=== PATIENT | male | born 1940 | race Caucasian/White ===

== ENCOUNTER 2017-09-04 17:38 | Inpatient (IN) ==
[2017-09-04] MEDS ORDERED: 0.9 % Sodium Chloride 1,000 ML IVC ONE (20:30)
--- NOTE | 2017-09-04 20:48 | Emergency Department Note ---
Disposition Clinical Impression: SIRS (systemic inflammatory response syndrome), Hyperglycemia, Acute cholecystitis, Generalized weakness Disposition: Admitted As Inpatient Condition: Good General Adult HPI - General Chief complaint: ED General Medical Stated complaint: Hyperglycemia Time Seen by Provider: 09/04/17 20:23 Source: patient, family Mode of arrival: private vehicle Limitations: no limitations Nursing Notes Reviewed: Yes Vital Signs Reviewed: Yes - History of Present Illness HPI Narrative: 76-year-old male history of type 2 diabetes treated with oral medications who presents to the ER due to hyperglycemia and weakness. Reports elevated sugars for the last 2-3 days. He is also felt weak during that time. No focal weakness just general. He called his primary care provider today who told him to come here since his glucose was high. He denies any recent illnesses. No chest pain or shortness of breath. No abdominal pain. He did have one episode of vomiting yesterday. No dysuria or hematuria. No recent changes in his medications. No other complaints. Pt Subjective Complaint: Weakness, hyperglycemia Onset (ago): day(s) Pain Scale: 0 Improves with: nothing Worsens with: nothing Associated symptoms: Reports: cough. Denies: chest pain, fever/chills, shortness of breath Treatments Prior to Arrival: none - Related Data Home Medications Medication Instructions Recorded Confirmed GlipiZIDE 10 mg PO DAILY 11/13/15 03/08/16 Lisinopril-HCTZ 10-12.5 [Prinzide 1 each PO DAILY 11/13/15 03/08/16 10-12.5] Metformin HCl [Glucophage] 1,000 mg PO BID 11/13/15 03/08/16 Pioglitazone [Actos] 45 mg PO DAILY 11/13/15 03/08/16 Pravastatin Sodium 10 mg PO DAILY 11/13/15 03/08/16 Aspirin EC 325 mg PO BID 03/08/16 03/08/16 Ferrous Sulfate [Iron] 325 mg PO DAILY 03/08/16 03/08/16 HYDROcodone/Acet 5/325 mg [Benld 1 tab PO Q4HR PRN 03/08/16 03/08/16 5-325 mg] Previous Rx's Medication Instructions Recorded HYDROcodone/Acet 5/325 mg [Benld 1 tab PO Q6HR PRN #20 tablet 11/16/15 5-325 mg] Allergies Allergy/AdvReac Type Severity Reaction Status Date / Time No Known Allergies Allergy Verified 11/12/15 21:17 All systems ED: reviewed and negative except as stated. Constitutional: Denies: fever Cardiovascular: Denies: chest pain Respiratory: Reports: cough. Denies: dyspnea Gastrointestinal: Denies: abdominal pain, nausea, vomiting, diarrhea Neurological: Reports: weakness Past Medical History - Past Medical History Attestation: Yes The following information was validated with the patient. Source: patient Medical history: Reports: arthritis, diabetes, hyperlipidemia, hypertension, other Surgical history: Reports: cataract Psychiatric history: Reports: no psych history - Social History Smoking Status: Former smoker Smokeless Tobacco Status: No Alcohol use: Reports: none Drug use: Reports: none Physical Exam - General Limitations: no limitations General appearance: alert, in no apparent distress - Head Head exam: atraumatic, normocephalic - Eye Eye exam: Present: normal appearance - ENT ENT exam: normal exam - Neck Neck exam: Present: normal inspection, full ROM - Chest Chest inspection: Present: normal inspection, symmetric chest wall rise - Respiratory Respiratory exam: Present: normal lung sounds bilaterally - Cardiovascular Cardiovascular exam: Present: regular rate, normal rhythm, normal heart sounds - Abdominal Exam Abdominal exam: Present: soft, Non-Tender. Absent: tenderness, distention, rigidity - Extremities Exam Extremities exam: Present: normal inspection, full ROM - Expanded Upper Extremity Exam Shoulder exam: Present: normal inspection, full ROM Arm exam: Present: normal inspection, full ROM Elbow exam: Present: normal inspection, full ROM Forearm/Wrist exam: Present: normal inspection, full ROM Hand exam: Present: normal inspection, full ROM - Expanded Lower Extremity Exam Hip/Pelvis exam: Present: normal inspection, full ROM Upper leg exam: Present: normal inspection, full ROM Knee exam: Present: normal inspection, full ROM Lower leg exam: Present: normal inspection, full ROM Ankle exam: Present: normal inspection, full ROM Foot/toe exam: Present: normal inspection, full ROM - Psychiatric Psychiatric exam: Present: normal affect - Skin Skin exam: Present: warm, dry Course Course Narrative: Patient seen and examined. Vital signs reviewed. We will check labs for evaluation of DKA as well as urinalysis and chest x-ray given his cough. - Reevaluation(s) Reevaluation #1: Discussed results of labs and imaging with the patient. He does meet SIRS criteria. No obvious source. CT scan of the abdomen and pelvis and admission as well as broad-spectrum antibiotics. Reevaluation #2: CT with evidence of acute cholecystitis. LFTs ordered. Patient has no Abdominal pain. - Consultations Consultation #1: I spoke with the on-call surgeon Dr. Harden. Discussed the patient's history exam imaging and labs. They will see the patient consultation in the morning. Requests to have the patient on antibiotics. Vital Signs Temperature 99.6 F 09/04/17 18:50 Pulse Rate 112 09/04/17 18:50 Respiratory Rate 18 09/04/17 18:50 Blood Pressure 146/70 09/04/17 18:50 O2 Sat by Pulse Oximetry 96 09/04/17 18:50 Temperature 98.6 F 09/05/17 02:36 Pulse Rate 116 09/05/17 02:36 Respiratory Rate 14 09/05/17 02:36 Blood Pressure 169/79 09/05/17 02:36 O2 Sat by Pulse Oximetry 96 09/05/17 03:15 Oxygen Delivery Oxygen Delivery Room Air Medical Decision Making - [facility] Narrative Medical decision making narrative: 76-year-old male presents to the ER due to hyperglycemia and weakness for 2 days. He is afebrile here. Slightly tachycardic noted to have a leukocytosis of 22 without a source. Patient also hyperglycemic. Patient given broad- spectrum antibiotics. CT scan of the abdomen and pelvis well. Report of acute cholecystitis. LFTs, lipase and alkaline phosphatase are normal. Case discussed with general surgery who will see in consultation. Admitted to the hospitalist service. - Lab Data Lab results reviewed: Yes I reviewed the patient's lab results. Result diagrams: 09/04/17 20:40 09/04/17 20:40 Lab Results 09/04/17 09/04/17 09/04/17 Range/Units 18:52 20:40 20:40 WBC 22.0 H (4.3-11.1) K/mcL RBC 3.59 L (4.19-5.50) M/mcL Hgb 11.3 L (12.9-16.9) g/dL Hct 34.0 L (37.5-50.1) % MCV 94.7 (83.0-100.0) fL MCH 31.5 (28.0-33.3) pg MCHC 33.2 (31.6-35.5) g/dL RDW 11.9 (11.5-14.5) % Plt Count 304 (140-400) K/mcL MPV 11.0 (9.4-12.4) fL Immature Gran % 0.7 (0-4) % Seg Neutrophils % 81.7 % Lymphocytes % 6.6 % Monocytes % 8.7 % Eosinophils % 2.0 % Basophils % 0.3 % Neutrophils # 18.0 H (1.6-8.9) K/mcL Lymphocytes # 1.5 (0.6-4.6) K/mcL Monocytes # 1.9 H (0.0-1.3) K/mcL Eosinophils # 0.4 (0.0-0.6) K/mcL Basophils # 0.1 (0.0-0.2) K/mcL PT (9.4-12.1) Seconds INR VBG pH (7.32-7.42) pH Units VBG pCO2 (41-51) mmHg VBG pO2 (25-50) mmHg VBG HCO3 (21-27) mEq/L Sodium 129 L (136-145) mEq/L Potassium 4.2 (3.5-5.1) mEq/L Chloride 93 L (98-107) mEq/L Carbon Dioxide 27 (23-29) mEq/L BUN 47 H (8-23) mg/dL Creatinine 1.40 H (0.70-1.30) mg/dL Est GFR ( Amer) 60 (> 60) Est GFR (Non-Af Amer) 49 L (> 60) BUN/Creatinine Ratio 34 H (6-26) Glucose 379 H (70-105) mg/dL POC Glucose 387 H (58-89) Calculated Osmolality 296 (280-300) Lactic Acid (0.5-2.2) mmol/L Calcium 9.6 (8.6-10.3) mg/dL Total Bilirubin (0.3-1.0) mg/dL Direct Bilirubin (0.0-0.2) mg/dL Indirect Bilirubin (0.0-1.2) mg/dL AST (13-39) Units/L ALT (7-52) Units/L Alkaline Phosphatase (34-104) Units/L Serum Total Protein (6.4-8.9) g/dL Albumin (3.5-5.7) g/dL Globulin (2.4-3.5) g/dL Albumin/Globulin Ratio (1.1-2.2) Lipase (11-82) Units/L Beta-Hydroxybutyric Acd (0.02-0.27) mmol/L Urine Color (Yellow) Urine Clarity (Clear) Urine pH (5.0-8.0) pH Units Ur Specific [place] (1.010-1.025) Urine Protein (Neg-Trace) mg/dL Urine Glucose (UA) (Normal) mg/dL Urine Ketones (Negative) mg/dL Urine Blood (Negative) Urine Nitrite (Negative) Urine Bilirubin (Negative) Urine Urobilinogen (Normal) mg/dL Ur Leukocyte Esterase (Negative) Urine Microscopic RBC (0-3) per hpf Urine Microscopic WBC (0-3) per hpf Ur Squamous Epith Cells (None-Few) per lpf Urine Bacteria (None-Few) per hpf Hyaline Casts (None-Few) per lpf Ur Culture Indicated? (NO) 09/04/17 09/04/17 09/04/17 Range/Units 20:40 20:59 21:33 WBC (4.3-11.1) K/mcL RBC (4.19-5.50) M/mcL Hgb (12.9-16.9) g/dL Hct (37.5-50.1) % MCV (83.0-100.0) fL MCH (28.0-33.3) pg MCHC (31.6-35.5) g/dL RDW (11.5-14.5) % Plt Count (140-400) K/mcL MPV (9.4-12.4) fL Immature Gran % (0-4) % Seg Neutrophils % % Lymphocytes % % Monocytes % % Eosinophils % % Basophils % % Neutrophils # (1.6-8.9) K/mcL Lymphocytes # (0.6-4.6) K/mcL Monocytes # (0.0-1.3) K/mcL Eosinophils # (0.0-0.6) K/mcL Basophils # (0.0-0.2) K/mcL PT (9.4-12.1) Seconds INR VBG pH 7.34 (7.32-7.42) pH Units VBG pCO2 54 H (41-51) mmHg VBG pO2 36 (25-50) mmHg VBG HCO3 29 H (21-27) mEq/L Sodium (136-145) mEq/L Potassium (3.5-5.1) mEq/L Chloride (98-107) mEq/L Carbon Dioxide (23-29) mEq/L BUN (8-23) mg/dL Creatinine (0.70-1.30) mg/dL Est GFR ( Amer) (> 60) Est GFR (Non-Af Amer) (> 60) BUN/Creatinine Ratio (6-26) Glucose (70-105) mg/dL POC Glucose (58-89) Calculated Osmolality (280-300) Lactic Acid (0.5-2.2) mmol/L Calcium (8.6-10.3) mg/dL Total Bilirubin (0.3-1.0) mg/dL Direct Bilirubin (0.0-0.2) mg/dL Indirect Bilirubin (0.0-1.2) mg/dL AST (13-39) Units/L ALT (7-52) Units/L Alkaline Phosphatase (34-104) Units/L Serum Total Protein (6.4-8.9) g/dL Albumin (3.5-5.7) g/dL Globulin (2.4-3.5) g/dL Albumin/Globulin Ratio (1.1-2.2) Lipase (11-82) Units/L Beta-Hydroxybutyric Acd 0.91 H (0.02-0.27) mmol/L Urine Color Yellow (Yellow) Urine Clarity Clear (Clear) Urine pH 5.5 (5.0-8.0) pH Units Ur Specific Al[place] 1.021 (1.010-1.025) Urine Protein 30 H (Neg-Trace) mg/dL Urine Glucose (UA) 500 H (Normal) mg/dL Urine Ketones Trace H (Negative) mg/dL Urine Blood Negative (Negative) Urine Nitrite Negative (Negative) Urine Bilirubin Small H (Negative) Urine Urobilinogen Normal (Normal) mg/dL Ur Leukocyte Esterase Negative (Negative) Urine Microscopic RBC 0-3 (0-3) per hpf Urine Microscopic WBC 0-3 (0-3) per hpf Ur Squamous Epith Cells Few (None-Few) per lpf Urine Bacteria None Seen (None-Few) per hpf Hyaline Casts None Seen (None-Few) per lpf Ur Culture Indicated? NO (NO) 09/04/17 09/05/17 09/05/17 Range/Units 23:17 00:43 00:43 WBC (4.3-11.1) K/mcL RBC (4.19-5.50) M/mcL Hgb (12.9-16.9) g/dL Hct (37.5-50.1) % MCV (83.0-100.0) fL MCH (28.0-33.3) pg MCHC (31.6-35.5) g/dL RDW (11.5-14.5) % Plt Count (140-400) K/mcL MPV (9.4-12.4) fL Immature Gran % (0-4) % Seg Neutrophils % % Lymphocytes % % Monocytes % % Eosinophils % % Basophils % % Neutrophils # (1.6-8.9) K/mcL Lymphocytes # (0.6-4.6) K/mcL Monocytes # (0.0-1.3) K/mcL Eosinophils # (0.0-0.6) K/mcL Basophils # (0.0-0.2) K/mcL PT 12.8 H (9.4-12.1) Seconds INR 1.2 VBG pH (7.32-7.42) pH Units VBG pCO2 (41-51) mmHg VBG pO2 (25-50) mmHg VBG HCO3 (21-27) mEq/L Sodium (136-145) mEq/L Potassium (3.5-5.1) mEq/L Chloride (98-107) mEq/L Carbon Dioxide (23-29) mEq/L BUN (8-23) mg/dL Creatinine (0.70-1.30) mg/dL Est GFR ( Amer) (> 60) Est GFR (Non-Af Amer) (> 60) BUN/Creatinine Ratio (6-26) Glucose (70-105) mg/dL POC Glucose (58-89) Calculated Osmolality (280-300) Lactic Acid 0.9 (0.5-2.2) mmol/L Calcium (8.6-10.3) mg/dL Total Bilirubin 0.5 (0.3-1.0) mg/dL Direct Bilirubin 0.2 (0.0-0.2) mg/dL Indirect Bilirubin 0.3 (0.0-1.2) mg/dL AST 16 (13-39) Units/L ALT 14 (7-52) Units/L Alkaline Phosphatase 72 (34-104) Units/L Serum Total Protein 7.3 (6.4-8.9) g/dL Albumin 3.4 L (3.5-5.7) g/dL Globulin 3.9 H (2.4-3.5) g/dL Albumin/Globulin Ratio 0.9 L (1.1-2.2) Lipase (11-82) Units/L Beta-Hydroxybutyric Acd (0.02-0.27) mmol/L Urine Color (Yellow) Urine Clarity (Clear) Urine pH (5.0-8.0) pH Units Ur Specific [place] (1.010-1.025) Urine Protein (Neg-Trace) mg/dL Urine Glucose (UA) (Normal) mg/dL Urine Ketones (Negative) mg/dL Urine Blood (Negative) Urine Nitrite (Negative) Urine Bilirubin (Negative) Urine Urobilinogen (Normal) mg/dL Ur Leukocyte Esterase (Negative) Urine Microscopic RBC (0-3) per hpf Urine Microscopic WBC (0-3) per hpf Ur Squamous Epith Cells (None-Few) per lpf Urine Bacteria (None-Few) per hpf Hyaline Casts (None-Few) per lpf Ur Culture Indicated? (NO) 09/05/17 Range/Units 00:43 WBC (4.3-11.1) K/mcL RBC (4.19-5.50) M/mcL Hgb (12.9-16.9) g/dL Hct (37.5-50.1) % MCV (83.0-100.0) fL MCH (28.0-33.3) pg MCHC (31.6-35.5) g/dL RDW (11.5-14.5) % Plt Count (140-400) K/mcL MPV (9.4-12.4) fL Immature Gran % (0-4) % Seg Neutrophils % % Lymphocytes % % Monocytes % % Eosinophils % % Basophils % % Neutrophils # (1.6-8.9) K/mcL Lymphocytes # (0.6-4.6) K/mcL Monocytes # (0.0-1.3) K/mcL Eosinophils # (0.0-0.6) K/mcL Basophils # (0.0-0.2) K/mcL PT (9.4-12.1) Seconds INR VBG pH (7.32-7.42) pH Units VBG pCO2 (41-51) mmHg VBG pO2 (25-50) mmHg VBG HCO3 (21-27) mEq/L Sodium (136-145) mEq/L Potassium (3.5-5.1) mEq/L Chloride (98-107) mEq/L Carbon Dioxide (23-29) mEq/L BUN (8-23) mg/dL Creatinine (0.70-1.30) mg/dL Est GFR ( Amer) (> 60) Est GFR (Non-Af Amer) (> 60) BUN/Creatinine Ratio (6-26) Glucose (70-105) mg/dL POC Glucose (58-89) Calculated Osmolality (280-300) Lactic Acid (0.5-2.2) mmol/L Calcium (8.6-10.3) mg/dL Total Bilirubin (0.3-1.0) mg/dL Direct Bilirubin (0.0-0.2) mg/dL Indirect Bilirubin (0.0-1.2) mg/dL AST (13-39) Units/L ALT (7-52) Units/L Alkaline Phosphatase (34-104) Units/L Serum Total Protein (6.4-8.9) g/dL Albumin (3.5-5.7) g/dL Globulin (2.4-3.5) g/dL Albumin/Globulin Ratio (1.1-2.2) Lipase 21 (11-82) Units/L Beta-Hydroxybutyric Acd (0.02-0.27) mmol/L Urine Color (Yellow) Urine Clarity (Clear) Urine pH (5.0-8.0) pH Units Ur Specific [place] (1.010-1.025) Urine Protein (Neg-Trace) mg/dL Urine Glucose (UA) (Normal) mg/dL Urine Ketones (Negative) mg/dL Urine Blood (Negative) Urine Nitrite (Negative) Urine Bilirubin (Negative) Urine Urobilinogen (Normal) mg/dL Ur Leukocyte Esterase (Negative) Urine Microscopic RBC (0-3) per hpf Urine Microscopic WBC (0-3) per hpf Ur Squamous Epith Cells (None-Few) per lpf Urine Bacteria (None-Few) per hpf Hyaline Casts (None-Few) per lpf Ur Culture Indicated? (NO) - Radiology Data Radiology results reviewed: Yes I reviewed the patient's radiology results. Chest X-Ray 09/04/17 20:29 IMPRESSION: No acute process. D/ / Michael Cabrales MD / Michael Cabrales MD Interpreting Provider: Michael Cabrales MD Chest X-Ray 09/04/17 20:29 IMPRESSION: No acute process. D/ / Michael Cabrales MD / Michael Cabrales MD Interpreting Provider: Michael Cabrales MD Abdomen/Pelvis CT 09/04/17 22:45 IMPRESSION: 1. There is extensive fat stranding within the right upper quadrant centered at the gallbladder. This is most compatible with acute calculus cholecystitis. 2. There is also evidence of mural thickening involving the 2nd and 3rd portions of duodenum, but that is probably reactive. D/ / Mike Al MD / Mike Al MD Interpreting Provider: Mike Al MD - EKG Data EKG #1 EKG attestation: Yes I reviewed and interpreted this EKG. EKG results narrative: EKG demonstrates sinus tachycardia with a rate of 106. Left axis deviation. Normal intervals. Normal R-wave progression. No gross ST elevations or depressions. No acute ischemic findings. No significant changes from previous EKG dated 04/17/17. Critical Care Time Critical Care Time: Yes Total Critical Care Time: 35 Attestation: Critical care performed: Time is exclusive of separately billable procedures. Time includes: direct patient care, patient reassessment, coordination of patient care, interpretation of data (laboratory data, radiology data, and respiratory data), review of patient's medical records, medical consultation and documentation of patient care. Procedures included in critical care time: Procedures excluded from critical care time: S.Oscar. - [place] Situation: Demographics, MOA Background: Presenting Complaint, Relevant PMH, Meds, & Allergies Assessment: Vital Signs, Course and respsone to treatment, Exam Concerns, Patient/Family Expectation, Pertinant Lab Results Recommendation: Barrier(s) to disposition, Recommendation based on pending studies, treatments, or consults SBrendon Report Given to: Dr. Keller Attestation Statement - Attestation Attestation: I, Shelton Peñaloza MD, personally evaluated this patient and discussed their management with the resident physician. I reviewed the resident's note and agree with the documented findings, medical decision making, and plan of care. 76-year-old male presents to the emergency department with a complaint of generalized weakness and high blood sugar for the past few days. She denies any cough or chest pain or shortness of breath. No fever. No nausea or vomiting. He states that he just does not feel well and feels weak. No GI bleed symptoms. No UTI symptoms. On examination patient is a well-developed well-nourished well-appearing elderly male in no acute distress. He is alert and oriented 3. There is no cyanosis or diaphoresis. Breath sounds are clear and equal bilaterally. Heart regular rate and rhythm. Abdomen is soft and nontender with normal bowel sounds. No gross focal neurological deficits. Labs reviewed. WBC 22. Chest x-ray negative. UA negative. CT of the abdomen and pelvis is pending. Patient meets surge criteria. The hospitalist, Dr. Keller, was consulted and accepted admission of the patient.
[2017-09-04 20:49] LABS: Basophils # 0.1 K/mcL (0.0-0.2); Basophils % 0.3 %; Eosinophils # 0.4 K/mcL (0.0-0.6); Hemoglobin 11.3 g/dL (12.9-16.9); Immature Granulocytes % 0.7 % (0-4); Lymphocytes # 1.5 K/mcL (0.6-4.6); Lymphocytes % 6.6 %; Mean Corpuscular HGB Conc 33.2 g/dL (31.6-35.5); Mean Corpuscular Hemoglobin 31.5 pg (28.0-33.3); Mean Corpuscular Volume 94.7 fL (83.0-100.0); Monocytes # 1.9 K/mcL (0.0-1.3); Monocytes % 8.7 %; Platelet Count 304 K/mcL (140-400); Red Blood Count 3.59 M/mcL (4.19-5.50); Red Cell Distribution Width 11.9 % (11.5-14.5); Segmented Neutrophils % 81.7 %
[2017-09-04 21:02] LABS: VBG HCO3 29 mEq/L (21-27); VBG PCO2 54 mmHg (41-51); VBG PH 7.34 pH Units (7.32-7.42); VBG PO2 36 mmHg (25-50)
[2017-09-04 21:34] LABS: Calcium 9.6 mg/dL (8.6-10.3); Potassium 4.2 mEq/L (3.5-5.1)
[2017-09-04 21:43] LABS: Bilirubin,Urine Small (Negative); Blood,Urine Negative (Negative); Clarity,Urine Clear (Clear); Color,Urine Yellow (Yellow); Glucose,Urine (UA) 500 mg/dL (Normal); Ketones,Urine Trace mg/dL (Negative); Leukocyte Esterase,Urine Negative (Negative); Nitrite,Urine Negative (Negative); PH,Urine 5.5 pH Units (5.0-8.0); Protein,Urine 30 mg/dL (Neg-Trace); Specific Gravity,Urine 1.021 (1.010-1.025); Urobilinogen,Urine Normal (Normal)
[2017-09-04 21:46] LABS: Bacteria,Urine None Seen per hpf (None-Few); Hyaline Casts,Urine None Seen per lpf (None-Few); RBC,Urine 0-3 per hpf (0-3); Squamous Epithelial Cell,Urine Few per lpf (None-Few); WBC,Urine 0-3 per hpf (0-3)
[2017-09-04] MEDS ORDERED: Piperacillin/Tazobactam 3.375 GM in 0.9 % Sodium Chloride Mini Bag 100 ML IVPB ONE (22:46)
[2017-09-05 01:04] LABS: INR 1.2; Prothrombin Time 12.8 Seconds (9.4-12.1)
[2017-09-05 01:24] LABS: Albumin 3.4 g/dL (3.5-5.7); Albumin/Globulin Ratio 0.9 (1.1-2.2); Bilirubin,Direct 0.2 mg/dL (0.0-0.2); Bilirubin,Indirect 0.3 mg/dL (0.0-1.2); Bilirubin,Total 0.5 mg/dL (0.3-1.0); Globulin 3.9 g/dL (2.4-3.5); Total Protein 7.3 g/dL (6.4-8.9)
[2017-09-05] MEDS ORDERED: Acetaminophen 325 MG TABLET PO PRN (01:42)
[2017-09-05] MEDS ORDERED: Naloxone 0.4 MG/ML INJ IVP PRN (01:42)
[2017-09-05] MEDS ORDERED: *HR* Dextrose 50 % in Water (Syg) 50 ML SYRINGE IVP PRN (01:51)
[2017-09-05] MEDS ORDERED: Dextrose Gel 15 GM/37.5 ML TUBE PO PRN ×2 (01:51)
[2017-09-05] MEDS ORDERED: D5% in Water 1,000 ML IVC PRN (01:51)
[2017-09-05] MEDS: 0.9 % Sodium Chloride 1,000 ML IVC SCH ×2 (03:15→13:04)
--- NOTE | 2017-09-05 04:49 | Internal Med History&Physical ---
Date of Encounter: 09/05/17 Time of Encounter: 01:00 Assessment and Plan (1) Sepsis Current visit: Yes Status: Acute Pt meets sepsis criteria with leukocytosis and tachycardia. Source of infection was considered cholecystitis. - Early goal directed IVF resuscitation started. - Initial lactate 0.9 - Will cont zosyn, f/u blood culture Qualifiers: Sepsis type: Escherichia coli Qualified Code(s): A41.51 - Sepsis due to Escherichia coli [E. coli] (2) Acute cholecystitis Current visit: Yes Status: Acute Pt denies abd pain but has signs of sepsis. Cont abx. - NPO, IVF. - Surgery consult - US gall bladder in AM - Pt has wnl liver enzyme, bilirubin and lipase (3) Generalized weakness Current visit: Yes Status: Acute Possibly due to sepsis. Flu test negative. (4) DVT prophylaxis Current visit: No Status: Acute EPCD for now, in case of surgery. May start AC after surgery. (5) Diabetes Current visit: No Status: Chronic Poorly controlled probably due to sepsis. Place pt on SSI. Qualifiers: Diabetes mellitus type: type 2 Diabetes mellitus complication status: without complication Diabetes mellitus manager terminal insulin use: without jail use Qualified Code(s): E11.9 - Type 2 diabetes mellitus without complications (6) HTN (hypertension) Current visit: No Status: Chronic Cont home meds. Qualifiers: Hypertension type: essential hypertension Qualified Code(s): I10 - Essential (primary) hypertension Internal Medicine - H&P: HPI Chief complaint: Weakness Admitted From: Home Plans for Post Hospital Care: Home History of present illness: Mr. Chavarria is a 76 year old male with Hx of HTN, DM, polio with both leg weakness present to ER for weakness and high blood sugar. Pt said weakness is generallized. Pt has one mechanical fall yesterday as well, denies head injury. Pt c/o runny nose for 3-4 days and nonproductive cough for weeks. Pt denies abd pain or nausea, but has poor appetite and has vomitted once on Friday, vomiting was liquid, no blood in it. Pt denies fever. In ER, he was found leukocytosis to 22K, neutrophil dominated. Further test shows CXR negative, UA unremarkable, but CT abd shows gall stone with cholecystitis. Pt was started zosyn in ER and surgical consult was called. Pt was admitted for further management. Past Med Surg Social Fam HX - Past Medical History Medical history: arthritis, diabetes, hyperlipidemia, hypertension, other Psychiatric history: no psych history - Past Surgical History Surgical History: cataract - Social History Smoking Status: Former smoker Smokeless Tobacco Status: No Alcohol use: none Drug use: none - Family History Mother History Unknown: Yes Internal Medicine - H&P: Meds GlipiZIDE 10 mg PO DAILY 11/13/15 [History] Lisinopril-HCTZ 10-12.5 [Prinzide 10-12.5] 1 each PO DAILY 11/13/15 [History] Metformin HCl [Glucophage] 1,000 mg PO BID 11/13/15 [History] Pioglitazone [Actos] 45 mg PO DAILY 11/13/15 [History] Pravastatin Sodium 10 mg PO DAILY 11/13/15 [History] HYDROcodone/Acet 5/325 mg [[place] 5-325 mg] 1 tab PO Q6HR PRN #20 tablet [Rx] Aspirin EC 325 mg PO BID 03/08/16 [History] Ferrous Sulfate [Iron] 325 mg PO DAILY 03/08/16 [History] HYDROcodone/Acet 5/325 mg [[place] 5-325 mg] 1 tab PO Q4HR PRN 03/08/16 [History] 3 Allergy/AdvReac Type Severity Reaction Status Date / Time No Known Allergies Allergy Verified 11/12/15 21:17 All Systems PM: A 10-system review of systems was performed and is negative for pertinent findings except as documented above in the HPI. - Constitutional Vitals: Temp Pulse Resp BP Pulse Ox 98.6 F 116 14 169/79 96 09/05/17 02:36 09/05/17 02:36 09/05/17 02:36 09/05/17 02:36 09/05/17 03:15 General appearance: Present: A&O X 3, no acute distress, answers questions appropriately - Head Head exam: Present: atraumatic, normocephalic - Eye Eye exam: Present: PERRL, conjuntiva pink, sclera anicteric Pupils: Present: PERRL - Neck Neck exam general surgery: Present: supple, trachea midline. Absent: lymphadenopathy - Respiratory Respiratory exam: Present: CTAB. Absent: accessory muscle use, rales, rhonchi, wheezes - Cardiovascular Cardiovascular exam: Present: RRR, +S1, +S2. Absent: diastolic murmur, gallop, rubs, systolic murmur - GI/Abdominal GI/Abdominal exam: Present: normal bowel sounds, soft, no peritoneal signs. Absent: distended, tenderness Additional comments: Morphy's sign negative - Extremities Exam Extremities exam: Present: warm, radial pulses palpable and symmetrical. Absent : calf tenderness, cyanotic, pedal edema - Neurological Exam Neurological exam: Present: CN II-XII intact, oriented X3, no focal deficits. Absent: pronater drift, facial droop, speech deficit - Skin Skin exam: Present: dry, intact Internal Med - H&P Results - Labs CBC & Chem 7: 09/04/17 20:40 09/04/17 20:40 - EKG Data -: EKG Interpreted by Myself EKG shows normal: sinus rhythm Rate: tachycardia
[2017-09-05] MEDS: Insulin LISPRO 300 UNITS/3 ML VIAL SQ SCH ×4 (05:18→17:29)
[2017-09-05] MEDS ORDERED: Insulin LISPRO 300 UNITS/3 ML VIAL SQ SCH (06:00)
[2017-09-05 06:05] LABS: Basophils % 0.2 %; Eosinophils # 0.5 K/mcL (0.0-0.6); Eosinophils % 2.8 %; Hematocrit 29.3 % (37.5-50.1); Immature Granulocytes % 1.1 % (0-4); Lymphocytes # 1.5 K/mcL (0.6-4.6); Lymphocytes % 8.6 %; Mean Corpuscular HGB Conc 33.1 g/dL (31.6-35.5); Mean Corpuscular Hemoglobin 31.1 pg (28.0-33.3); Mean Corpuscular Volume 93.9 fL (83.0-100.0); Mean Platelet Volume 11.1 fL (9.4-12.4); Monocytes # 1.6 K/mcL (0.0-1.3); Monocytes % 8.8 %; Platelet Count 259 K/mcL (140-400); Red Blood Count 3.12 M/mcL (4.19-5.50); Red Cell Distribution Width 11.9 % (11.5-14.5); Segmented Neutrophils % 78.5 %
[2017-09-05 06:07] LABS: Hemoglobin 9.7 g/dL (12.9-16.9)
[2017-09-05 06:19] LABS: BUN/Creatinine Ratio 32 (6-26); Blood Urea Nitrogen 39 mg/dL (8-23); Calcium 8.6 mg/dL (8.6-10.3); Carbon Dioxide 24 mEq/L (23-29); Chloride 99 mEq/L (98-107); Glucose 313 mg/dL (70-105); Magnesium 1.6 mg/dL (1.6-2.6); Osmolality,Calculated 295 (280-300); Sodium 132 mEq/L (136-145); eGFR For African Americans > 60 (> 60); eGFR For Non-African Americans 58 (> 60)
--- NOTE | 2017-09-05 11:09 | General Surgery Consult Note ---
Date of Encounter: 09/05/17 Time of Encounter: 10:45 Assessment and Plan (1) Cholelithiasis Current Visit: Yes Status: Acute Patient is asymptomatic- denies any abdominal pain, nausea/vomiting, diarrhea/ constipation No urgent surgical intervention indicated at this time. Gallbladder is an unlikely source of the patient's sepsis Qualifiers: Cholelithiasis location: gallbladder Cholecystitis presence: without cholecystitis Biliary obstruction: without biliary obstruction Qualified Code(s): K80.20 - Calculus of gallbladder without cholecystitis without obstruction History of Present Illness Consult date: 09/05/17 Reason for consult: other (Abnormal CT) Requesting physician: Alex Holman History of present illness: Mr. Chavarria is a very pleasant 76 year old male who states he reported to the ED with complaints of elevated blood sugars and generalized weakness. He has a past medical history for Type 2 DM, HTN, HLD, post polio syndrome. His work-up in the ED included a CT scan of the abdomen/pelvis. The imaging shows concerns for cholecystitis. We have been asked to see and evaluate the patient for further evaluation. He denies any abdominal pain. He denies any nausea or vomiting. He denies any diarrhea or constipation. He denies any decrease in appetite or unexplained weight loss. He denies any significant reflux. Past Med Surg Social Fam HX - Past Medical History Source: patient, old records reviewed Medical history: arthritis, diabetes, hyperlipidemia, hypertension, other (post polio syndrome) Psychiatric history: no psych history - Past Surgical History Surgical History: cataract, orthopedic, other (Right hip surgery) - Social History Smoking Status: Former smoker Smokeless Tobacco Status: No Alcohol use: none (Quit 20 years ago) Drug use: none Current living situation: Home - Independent, Home Activity Level: Wheelchair bound - Family History Mother History Unknown: Yes Medications and Allergies Metformin HCl [Glucophage] 1,000 mg PO BID 11/13/15 [History] Pioglitazone [Actos] 45 mg PO DAILY 11/13/15 [History] Ferrous Sulfate [Iron] 325 mg PO DAILY 03/08/16 [History] GlipiZIDE XL (24 HR) [Glucotrol XL] 10 mg PO BID 09/05/17 [History] Lisinopril [Zestril] 10 mg PO DAILY 09/05/17 [History] Multivit-Min/FA/Lycopen/Lutein [A Thru Z Select Multivit Tab] 1 tab PO DAILY [History] Pravastatin Sodium [Pravachol] 80 mg PO DAILY 09/05/17 [History] hydroCHLOROthiazide [Hydrochlorothiazide] 25 mg PO DAILY 09/05/17 [History] 3 Allergy/AdvReac Type Severity Reaction Status Date / Time No Known Allergies Allergy Verified 11/12/15 21:17 Review of Systems All systems PM: reviewed and no additional remarkable complaints except as stated (in the HPI) All systems PM: A 10-system review of systems was performed and is negative for pertinent findings except as documented above in the HPI. General Surgery Exam Initial Vital Signs Temp Pulse Resp BP Pulse Ox 99.6 F 112 18 146/70 96 09/04/17 18:50 09/04/17 18:50 09/04/17 18:50 09/04/17 18:50 09/04/17 18:50 - General physical appearance well developed, well nourished, no distress, no pain, chronically ill - Eyes PERRL, normal ocular movement - ENT normal mucosa, atraumatic, normocephalic - Neck trachea midline - Respiratory normal respiratory effort, clear to auscultation - Cardiovascular Cardiovascular exam: Present: RRR - Abdomen Abdomen general surgery: Present: bowel sounds present, soft, non tender - Integumentary Integumentary general surgery: Present: warm and dry - Neurologic Present: CN 2-12 grossly intact - Psychiatric Psychiatric general surgery: Present: appropriate, oriented to person, oriented to place, oriented to time, speech is normal, memory intact Exam Initial Vital Signs Temp Pulse Resp BP Pulse Ox 99.6 F 112 18 146/70 96 09/04/17 18:50 09/04/17 18:50 09/04/17 18:50 09/04/17 18:50 09/04/17 18:50 Results - Labs 09/05/17 05:39 09/05/17 05:39 Abnormal lab results WBC 17.8 K/mcL (4.3-11.1) H 09/05/17 05:39 RBC 3.12 M/mcL (4.19-5.50) L 09/05/17 05:39 Hgb 9.7 g/dL (12.9-16.9) L D 09/05/17 05:39 Hct 29.3 % (37.5-50.1) L 09/05/17 05:39 Neutrophils # 14.0 K/mcL (1.6-8.9) H 09/05/17 05:39 Monocytes # 1.6 K/mcL (0.0-1.3) H 09/05/17 05:39 PT 12.8 Seconds (9.4-12.1) H 09/05/17 00:43 VBG pCO2 54 mmHg (41-51) H 09/04/17 20:59 VBG HCO3 29 mEq/L (21-27) H 09/04/17 20:59 Sodium 132 mEq/L (136-145) L 09/05/17 05:39 BUN 39 mg/dL (8-23) H 09/05/17 05:39 Est GFR (Non-Af Amer) 58 (> 60) L 09/05/17 05:39 BUN/Creatinine Ratio 32 (6-26) H 09/05/17 05:39 Glucose 313 mg/dL (70-105) H 09/05/17 05:39 POC Glucose 387 (58-89) H 09/04/17 18:52 Albumin 3.4 g/dL (3.5-5.7) L 09/05/17 00:43 Globulin 3.9 g/dL (2.4-3.5) H 09/05/17 00:43 Albumin/Globulin Ratio 0.9 (1.1-2.2) L 09/05/17 00:43 Beta-Hydroxybutyric Acd 0.91 mmol/L (0.02-0.27) H 09/04/17 20:40 Urine Protein 30 mg/dL (Neg-Trace) H 09/04/17 21:33 Urine Glucose (UA) 500 mg/dL (Normal) H 09/04/17 21:33 Urine Ketones Trace mg/dL (Negative) H 09/04/17 21:33 Urine Bilirubin Small (Negative) H 09/04/17 21:33 Diabetes panel 09/05/17 Range/Units 05:39 Sodium 132 L (136-145) mEq/L Potassium 4.0 (3.5-5.1) mEq/L Chloride 99 (98-107) mEq/L Carbon Dioxide 24 (23-29) mEq/L BUN 39 H (8-23) mg/dL Creatinine 1.21 (0.70-1.30) mg/dL Glucose 313 H (70-105) mg/dL Calcium 8.6 (8.6-10.3) mg/dL Calcium panel 09/05/17 Range/Units 05:39 Calcium 8.6 (8.6-10.3) mg/dL Pituitary panel 09/05/17 Range/Units 05:39 Sodium 132 L (136-145) mEq/L Potassium 4.0 (3.5-5.1) mEq/L Chloride 99 (98-107) mEq/L Carbon Dioxide 24 (23-29) mEq/L BUN 39 H (8-23) mg/dL Creatinine 1.21 (0.70-1.30) mg/dL Glucose 313 H (70-105) mg/dL Calcium 8.6 (8.6-10.3) mg/dL Adrenal panel 09/05/17 Range/Units 05:39 Sodium 132 L (136-145) mEq/L Potassium 4.0 (3.5-5.1) mEq/L Chloride 99 (98-107) mEq/L Carbon Dioxide 24 (23-29) mEq/L BUN 39 H (8-23) mg/dL Creatinine 1.21 (0.70-1.30) mg/dL Glucose 313 H (70-105) mg/dL Calcium 8.6 (8.6-10.3) mg/dL All other labs normal. - Imaging CT scan - abdomen: report reviewed CT scan - pelvis: report reviewed Additional studies: Chest X-Ray 09/04/17 20:29 IMPRESSION: No acute process. D/ / Michael Cabrales MD / Michael Cabrales MD Interpreting Provider: Michael Cabrales MD Abdomen/Pelvis CT 09/04/17 22:45 IMPRESSION: 1. There is extensive fat stranding within the right upper quadrant centered at the gallbladder. This is most compatible with acute calculus cholecystitis. 2. There is also evidence of mural thickening involving the 2nd and 3rd portions of duodenum, but that is probably reactive. D/ / Mike Al MD / Mike Al MD Interpreting Provider: Mike Al MD Gallbladder Ultrasound 09/05/17 07:30 IMPRESSION: 1. Cholelithiasis, equivocal for acute cholecystitis. Gallbladder wall thickness at the upper limits of normal; however, sonographic Garcia's sign was absent during the examination. Correlation with recent CT shows inflammation of the pericholecystic fat on CT suggestive of cholecystitis. 2. Mild nodularity of the liver contour. Please correlate with clinical history of cirrhosis. 3. No evidence of intra or extrahepatic duct dilation. D/ / 09/05/2017 08:42:55 Mario Ryan MD / sherice Interpreting Provider: Mario Ryan MD Consult Discharge Plan - Plan Referrals: Sobeida Dasilva CNP [Primary Care Provider] - 09/16/17 3:00 pm - Attending Attestation For this encounter, I have reviewed the [employer] or PA documentation, treatment plan, and medical decision making; and I have had face to face time with this patient.
--- NOTE | 2017-09-05 16:06 | Event Note ---
Date of Encounter: 09/05/17 Time of Encounter: 11:00 Patient did receive IV fluids overnight as well as antibiotics, and afebrile tachycardia has improved a.m. labs did reveal a drop in white count from 22-17. He does not have any abdominal complaints no pain on palpation and examination no nausea vomiting requesting to eat. CT scan does show some fat stranding around the gallbladder concerning for cholecystitis, gallbladder ultrasound also consistent with acute cholecystitis. Surgery did see the patient-does not feel that gallbladder is the source of the patient's leukocytosis and does not feel that a cholecystectomy or drainage tube is necessary at this time. Patient is able to eat. We will continue with IV fluids as well as antibiotics. Urinalysis does not reveal UTI at this time chest x-rays clear We will obtain stool samples, as well as respiratory panel.
[2017-09-06 00:19] LABS: Adenovirus Not Detected (Not Detect); Bordetella Pertussis Not Detected (Not Detect); Chlamydophila pneumoniae Not Detected (Not Detect); Coronavirus 229E Not Detected (Not Detect); Coronavirus HKU1 Not Detected (Not Detect); Coronavirus NL63 Not Detected (Not Detect); Coronavirus OC43 Not Detected (Not Detect); Human Metapneumovirus Not Detected (Not Detect); Human Rhinovirus/Enterovirus ***DETECTED*** (Not Detect); Influenza A Subtype 2009 H1 Not Detected (Not Detect); Influenza A Untypeable Not Detected (Not Detect); Influenza B Not Detected (Not Detect); Mycoplasma pneumoniae Not Detected (Not Detect); Parainfluenza Virus 1 Not Detected (Not Detect); Parainfluenza Virus 2 Not Detected (Not Detect); Parainfluenza Virus 3 Not Detected (Not Detect); Parainfluenza Virus 4 Not Detected (Not Detect); Respiratory Syncytial Virus Not Detected (Not Detect)
[2017-09-06] MEDS: Insulin LISPRO 300 UNITS/3 ML VIAL SQ SCH ×4 (00:46→17:38)
[2017-09-06 09:23] LABS: Basophils # 0.1 K/mcL (0.0-0.2); Basophils % 0.4 %; Eosinophils # 0.6 K/mcL (0.0-0.6); Eosinophils % 4.3 %; Hematocrit 31.3 % (37.5-50.1); Hemoglobin 10.1 g/dL (12.9-16.9); Immature Granulocytes % 1.4 % (0-4); Lymphocytes # 1.4 K/mcL (0.6-4.6); Lymphocytes % 10.4 %; Mean Corpuscular HGB Conc 32.3 g/dL (31.6-35.5); Mean Corpuscular Hemoglobin 30.9 pg (28.0-33.3); Mean Corpuscular Volume 95.7 fL (83.0-100.0); Mean Platelet Volume 11.2 fL (9.4-12.4); Monocytes # 1.1 K/mcL (0.0-1.3); Neutrophils # 9.9 K/mcL (1.6-8.9); Platelet Count 291 K/mcL (140-400); Red Blood Count 3.27 M/mcL (4.19-5.50); Red Cell Distribution Width 11.9 % (11.5-14.5); Segmented Neutrophils % 75.5 %
[2017-09-06 09:43] LABS: BUN/Creatinine Ratio 22 (6-26); Blood Urea Nitrogen 27 mg/dL (8-23); Calcium 8.5 mg/dL (8.6-10.3); Carbon Dioxide 24 mEq/L (23-29); Chloride 103 mEq/L (98-107); Glucose 205 mg/dL (70-105); Osmolality,Calculated 295 (280-300); Potassium 3.5 mEq/L (3.5-5.1); Sodium 137 mEq/L (136-145); eGFR For African Americans > 60 (> 60); eGFR For Non-African Americans 57 (> 60)
--- NOTE | 2017-09-06 12:53 | General Surgery Progress Note ---
Date of Encounter: 09/06/17 Time of Encounter: 12:51 - Assessment and Plan (1) Cholelithiasis Current Visit: Yes Status: Acute patient tolerating diet; no abdominal pain on exam; no surgical intervention needed cont to monitor; okay to d/c per primary from surgical standpoint; Qualifiers: Cholelithiasis location: gallbladder Cholecystitis presence: without cholecystitis Biliary obstruction: without biliary obstruction Qualified Code(s): K80.20 - Calculus of gallbladder without cholecystitis without obstruction Subjective Patient reports: no new complaints, feels better, tolerating liquids well, tolerating a regular diet, afebrile Objective Vital Signs - Last 8 Hours Temp Pulse Resp BP Pulse Ox 09/06/17 12:10 98.2 F 96 18 130/73 95 09/06/17 07:50 98.4 F 71 18 113/63 98 Intake and Output 09/05/17 09/06/17 09/06/17 23:59 07:59 15:59 Intake Total 200 / 200 100 / 100 Output Total 350 / 350 200 / 200 Balance -150 / -150 -200 / -200 100 / 100 Intake: IV Fluids 200 / 200 100 / 100 Zosyn 3.375 GM In 0.9 % Sodium 200 / 200 100 / 100 Chloride 100 ML @ 25 mls/hr IVPB Q8H [facility] Rx#:[id number] Output: Urine 350 / 350 200 / 200 Other: Weight 88.496 kg Blood Glucose* 296 156 345 Patient Weight 09/06/17 23:59 Weight 88.496 kg - General physical appearance no distress - ENT normocephalic - Respiratory normal expansion, normal respiratory effort - Cardiovascular Cardiovascular exam: Present: RRR - Abdomen Abdomen: Present: soft, non tender - Neurologic CN 2-12 grossly intact - Psychiatric oriented to time, oriented to person, oriented to place - Labs 09/06/17 08:57 09/06/17 08:57 Diabetes panel 09/06/17 Range/Units 08:57 Sodium 137 (136-145) mEq/L Potassium 3.5 (3.5-5.1) mEq/L Chloride 103 (98-107) mEq/L Carbon Dioxide 24 (23-29) mEq/L BUN 27 H (8-23) mg/dL Creatinine 1.23 (0.70-1.30) mg/dL Glucose 205 H (70-105) mg/dL Calcium 8.5 L (8.6-10.3) mg/dL Calcium panel 09/06/17 Range/Units 08:57 Calcium 8.5 L (8.6-10.3) mg/dL Pituitary panel 09/06/17 Range/Units 08:57 Sodium 137 (136-145) mEq/L Potassium 3.5 (3.5-5.1) mEq/L Chloride 103 (98-107) mEq/L Carbon Dioxide 24 (23-29) mEq/L BUN 27 H (8-23) mg/dL Creatinine 1.23 (0.70-1.30) mg/dL Glucose 205 H (70-105) mg/dL Calcium 8.5 L (8.6-10.3) mg/dL Adrenal panel 09/06/17 Range/Units 08:57 Sodium 137 (136-145) mEq/L Potassium 3.5 (3.5-5.1) mEq/L Chloride 103 (98-107) mEq/L Carbon Dioxide 24 (23-29) mEq/L BUN 27 H (8-23) mg/dL Creatinine 1.23 (0.70-1.30) mg/dL Glucose 205 H (70-105) mg/dL Calcium 8.5 L (8.6-10.3) mg/dL - VTE Documentation of Mechanical Device: Intermittent pneumatic compression device Consult Discharge Plan - Plan Referrals: Sobeida Dasilva CNP [Primary Care Provider] - 09/16/17 3:00 pm
[2017-09-06 16:13] VITALS: BP 116/62
--- NOTE | 2017-09-06 17:58 | Discharge Summary ---
Date of Encounter: 09/06/17 Time of Encounter: 17:54 - Discharge Diagnosis (1) Cholelithiasis Priority: Primary Status: Acute Comments: 1 patient denies any abdominal pain or nausea vomiting no pain on palpation of abdomen. CT scan did show some fat stranding around the gallbladder concerning for cholecystitis. He was seen by surgery who felt that her bladder was not the source of patient's-sepsis did not require any surgical intervention for drainage to. Patient was initiated on regular diet and has been tolerating well -new fevers and white count trending down.-Surgery okay to discharge Qualifiers: Cholelithiasis location: gallbladder Cholecystitis presence: without cholecystitis Biliary obstruction: without biliary obstruction Qualified Code(s): K80.20 - Calculus of gallbladder without cholecystitis without obstruction (2) Generalized weakness Priority: Primary Status: Acute Comments: 1 H and presented with weakness and elevated blood sugar he did have a mechanical fall home. He also had been experiencing 3-4 days of nonproductive cough nose. He denied any abdominal pain nausea did have some vomiting no diarrhea. Respiratory panel was completed was negative for influenza positive for entero/Rhino virus. Neck this has been contributing to patient's weakness- he was given IV fluids as well as Zosyn and has improved. He states he has been ambulating without difficulty tolerating oral intake.-We will discharged on Augmentin-since he has been experiencing some nonproductive cough for possible bronchitis will have him follow-up with primary care physician (3) Sepsis Priority: Primary Status: Acute Comments: 1 patient presented with tachycardia and elevated white count was given IV fluids and Zosyn -he has returned back to baseline. IT WAS RELATED TO CHOLECYSTITIS WAS SEEN BY SURGERY DID NOT FEEL THAT WAS A SOURCE OF INFECTION. SUSPECT THIS MAY BE RELATED TO Entero/ RHINOVIRUS. Qualifiers: Sepsis type: Escherichia coli Qualified Code(s): A41.51 - Sepsis due to Escherichia coli [E. coli] (4) Diabetes Priority: Secondary Status: Chronic Comments: Elevated blood sugar 379-trending down. This likely related to infectious process We will resume his home medication Qualifiers: Diabetes mellitus type: type 2 Diabetes mellitus complication status: without complication Diabetes mellitus snf insulin use: without extermination inspector use Qualified Code(s): E11.9 - Type 2 diabetes mellitus without complications (5) HTN (hypertension) Priority: Secondary Status: Chronic Comments: We will continue home medications Qualifiers: Hypertension type: essential hypertension Qualified Code(s): I10 - Essential (primary) hypertension - Discharge Medications Prescriptions: Amoxicillin/Clavulanate [Augmentin] 500 mg PO BIDWM #6 tablet Home Medications: Metformin HCl [Glucophage] 1,000 mg PO BID 11/13/15 [History] Pioglitazone [Actos] 45 mg PO DAILY 11/13/15 [History] Ferrous Sulfate [Iron] 325 mg PO DAILY 03/08/16 [History] GlipiZIDE XL (24 HR) [Glucotrol XL] 10 mg PO BID 09/05/17 [History] Lisinopril [Zestril] 10 mg PO DAILY 09/05/17 [History] Multivit-Min/FA/Lycopen/Lutein [A Thru Z Select Multivit Tab] 1 tab PO DAILY [History] Pravastatin Sodium [Pravachol] 80 mg PO DAILY 09/05/17 [History] hydroCHLOROthiazide [Hydrochlorothiazide] 25 mg PO DAILY 09/05/17 [History] Amoxicillin/Clavulanate [Augmentin] 500 mg PO BIDWM #6 tablet 09/06/17 [Rx] Allergies/Adverse Reactions: 3 Allergy/AdvReac Type Severity Reaction Status Date / Time No Known Allergies Allergy Verified 11/12/15 21:17 Date of admission: 09/05/17 02:01 Primary care physician: Sobeida Dasilva CNP Consults: 09/05/17 02:09 Consult to Surgery [CONS] Routine Consulting Provider: Surgery [facility] Reason for Consult: acute cholecystitis Time Notified: 02:09 Call Completed: Yes Discharging clinician: Celestina Goncalves Anticipated date of discharge: 09/06/17 - Patient Status Disposition: Home, Self-Care Condition: Good Functional capacity at discharge: independent ambulation Overall status at discharge: patient is progressing back to baseline - Discharge Instructions Instructions: Diabetes Mellitus Type 2 in Adults (DC), Acute Cough (GEN) Follow Up With: Sobeida Dasilva CNP [Primary Care Provider] - 09/16/17 3:00 pm - Diet and Activity Activity: increase activity as tolerated Diet: diabetic diet Interval History: Patient presented to the ER with weakness and high blood sugars. He been experiencing runny nose and nonproductive cough over the previous week. He denies any abdominal pain nausea he has poor appetite-with vomiting, he T was concerning for cholecystitis he was seen by surgery did not feel this was the source of his infectionor surgical intervention at this time. Urinalysis was clean chest x-ray was clear breast reveals showed rhinovirus. He is significantly improved after receiving IV fluids and antibiotics. States he feels much better has been ambulating tolerating his meals. He has he was in a stable Hospital course: Mr. Chavarria is a 76 year old male past medical history hypertension diabetes polio at both leg weakness. He presented to the ER with weakness and hypotension he been experiencing runny nose and nonproductive cough over the past weeks. CT abdomen did not show cholecystitis he was seen by surgery who did not feel this was discussed with his infection and did not require any surgical intervention. Urinalysis was negative for UTI chest x-ray no acute process Respiratory panel did show entero/rhinovirus. He received IV fluids as well as Zosyn. His symptoms have improved white count returned to normal hemodynamically stable. He is eating and drinking no nausea vomiting in the waiting room without difficulty. He will be discharged home on Augmentin for any underlying bronchitis. I did review medications and follow-up appointments patient to verbalize understanding. - Time Spent with Patient Total time spent providing and/or coordinating discharge services: - Constitutional Vitals: Temp Pulse Resp BP Pulse Ox 98.2 F 76 18 116/62 98 09/06/17 16:10 09/06/17 16:10 09/06/17 16:10 09/06/17 16:10 09/06/17 16:10 General appearance: Present: A&O X 3, no acute distress, answers questions appropriately - Head Head exam: Present: atraumatic, normocephalic - Eye Eye exam: Present: PERRL, conjuntiva pink, sclera anicteric Pupils: Present: PERRL - Neck Neck exam general surgery: Present: supple, trachea midline. Absent: lymphadenopathy - Respiratory Respiratory exam: Present: CTAB. Absent: accessory muscle use, rales, rhonchi, wheezes - Cardiovascular Cardiovascular exam: Present: RRR, +S1, +S2. Absent: diastolic murmur, gallop, rubs, systolic murmur - GI/Abdominal GI/Abdominal exam: Present: normal bowel sounds, soft, no peritoneal signs. Absent: distended, tenderness - Extremities Exam Extremities exam: Present: warm, radial pulses palpable and symmetrical. Absent : calf tenderness, cyanotic, pedal edema - Neurological Exam Neurological exam: Present: CN II-XII intact, oriented X3, no focal deficits. Absent: pronater drift, facial droop, speech deficit - Skin Skin exam: Present: dry, intact - VTE Documentation of Mechanical Device: Intermittent pneumatic compression device
--- NOTE | 2017-09-07 17:35 | Electrocardiograph Report ---
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
== END 2017-09-06 21:46 | disposition home or self-care (01) | DRG 872 ==
LOC: EMEROO 17:38 → 3BNU 17:38
PROVIDERS: ADMIT Internal Medicine; ATTEND Registered Nurse

== ENCOUNTER 2018-05-11 19:35 | Inpatient (IN) ==
--- NOTE | 2018-05-11 19:54 | Emergency Department Note ---
Disposition Clinical Impression: Hyperkalemia [id number]-[id number] kidney injury Qualifiers: Acute renal failure type: unspecified Chronic kidney disease stage: unspecified stage Qualified Code(s): N17.9 - Acute kidney failure, unspecified Leukocytosis Qualifiers: Leukocytosis type: unspecified Qualified Code(s): D72.829 - Elevated white blood cell count, unspecified Disposition: Admitted As Inpatient Condition: Fair Referrals: Sobeida Dasilva CNP [Primary Care Provider] - Forms: ED Satisfaction Letter Time of Disposition: 21:38 General Adult HPI - General Chief complaint: ED Weakness Stated complaint: weakness Time Seen by Provider: 05/11/18 19:41 Source: patient, EMS Mode of arrival: EMS Limitations: no limitations Nursing Notes Reviewed: Yes Vital Signs Reviewed: Yes - History of Present Illness HPI Narrative: 77-year-old male with a history of hypertension, diabetes, chronic kidney disease presents for evaluation of generalized weakness. Patient states he has not felt well over the past couple days. Patient reports nausea and vomiting t hat started today as well as diarrhea. Patient denies any abdominal pain. Patient denies any fevers. No cough chest pain or shortness of breath. Patient states that he has had decreased by mouth intake earlier today. Patient states that they recently changed his diabetic medications 2 weeks ago. Denies any other changes in medications. Denies any trauma or falls. Pain Scale: 0 - Related Data Home Medications Medication Instructions Recorded Confirmed Metformin HCl [Glucophage] 1,000 mg PO BID 11/13/15 05/11/18 Pioglitazone [Actos] 45 mg PO DAILY 11/13/15 05/11/18 Ferrous Sulfate [Iron] 325 mg PO DAILY 03/08/16 05/11/18 GlipiZIDE XL (24 HR) [Glucotrol XL] 10 mg PO BID 09/05/17 05/11/18 Lisinopril [Zestril] 10 mg PO DAILY 09/05/17 05/11/18 Multivit-Min/FA/Lycopen/Lutein [A 1 tab PO DAILY 09/05/17 05/11/18 Thru Z Select Multivit Tab] Pravastatin Sodium [Pravachol] 80 mg PO DAILY 09/05/17 05/11/18 hydroCHLOROthiazide 12.5 mg PO DAILY 09/05/17 05/11/18 [Hydrochlorothiazide] Allergies Allergy/AdvReac Type Severity Reaction Status Date / Time No Known Allergies Allergy Verified 05/11/18 19:41 All systems ED: reviewed and negative except as stated. Constitutional: Denies: fever Cardiovascular: Denies: chest pain Respiratory: Denies: cough, dyspnea Gastrointestinal: Reports: nausea, vomiting, diarrhea. Denies: abdominal pain Past Medical History - Past Medical History Source: patient Medical history: Reports: arthritis, diabetes, hyperlipidemia, hypertension, renal disease, other Surgical history: Reports: cataract, orthopedic, other (Right hip surgery) Psychiatric history: Reports: no psych history - Social History Smoking Status: Former smoker Smokeless Tobacco Status: No Alcohol use: Reports: none Drug use: Reports: none Physical Exam - General Limitations: no limitations General appearance: alert, in no apparent distress - Head Head exam: atraumatic, normocephalic, normal inspection - Eye Eye exam: Present: normal appearance, PERRL, EOMI, miosis - ENT ENT exam: normal exam, normal oropharynx, mucous membranes moist - Neck Neck exam: Present: normal inspection - Chest Chest inspection: Present: normal inspection - Respiratory Respiratory exam: Present: normal lung sounds bilaterally. Absent: respiratory distress - Cardiovascular Cardiovascular exam: Present: regular rate, normal rhythm. Absent: systolic murmur - Abdominal Exam Abdominal exam: Present: soft, Non-Tender. Absent: guarding, rebound - Extremities Exam Extremities exam: Present: normal inspection. Absent: pedal edema - Back Exam Back exam: Present: normal inspection - Neurological Exam Neurological exam: Present: alert, oriented X3 - Expanded Neurological Exam Patient oriented to: Present: person, place, time Speech: Present: fluid speech Cranial nerves: EOM function (II, III, IV, ): Normal, facial sensation (V): Normal, facial palsy (VII): Normal, spinal accessory function (XI): Normal, tongue deviation (XII): Normal Motor strength - LUE: 5/5 Motor strength - RUE: 5/5 Motor strength - LLE: 5/5 Motor strength - RLE: 5/5 Coma Scale Eye Opening: Spontaneous Coma Scale Motor Response: Obeys Commands Coma Scale Verbal Response: Oriented Coma Scale Total: 15 - Skin Skin exam: Present: warm, dry, intact, normal color Course Course Narrative: Patient seen and examined. Patient's complaining of generalized weakness as well as GI symptoms with nausea and vomiting and diarrhea. Patient does have history of chronic kidney disease diabetes as well as hypertension. Patient with basic cardiopulmonary screening evaluation with EKG, chest x-ray troponin. Patient also get electrolyte evaluation and urinalysis. Disposition pending. - Reevaluation(s) Reevaluation #1: Patient seen and examined. Patient's updated on plan of care. Patient will be admitted for acute on chronic kidney disease. Time: 21:29 - Consultations Consultation #1: Discussed the case with Dr. Calderon who will evaluate the patient tomorrow. Time: 21:21 Vital Signs Temperature 97.7 F 05/11/18 19:37 Pulse Rate 90 05/11/18 19:37 Respiratory Rate 16 05/11/18 19:37 Blood Pressure 153/65 05/11/18 19:37 O2 Sat by Pulse Oximetry 99 05/11/18 19:37 Temperature 97.7 F 05/11/18 19:37 Pulse Rate 90 05/11/18 19:37 Respiratory Rate 16 05/11/18 19:37 Blood Pressure 153/65 05/11/18 19:37 O2 Sat by Pulse Oximetry 99 05/11/18 19:37 Medical Decision Making - [facility] Narrative Medical decision making narrative: Patient presents for concerns of generalized weakness and nausea vomiting and some diarrhea. Patient's abdominal exam is unremarkable. Based on the patient's physical exam the patient does not warrant any CT imaging of his abdomen. Patient's ED course is consistent with acute on chronic kidney disease . Discussed the case with Dr. Maloney get her will evaluate the patient tomorrow. Patient will have a full catheter placed her on any postobstructive uropathy. Patient is also given gradual fluid bolus with 500 mL of 0.9. Patient also be placed on maintenance. Patient's symptoms were controlled with nausea medications. Patient does not warrant immediate for emergent dialysis. Etiology of acute kidney injury is unknown the patient is describing GI losses notes likely prerenal. UA and urine electrodes are pending at this time. Patient does have a leukocytosis which is nonspecific. Patient's chest x-ray was obtained. Patient will get a urine culture. This point patient was not started on antibiotics as there is no clear source. Possibly volume contraction as well as the demargination with vomiting. - Lab Data Lab results reviewed: Yes I reviewed the patient's lab results. Result diagrams: 05/11/18 20:20 05/11/18 20:20 Lab Results 05/11/18 05/11/18 05/11/18 Range/Units 20:20 20:20 20:20 WBC 18.8 H (4.3-11.1) K/mcL RBC 3.63 L (4.19-5.50) M/mcL Hgb 11.7 L (12.9-16.9) g/dL Hct 33.6 L (37.5-50.1) % MCV 92.6 (83.0-100.0) fL MCH 32.2 (28.0-33.3) pg MCHC 34.8 (31.6-35.5) g/dL RDW 11.8 (11.5-14.5) % Plt Count 370 (140-400) K/mcL MPV 11.3 (9.4-12.4) fL Immature Gran % 0.5 (0-4) % Seg Neutrophils % 87.3 % Lymphocytes % 4.0 % Monocytes % 8.0 % Eosinophils % 0.0 % Basophils % 0.2 % Neutrophils # 16.4 H (1.6-8.9) K/mcL Lymphocytes # 0.8 (0.6-4.6) K/mcL Monocytes # 1.5 H (0.0-1.3) K/mcL Eosinophils # 0.0 (0.0-0.6) K/mcL Basophils # 0.0 (0.0-0.2) K/mcL Sodium 131 L (136-145) mEq/L Potassium 5.4 H (3.5-5.1) mEq/L Chloride 87 L (98-107) mEq/L Carbon Dioxide 24 (23-29) mEq/L BUN 98 H (8-23) mg/dL Creatinine 8.13 H (0.70-1.30) mg/dL Est GFR ( Amer) 8 L (> 60) Est GFR (Non-Af Amer) 6 L (> 60) BUN/Creatinine Ratio 12 (6-26) Glucose 251 H (70-105) mg/dL Calculated Osmolality 311 H (280-300) Lactic Acid 2.0 (0.5-2.2) mmol/L Calcium 10.7 H (8.6-10.3) mg/dL Total Bilirubin 0.3 (0.3-1.0) mg/dL AST 18 (13-39) Units/L ALT 14 (7-52) Units/L Alkaline Phosphatase 62 (34-104) Units/L Troponin I 0.03 (< 0.04) ng/mL Serum Total Protein 7.1 (6.4-8.9) g/dL Albumin 3.9 (3.5-5.7) g/dL Globulin 3.2 (2.4-3.5) g/dL Albumin/Globulin Ratio 1.2 (1.1-2.2) - Radiology Data Radiology results reviewed: Yes I reviewed the patient's radiology results. - EKG Data EKG #1 EKG attestation: Yes I reviewed and interpreted this EKG. EKG shows normal: sinus rhythm Rate: normal Rhythm: NSR [place]/QRS: left axis deviation Q waves: aVR Interpretation: no acute changes, nonspecific ST-T wave changes S.B.A.R. - S.B.A.RMateo Situation: Demographics Background: Presenting Complaint Assessment: Vital Signs, Course and respsone to treatment, Patient/Family Expectation Recommendation: Barrier(s) to disposition, Recommendation based on pending studies, treatments, or consults S.B.A.RMateo Report Given to: Dr. Oreilly SMateoBMateoAPaul Repor Time: 21:37 Attestation Statement - Attestation Attestation: I examined this patient and my medical decision-making was reviewed with the Resident Physician. I agree with the documented findings, disposition and treatment plan as described except to the extent set forth below. Findings consistent with acute renal failure. Will need admission for nephrology consultation and further management.
[2018-05-11] MEDS ORDERED: 0.9 % Sodium Chloride 500 ML IVC ONE (20:08)
[2018-05-11] MEDS ORDERED: Ondansetron 4 MG/2 ML VIAL IVP ONE (20:08)
[2018-05-11 20:34] LABS: Basophils % 0.2 %; Hematocrit 33.6 % (37.5-50.1); Hemoglobin 11.7 g/dL (12.9-16.9); Immature Granulocytes % 0.5 % (0-4); Lymphocytes # 0.8 K/mcL (0.6-4.6); Mean Corpuscular HGB Conc 34.8 g/dL (31.6-35.5); Mean Corpuscular Hemoglobin 32.2 pg (28.0-33.3); Mean Corpuscular Volume 92.6 fL (83.0-100.0); Mean Platelet Volume 11.3 fL (9.4-12.4); Monocytes # 1.5 K/mcL (0.0-1.3); Neutrophils # 16.4 K/mcL (1.6-8.9); Platelet Count 370 K/mcL (140-400); Red Blood Count 3.63 M/mcL (4.19-5.50); Red Cell Distribution Width 11.8 % (11.5-14.5); Segmented Neutrophils % 87.3 %
[2018-05-11 20:55] LABS: Albumin 3.9 g/dL (3.5-5.7); Albumin/Globulin Ratio 1.2 (1.1-2.2); Bilirubin,Total 0.3 mg/dL (0.3-1.0); Calcium 10.7 mg/dL (8.6-10.3); Globulin 3.2 g/dL (2.4-3.5); Potassium 5.4 mEq/L (3.5-5.1); Total Protein 7.1 g/dL (6.4-8.9)
[2018-05-11 20:56] LABS: Troponin I 0.03 ng/mL (< 0.04)
[2018-05-11] MEDS ORDERED: 0.9 % Sodium Chloride 1,000 ML IVC SCH (21:30)
[2018-05-11 21:53] LABS: Sodium, Urine 24.2 mEq/L
[2018-05-11 21:54] LABS: Bilirubin,Urine Negative (Negative); Blood,Urine Moderate (Negative); Clarity,Urine Turbid (Clear); Color,Urine Yellow (Yellow); Glucose,Urine (UA) 100 mg/dL (Normal); Ketones,Urine 15 mg/dL (Negative); Leukocyte Esterase,Urine Moderate (Negative); Nitrite,Urine Negative (Negative); Protein,Urine 100 mg/dL (Neg-Trace); Specific Gravity,Urine 1.026 (1.010-1.025); Urobilinogen,Urine Normal (Normal)
[2018-05-11 22:10] LABS: Granular Casts,Urine Few per lpf (None Seen)
[2018-05-11 22:12] LABS: Amorphous Sediment,Urine Moderate (Few); RBC,Urine 0-3 per hpf (0-3)
[2018-05-11] MEDS ORDERED: Naloxone 0.4 MG/ML INJ IVP PRN (23:37)
[2018-05-11] MEDS ORDERED: Ondansetron 4 MG/2 ML VIAL IVP PRN (23:37)
[2018-05-11] MEDS ORDERED: D5% in Water 1,000 ML IVC PRN (23:42)
[2018-05-11] MEDS ORDERED: *HR* Dextrose 50 % in Water (Syg) 50 ML SYRINGE IVP PRN (23:42)
[2018-05-11] MEDS ORDERED: Dextrose Gel 15 GM/37.5 ML TUBE PO PRN ×2 (23:42)
--- NOTE | 2018-05-11 23:47 | Internal Med History&Physical ---
Date of Encounter: 05/11/18 Time of Encounter: 23:00 Internal Medicine - H&P: HPI Chief complaint: Acute on chronic kidney disease Admitted From: Emergency Dept Plans for Post Hospital Care: Home History of present illness: Mr. Chavarria is a 77 year old male Patient presented to the ER with complaints of feeling tired. He states that ever since his PCP placed him on a new diabetic medication (Trullicity) he has felt weak. Initially this was changed as his PCP was concerned about possible harm to his kidneys. He states that he has also had diarrhea with vomiting today, as well as a loss of appetite. He denies chest and abdominal pain, dysuria, but has had decreased urine output. He has a history of chronic kidney disease stage III. In the ER patient's CBC was within normal limits. His potassium was 5.4, BUN was 98 and creatinine was 8.13. Patient's blood sugar was 251. Urinalysis was negative for infection, chest x-ray was stable. Nephrology was called and recommended IV fluid bolus, with a maintenance rate there after. A coleman catheter was placed in case of post obstructive uropathy. Emergent dialysis was not required, and nephrology agreed to consult on the patient in the morning. Upon my assessment patient states that he feels much better, denies nausea. He was resting comfortably in the hospital bed upon my arrival. He has a history of polio, and has weakness in his lower legs, left worse than right. He requires a wheelchair to get around, but is able to use a walker when he uses the restroom. Past Med Surg Social Fam HX - Past Medical History Medical history: arthritis, diabetes, hyperlipidemia, hypertension, renal diseas e, other Additional medical history: polio, hyperlipidemia, cataract Psychiatric history: no psych history - Past Surgical History Surgical History: cataract, orthopedic, other Additional surgical history: repair of right femur status post fall - Social History Smoking Status: Former smoker Smokeless Tobacco Status: No Alcohol use: none Drug use: none Internal Medicine - H&P: Meds Metformin HCl [Glucophage] 1,000 mg PO DAILY 11/13/15 [History] Pioglitazone [Actos] 45 mg PO DAILY 11/13/15 [History] Ferrous Sulfate [Iron] 325 mg PO DAILY 03/08/16 [History] GlipiZIDE XL (24 HR) [Glucotrol XL] 10 mg PO BID 09/05/17 [History] Lisinopril [Zestril] 10 mg PO DAILY 09/05/17 [History] Multivit-Min/FA/Lycopen/Lutein [A Thru Z Select Multivit Tab] 1 tab PO DAILY 09/05/17 [History] Pravastatin Sodium [Pravachol] 80 mg PO DAILY 09/05/17 [History] hydroCHLOROthiazide [Hydrochlorothiazide] 12.5 mg PO DAILY 09/05/17 [History] Dulaglutide [Trulicity] 0.75 mg SQ QWEEK 05/11/18 [History] Linagliptin [Tradjenta] 5 mg PO DAILY 05/11/18 [History] amLODIPine [Norvasc] 5 mg PO DAILY 05/11/18 [History] Allergy/AdvReac Type Severity Reaction Status Date / Time No Known Allergies Allergy Verified 05/11/18 19:41 All Systems PM: A 10-system review of systems was performed and is negative for pertinent findings except as documented above in the HPI. - Constitutional Vitals: Temp Pulse Resp BP Pulse Ox 97.7 F 92 14 150/49 93 05/11/18 19:37 05/11/18 22:15 05/11/18 22:15 05/11/18 22:15 05/11/18 22:15 General appearance: Present: cooperative, A&O X 3, pleasant, no acute distress, answers questions appropriately Exam: As above - Head Head exam: Present: normal inspection - Eye Eye exam: Present: EOMI, normal appearance - Respiratory Respiratory exam: Present: CTAB. Absent: chest wall tenderness, rales, wheezes - Cardiovascular Cardiovascular exam: Present: RRR, systolic murmur. Absent: diastolic murmur Additional comments: Grade 2 systolic murmur - GI/Abdominal GI/Abdominal exam: Present: normal bowel sounds, soft. Absent: tenderness - Extremities Exam Extremities exam: Present: warm, radial pulses palpable and symmetrical. Absent: calf tenderness, pedal edema, tenderness - Back Exam Back exam: Absent: CVA tenderness (L), CVA tenderness (R), tenderness - Neurological Exam Neurological exam: Absent: facial droop, speech deficit Additional comments: Decreased strength in the lower extremities secondary to history of polio. Right leg weakness worse than left - Skin Skin exam: Present: dry, normal color, warm Internal Med - H&P Results - Labs CBC & Chem 7: 05/12/18 00:25 05/12/18 05:24 Labs: Short CBC 05/11/18 Range/Units 20:20 WBC 18.8 H (4.3-11.1) K/mcL Hgb 11.7 L (12.9-16.9) g/dL Hct 33.6 L (37.5-50.1) % Plt Count 370 (140-400) K/mcL Neutrophils # 16.4 H (1.6-8.9) K/mcL BMP 05/11/18 20:20 Sodium 131 L Potassium 5.4 H Chloride 87 L Carbon Dioxide 24 BUN 98 H Creatinine 8.13 H Glucose 251 H Calcium 10.7 H Cardiac Enzymes 05/11/18 Range/Units 20:20 Troponin I 0.03 (< 0.04) ng/mL Liver Function 05/11/18 Range/Units 20:20 Total Bilirubin 0.3 (0.3-1.0) mg/dL AST 18 (13-39) Units/L ALT 14 (7-52) Units/L Alkaline Phosphatase 62 (34-104) Units/L Albumin 3.9 (3.5-5.7) g/dL Urine 05/11/18 Range/Units 21:35 Urine Color Yellow (Yellow) Urine Clarity Turbid A (Clear) Urine pH 5.0 (5.0-8.0) pH Units Ur Specific [place] 1.026 H (1.010-1.025) Urine Protein 100 H (Neg-Trace) mg/dL Urine Glucose (UA) 100 H (Normal) mg/dL - Impressions ITS Impressions Chest X-Ray 05/11/18 20:07 IMPRESSION: Stable portable study. D/ / Lynne Urban Cha, MD / Lynne Urban Cha, MD Interpreting Provider: Lynne Urban Cha, MD - Assessment and plan (1) Beomf-zq-hiybzvs kidney injury Current Visit: Yes Status: Acute Assessment and plan: Nephrology consulted in the ER. Recommended gradual fluid bolus, and maintenance normal saline, initiated in the ER. Coleman catheter placed. Patient has low urine output, likely due to his apparent kidney disease. Will avoid large fluid boluses at this time until nephrology can see him. Monitor strict I&Os Follow up recommendations from nephrology Retroperitoneal ultrasound in AM Continue IV fluids Qualifiers: Acute renal failure type: unspecified Chronic kidney disease stage: unspecified stage Qualified Code(s): N17.9 - Acute kidney failure, unspecified; N18.9 - Chronic kidney disease, unspecified (2) Hyperkalemia Current Visit: Yes Status: Acute Assessment and plan: Slightly elevated at 5.4, likely secondary to kidney disease. Ordered BMP 4 hours after initial lab, there was some confusion with the orders, but repeat potassium improved to 4.9. Patient will be started on low dose insulin for glucose control Repeat labs in the morning. Nephrology consult (3) Leukocytosis Current Visit: Yes Status: Acute Assessment and plan: Could be secondary to viral gastritis, chest x-ray stable likely not pneumonia. Patient also has acute kidney injury, UA was negative for nitrites but had positive leukocytic esterase. No other obvious source Continue to monitor Vital signs are stable. Qualifiers: Leukocytosis type: unspecified Qualified Code(s): D72.829 - Elevated white blood cell count, unspecified (4) Diabetes Current Visit: No Status: Chronic Assessment and plan: Patient not insulin dependent. Elevated blood sugars in the ER at 251. Diabetes could contribute to renal disease. Hold home meds Low dose sliding scale insulin as needed Diabetic diet Monitor sugars with meals and at night. Qualifiers: Diabetes mellitus type: type 2 Diabetes mellitus veneer [place] insulin use: without jail use Diabetes mellitus complication status: without complication Qualified Code(s): E11.9 - Type 2 diabetes mellitus without complications (5) HTN (hypertension) Current Visit: No Status: Chronic Assessment and plan: Current blood pressures controlled. 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 Continue to monitor Nursing assistance with moving from bed. (8) DVT prophylaxis Current Visit: No Status: Acute Assessment and plan: Subcutaneous heparin - Time Spent With Patient Total time spent is greater than 50% in coordination of care (as documented) at patient's floor/unit and/or counseling patient: Greater than 35 minutes
[2018-05-12 00:36] LABS: Hematocrit 34.3 % (37.5-50.1); Hemoglobin 11.6 g/dL (12.9-16.9); Mean Corpuscular HGB Conc 33.8 g/dL (31.6-35.5); Mean Corpuscular Hemoglobin 31.8 pg (28.0-33.3); Mean Platelet Volume 11.4 fL (9.4-12.4); Platelet Count 328 K/mcL (140-400); Red Blood Count 3.65 M/mcL (4.19-5.50); Red Cell Distribution Width 11.7 % (11.5-14.5)
[2018-05-12 00:55] LABS: Calcium 10.6 mg/dL (8.6-10.3); Phosphorous 5.6 mg/dL (2.7-4.5); Potassium 4.9 mEq/L (3.5-5.1)
[2018-05-12] MEDS: *HR* Heparin 5,000 UNIT/ML VIAL SQ SCH ×2 (05:55→20:39)
[2018-05-12] MEDS ORDERED: 0.9 % Sodium Chloride 250 ML IVC PRN (06:47)
[2018-05-12 06:53] LABS: Calcium 10.8 mg/dL (8.6-10.3); Potassium 5.2 mEq/L (3.5-5.1)
[2018-05-12] MEDS ORDERED: 0.9 % Sodium Chloride 1,000 ML PRIME SCH (07:00)
[2018-05-12] MEDS: Insulin LISPRO 300 UNITS/3 ML VIAL SQ SCH ×4 (08:13→20:39)
[2018-05-12 08:16] LABS: Hepatitis B Surface Antigen Nonreactive (Nonreactive)
[2018-05-12] MEDS ORDERED: *HR* Heparin 5,000 UNIT/ML VIAL ONE (08:36)
--- NOTE | 2018-05-12 08:37 | IR Procedure Note ---
Date of procedure: 05/12/18 Consent Obtained: Written consent Timeout: Correct patient and procedure verified, Correct site verified, Time out performed, Skin prep completed Local anesthetic: Lidocaine 1% Indications: renal failure Procedure Performed: temp HDC Was there an dietetic assistant present: No Site/Technique: rt IJ to RA Results/Findings: adequate placement Estimated blood loss (cc): 0 Complications: None; Tolerated procedure well Post Procedure Treatment Plan: ok to dialyze Specimen: none
[2018-05-12] MEDS ORDERED: *HR* Heparin 10,000 UNIT/10 ML VIAL IV PRN (11:01)
--- NOTE | 2018-05-12 11:23 | Nephrology Consult Note ---
Date of Encounter: 05/12/18 Time of Encounter: 10:11 Assessment and Plan (1) Diihk-rx-gdbjqob kidney injury Current Visit: Yes Status: Acute Acute on chronic kidney injury with elevated creatinine and poor urine output, and may also have acute tubular necrosis as there is granular casts in the urinalysis. This is likely multifactorial; prerenal having decreased oral intake of fluids, vomiting, diarrhea for 2 days. He has post-renal obstruction symptoms such as nocturia, increased urinary frequency for many years. He takes nephrotoxic medications such as hydrochlorothiazide, lisinopril, metformin. He denied recent imaging with contrast. -creatinine 8.92, at admission 8.13 (baseline 1.1-1.4) -GFR 6 (baseline 50-57) -I/O:1000/250 (not documented but I personally examined the patient's Owusu catheter bag) -elevated calcium and phosphorus levels -urinalysis significant for granular casts, leukocyte esterase, WBC, protein -currently has a Owusu catheter in place Plan: -will take patient for hemodialysis today after hemodialysis catheter placed by interventional radiology -retroperitoneal ultrasound pending -continue Owusu catheter in place as he likely has a post renal obstruction -recommended to avoid nephrotoxic agents, renal dose medications -strict I&O -continue to monitor serum creatinine and GFR Qualifiers: Acute renal failure type: unspecified Chronic kidney disease stage: unspecified stage Qualified Code(s): N17.9 - Acute kidney failure, un specified; N18.9 - Chronic kidney disease, unspecified (2) Hyperkalemia Current Visit: Yes Status: Acute (3) Hypercalcemia Current Visit: Yes Status: Acute Hypercalcemia likely secondary to acute kidney injury calcium 10.8 -management as above (4) Serum phosphate elevated Current Visit: Yes Status: Acute Elevated serum phosphate level likely secondary to acute kidney injury phosphorus 5.6 -management as above History of Present Illness - Reason for Consult Consult date: 05/11/18 Acute Kidney Injury, Chronic Kidney Disease Requesting physician: Kiko Gentile - Chief Complaint Weakness - History of Present Illness 77-year-old male with past medical history of hypertension, diabetes, CKD, polio presented to [facility] complaining of generalized weakness and was found to have an acute on chronic kidney injury with creatinine of 8.13. Nephrology was consulted for management. Upon examination of the patient he reported that the past 2 days he has had progressive weakness and fatigue that was not getting better so he decided he needed to go to the hospital for evaluation. He reported decreased oral intake of fluids, nausea, vomiting, diarrhea. He noted decrease in urination for 2 days but no change in color. He admits that for many years he has had urinary frequency, nocturia every hour to every 3 hours-he goes to the bathroom. He has even fluid restricted himself for quite some time so that he does not have to go to the bathroom quite as often at night. He has been compliant with all of his home medications including nephrotoxic agents such as lisinopril, hydrochlorthiazide, and metformin. He has never required dialysis before. He said he was told by his PCP he had CKD. Denies having recent imaging with contrast. He denies fever, chills, dysuria, hematuria, chest pain, shortness of breath, abdominal pain, melena, hematochezia. He denies cigarette smoking, alcohol use, drug use. No family history of cancer. Past Med Surg Social Fam HX - Past Medical History Attestation: Yes The following information was validated with the patient. Source: patient Medical history: arthritis, diabetes, hyperlipidemia, hypertension, renal disease, other Additional medical history: polio, hyperlipidemia, cataract Psychiatric history: no psych history - Past Surgical History Surgical History: cataract, orthopedic, other Additional surgical history: repair of right femur status post fall - Social History Smoking Status: Former smoker Smokeless Tobacco Status: No Alcohol use: none Drug use: none Medications and Allergies Metformin HCl [Glucophage] 1,000 mg PO DAILY 11/13/15 [History] Pioglitazone [Actos] 45 mg PO DAILY 11/13/15 [History] Ferrous Sulfate [Iron] 325 mg PO DAILY 03/08/16 [History] GlipiZIDE XL (24 HR) [Glucotrol XL] 10 mg PO BID 09/05/17 [History] Lisinopril [Zestril] 10 mg PO DAILY 09/05/17 [History] Multivit-Min/FA/Lycopen/Lutein [A Thru Z Select Multivit Tab] 1 tab PO DAILY 09/05/17 [History] Pravastatin Sodium [Pravachol] 80 mg PO DAILY 09/05/17 [History] hydroCHLOROthiazide [Hydrochlorothiazide] 12.5 mg PO DAILY 09/05/17 [History] Dulaglutide [Trulicity] 0.75 mg SQ QWEEK 05/11/18 [History] Linagliptin [Tradjenta] 5 mg PO DAILY 05/11/18 [History] amLODIPine [Norvasc] 5 mg PO DAILY 05/11/18 [History] Allergy/AdvReac Type Severity Reaction Status Date / Time No Known Allergies Allergy Verified 05/11/18 19:41 Review of Systems Constitutional: anorexia, fatigue, weakness, no chills, no fever(s), no he adache(s) Nose, mouth and throat: no dysphagia, no odynophagia Cardiovascular: no chest pain, no edema, no lightheadedness, no palpitations Respiratory: no cough, no dyspnea, no wheezing Gastrointestinal: diarrhea, nausea, vomiting, no abdominal pain, no constipation, no hematochezia, no melena Genitourinary Male: nocturia, urinary frequency, no difficulty urinating, no dy suria, no hematuria, no urinary hesitancy Musculoskeletal: no muscle cramps Integumentary: no changing lesions, no lesions, no rash Neurological: no abnormal speech, no dizziness, no headache(s) Exam - Vital Signs Vital signs: Initial Vital Signs Temp Pulse Resp BP Pulse Ox 97.7 F 90 16 153/65 99 05/11/18 19:37 05/11/18 19:37 05/11/18 19:37 05/11/18 19:37 05/11/18 19:37 Vital Signs - Last 8 Hours Temp Pulse Resp BP Pulse Ox 05/12/18 07:16 99.1 F 107 16 127/61 91 05/12/18 03:45 98.2 F 102 17 135/63 95 Intake and Output 05/11/18 05/12/18 05/12/18 23:59 07:59 15:59 Intake Total 1000 / 1000 Balance 1000 / 1000 Intake: IV Fluids 1000 / 1000 0.9 % Sodium Chloride 1,000 ML 1000 / 1000 @ 100 mls/hr IVC .Q10H [facility] Rx#: [id number] Other: Weight 85.4 kg Blood Glucose* 169 218 - General Appearance General appearance: well-developed, well-nourished, appears started age EENT: mucous membranes dry Neck: no JVD, supple Cardiology: no murmurs, no rub, no gallops, no edema, regular rate, regular rhythm - Dialysis Access Dialysis Vascular Access: Venous Catheter (Right-sided perma cath) Gastrointestinal: normoactive bowel sounds, no tenderness, no guarding, no organomegaly Integumentary: no rash, warm and dry Neurologic: no focal deficit, alert and oriented x3 Musculoskeletal: no erythema, no cyanosis Psychiatric: mood/affect appropriate, cooperative Results - Lab Results 05/12/18 00:25 05/12/18 05:24 Most recent lab results Calcium 10.8 mg/dL (8.6-10.3) H 05/12/18 05:24 Phosphorus 5.6 mg/dL (2.7-4.5) H 05/12/18 00:25 Urine Creatinine 92 mg/dL 05/11/18 21:35 Urine Sodium 24.2 mEq/L 05/11/18 21:35 Consult Discharge Plan - Plan Referrals: Sobeida Dasilva CNP [Primary Care Provider] -
--- NOTE | 2018-05-12 12:33 | Internal Med Progress Note ---
Hospitalist Progress Note - Encounter Date of Encounter: 05/12/18 Time of Encounter: 10:00 - Subjective Interval History: Pt still feels weak. No other complaints. - Exam Vitals: Temp Pulse Resp BP Pulse Ox 97 F L 107 18 131/59 91 05/12/18 10:45 05/12/18 07:16 05/12/18 10:45 05/12/18 11:45 05/12/18 07:16 Exam: Pt is AAO x3, in NAD HEENT: NC/AT, PERRL Neck: supple, no JVD Lungs: CTA b/l Heart: S1S2, RRR, no murmurs. Abd: Soft, NT, CVAT negative B/L Ext: No pedal edema Neuro: No focal deficit. - Assessment and Plan (1) Xormb-yp-zrjfbos kidney injury Current Visit: Yes Status: Acute Assessment and Plan: Etiology in undetermined. - Nephro consult on case. Plan for HD today. - US retroperitoneal shows no hydronephrosis. - Cont strict I/O, avoid nephrotoxic medications. (2) Leukocytosis Current Visit: Yes Status: Acute Assessment and Plan: Etiology undetermined. No signs of infection at this point. Trend down now, possibly reactive. No indication for abx now. (3) DVT prophylaxis Current Visit: No Status: Acute Assessment and Plan: Heparin SC (4) Hypercalcemia Current Visit: Yes Status: Acute Assessment and Plan: Mild hypercalcemia with CKD and acute renal failure. Etiology is undetermined. - Will repeat calcium level and check PTHi in AM (5) Hyperkalemia Current Visit: Yes Status: Acute Assessment and Plan: Possibly due to JEFFREY, plan for HD today. (6) Serum phosphate elevated Current Visit: Yes Status: Acute Assessment and Plan: Possibly due to JEFFREY, nephro on case and plan for HD. - Summary of Assessment and Plan Summary of Assessment and Plan: Heparin SC - Time Spent with Patient Total time spent is greater than 50% in coordination of care (as documented) at patient's floor/unit and/or counseling patient: 25 - 35 minutes Plan of Care Discussed with: patient Internal Medicine: Result - Labs CBC & Chem 7: 05/12/18 00:25 05/12/18 05:24 Labs: Short CBC 05/11/18 05/12/18 Range/Units 20:20 00:25 WBC 18.8 H 16.0 H (4.3-11.1) K/mcL Hgb 11.7 L 11.6 L (12.9-16.9) g/dL Hct 33.6 L 34.3 L (37.5-50.1) % Plt Count 370 328 (140-400) K/mcL Neutrophils # 16.4 H (1.6-8.9) K/mcL BMP 05/11/18 05/12/18 05/12/18 20:20 00:25 05:24 Sodium 131 L 133 L 132 L Potassium 5.4 H 4.9 5.2 H Chloride 87 L 91 L 90 L Carbon Dioxide 24 26 24 BUN 98 H 97 H 98 H Creatinine 8.13 H 8.65 H 8.92 H Glucose 251 H 176 H 201 H Calcium 10.7 H 10.6 H 10.8 H Cardiac Enzymes 05/11/18 Range/Units 20:20 Troponin I 0.03 (< 0.04) ng/mL Liver Function 05/11/18 Range/Units 20:20 Total Bilirubin 0.3 (0.3-1.0) mg/dL AST 18 (13-39) Units/L ALT 14 (7-52) Units/L Alkaline Phosphatase 62 (34-104) Units/L Albumin 3.9 (3.5-5.7) g/dL Urine 05/11/18 Range/Units 21:35 Urine Color Yellow (Yellow) Urine Clarity Turbid A (Clear) Urine pH 5.0 (5.0-8.0) pH Units Ur Specific [place] 1.026 H (1.010-1.025) Urine Protein 100 H (Neg-Trace) mg/dL Urine Glucose (UA) 100 H (Normal) mg/dL - Impressions Impressions Chest X-Ray 05/11/18 20:07 IMPRESSION: Stable portable study. D/ / Lynne Urban Cha, MD / Lynne Urban Cha, MD Interpreting Provider: Lynne Urban Cha, MD Chest X-Ray 05/12/18 08:36 IMPRESSION: 1. Status post placement of right sided IJ central venous catheter with distal tip at location of SVC. 2. No pneumothorax. 3. No airspace opacity or evidence of pleural effusion. D/ / David Russo / David Russo Interpreting Provider: David Russo Retroperitoneum Ultrasound 05/12/18 10:00 IMPRESSION: 1. No hydronephrosis or evidence of shadowing renal calculus. 2. Simple cyst associated with the left kidney measures 2.2 cm. 3. Cholelithiasis. Clinical correlation recommended. D/ / David Russo / David Russo Interpreting Provider: David Russo Consult Discharge Plan - Plan Referrals: Sobeida Dasilva, SECURITIES ADVISER [Primary Care Provider] - (1) Izjpg-fs-nodrgwm kidney injury Qualifiers: Acute renal failure type: unspecified Chronic kidney disease stage: unspec ified stage Qualified Code(s): N17.9 - Acute kidney failure, unspecified; N18.9 - Chronic kidney disease, unspecified (2) Leukocytosis Qualifiers: Leukocytosis type: unspecified Qualified Code(s): D72.829 - Elevated white blood cell count, unspecified
[2018-05-13 04:25] LABS: Basophils % 0.3 %; Eosinophils # 0.1 K/mcL (0.0-0.6); Eosinophils % 0.4 %; Hematocrit 31.2 % (37.5-50.1); Hemoglobin 10.3 g/dL (12.9-16.9); Immature Granulocytes % 0.7 % (0-4); Lymphocytes # 1.8 K/mcL (0.6-4.6); Lymphocytes % 15.4 %; Mean Corpuscular Hemoglobin 31.9 pg (28.0-33.3); Mean Corpuscular Volume 96.6 fL (83.0-100.0); Mean Platelet Volume 11.1 fL (9.4-12.4); Monocytes # 1.1 K/mcL (0.0-1.3); Monocytes % 9.5 %; Neutrophils # 8.7 K/mcL (1.6-8.9); Platelet Count 301 K/mcL (140-400); Red Blood Count 3.23 M/mcL (4.19-5.50); Red Cell Distribution Width 11.8 % (11.5-14.5); Segmented Neutrophils % 73.7 %
[2018-05-13 04:45] LABS: Albumin 3.2 g/dL (3.5-5.7); Albumin/Globulin Ratio 1.1 (1.1-2.2); Bilirubin,Total 0.3 mg/dL (0.3-1.0); Calcium 9.3 mg/dL (8.6-10.3); Globulin 2.8 g/dL (2.4-3.5); Potassium 4.4 mEq/L (3.5-5.1)
[2018-05-13] MEDS: *HR* Heparin 5,000 UNIT/ML VIAL SQ SCH ×2 (05:32→18:27)
[2018-05-13] MEDS ORDERED: 0.9 % Sodium Chloride 250 ML IVC PRN (07:19)
[2018-05-13] MEDS ORDERED: 0.9 % Sodium Chloride 1,000 ML ONE (07:33)
[2018-05-13] MEDS ORDERED: *HR* Heparin 10,000 UNIT/10 ML VIAL IV PRN (07:34)
[2018-05-13] MEDS: Insulin LISPRO 300 UNITS/3 ML VIAL SQ SCH ×4 (08:38→21:49)
--- NOTE | 2018-05-13 10:09 | Nephrology Progress Note ---
Date of Encounter: 05/13/18 Time of Encounter: 10:08 - Assessment and Plan (1) Xrafq-hi-oezxyil kidney injury Current Visit: Yes Status: Acute Acute on chronic kidney injury with elevated creatinine and poor urine output, and may also have acute tubular necrosis as there is granular casts in the urinalysis. This is likely multifactorial; prerenal having decreased oral intake of fluids, vomiting, diarrhea for 2 days. He has post-renal obstruction symptoms such as nocturia, increased urinary frequency for many years. He takes nephrotoxic medications such as hydrochlorothiazide, lisinopril, metformin. He denied recent imaging with contrast. -creatinine 6.88, at admission 8.13 (baseline 1.1-1.4) -GFR 8 (baseline 50-57) -I/O:1000/850 appropriate urine output -elevated calcium and phosphorus levels -urinalysis significant for granular casts, leukocyte esterase, WBC, protein -retroperitoneal ultrasound demonstrated no hydronephrosis, left simple cyst 2.2 cm. Right kidney atrophy. Plan: -patient has appropriate urine output and serum creatinine has been lowered by dialysis. Post renal obstruction has been ruled out via retroperitoneal ultr asound demonstrating no hydronephrosis. However there is right kidney atrophy with differential including renal artery stenosis, infection. The etiology for acute on chronic kidney injury is likely both prerenal and acute tubular necrosis. -will take patient for hemodialysis today -continue Owusu catheter in place for strict I&O -recommended to avoid nephrotoxic agents, renal dose medications -continue to monitor serum creatinine and GFR Qualifiers: Acute renal failure type: unspecified Chronic kidney disease stage: unspecified stage Qualified Code(s): N17.9 - Acute kidney failure, unspecified; N18.9 - Chronic kidney disease, unspecified (2) Hyperkalemia Current Visit: Yes Status: Acute Hyperkalemia at admission potassium 5.4. Secondary to acute kidney injury. -Resolved as potassium is now within normal limits since receiving hemodialysis (3) Anemia Current Visit: Yes Status: Acute Qualifiers: Qualified Code(s): D64.9 - Anemia, unspecified (4) Hypercalcemia Current Visit: Yes Status: Acute Hypercalcemia likely secondary to acute kidney injury -resolved, calcium within normal limits since receiving dialysis (5) Serum phosphate elevated Current Visit: Yes Status: Acute Elevated serum phosphate level likely secondary to acute kidney injury phosphorus 5.6 -Will recheck phosphorus tomorrow Subjective Principal diagnosis: Acute on chronic kidney injury Objective - Vital Signs Vital signs: Vital Signs Temp Pulse Resp BP Pulse Ox 05/13/18 07:11 98.9 F 89 17 124/56 90 05/13/18 04:30 98.4 F 88 17 126/57 93 05/12/18 21:55 98.7 F 85 17 127/61 93 05/12/18 20:05 98.5 F 83 17 114/56 96 05/12/18 15:50 98.6 F 87 15 97/56 90 05/12/18 13:00 97.5 F L 18 111/50 05/12/18 12:45 102/50 05/12/18 12:30 97/56 05/12/18 12:15 111/54 05/12/18 12:00 114/54 05/12/18 11:45 131/59 05/12/18 11:30 125/59 05/12/18 11:15 123/63 05/12/18 11:00 131/59 05/12/18 10:45 97 F L 18 138/60 Intake and Output 05/12/18 05/13/18 05/13/18 23:59 07:59 15:59 Intake Total 400 / 400 Output Total 250 / 250 Balance 150 / 150 Intake: Free Water 400 / 400 Output: Catheter 250 / 250 Other: Weight 85.5 kg Blood Glucose* 133 161 - General Appearance General appearance: Present: well-developed, well-nourished, appears started age EENT: Present: mucous membranes moist Neck: Present: no JVD, supple Respiratory: Present: clear Cardiology: Present: no edema, regular rate, regular rhythm Dialysis Vascular Access: Venous Catheter (Temporary hemodialysis catheter right side) Gastrointestinal: Present: normoactive bowel sounds, no tenderness, no guarding, no masses Integumentary: Present: no rash, warm and dry Neurologic: Present: alert and oriented x3, CN 3-12 intact Musculoskeletal: Present: no erythema, no cyanosis Psychiatric: Present: mood/affect appropriate, cooperative - Lab 05/13/18 04:14 05/13/18 04:14 Most recent lab results Calcium 9.3 mg/dL (8.6-10.3) 05/13/18 04:14 Phosphorus 5.6 mg/dL (2.7-4.5) H 05/12/18 00:25 Urine Creatinine 92 mg/dL 05/11/18 21:35 Urine Sodium 24.2 mEq/L 05/11/18 21:35 Consult Discharge Plan - Plan Referrals: Sobeida Dasilva, ARTURO [Primary Care Provider] -
--- NOTE | 2018-05-13 12:27 | Internal Med Progress Note ---
Hospitalist Progress Note - Encounter Date of Encounter: 05/13/18 Time of Encounter: 09:00 - Subjective Interval History: Pt still feels weak. Denies N/V/fever. No other complaints. - Exam Vitals: Temp Pulse Resp BP Pulse Ox 97.6 F 89 18 117/54 90 05/13/18 10:00 05/13/18 07:11 05/13/18 10:00 05/13/18 12:15 05/13/18 07:11 Exam: Pt is AAO x3, in NAD HEENT: NC/AT, PERRL Neck: supple, no JVD Lungs: CTA b/l Heart: S1S2, RRR, no murmurs. Abd: Soft, NT, CVAT negative B/L Ext: No pedal edema Neuro: No focal deficit. - Assessment and Plan (1) Iszfj-lv-aojsyka kidney injury Current Visit: Yes Status: Acute Assessment and Plan: Etiology in undetermined. - Nephro consult on case. HD started. - US retroperitoneal shows no hydronephrosis. - Cont strict I/O, avoid nephrotoxic medications. (2) Leukocytosis Current Visit: Yes Status: Acute Assessment and Plan: Etiology undetermined. No signs of infection at this point. Trend down now, possibly reactive. No indication for abx now. (3) DVT prophylaxis Current Visit: No Status: Acute Assessment and Plan: Heparin SC (4) Hypercalcemia Current Visit: Yes Status: Acute Assessment and Plan: Possibly due to JEFFREY, improved after HD. - Today Ca 9.3, Albumin 3.2, corrected calcium 9.94 (wnl), PTHi 18.4, appropriately inhibited by the relatively high Ca, not consider primary hyperparathyroidism. (5) Hyperkalemia Current Visit: Yes Status: Acute Assessment and Plan: Improved after HD (6) Serum phosphate elevated Current Visit: Yes Status: Acute Assessment and Plan: Possibly due to JEFFREY, nephro on case and started HD. DVT Prophylaxis: Heparin SC - Time Spent with Patient Total time spent is greater than 50% in coordination of care (as documented) at patient's floor/unit and/or counseling patient: 30 min 25 - 35 minutes Plan of Care Discussed with: patient Internal Medicine: Result - Labs CBC & Chem 7: 05/13/18 04:14 05/13/18 04:14 Labs: Short CBC 05/13/18 Range/Units 04:14 WBC 11.8 H (4.3-11.1) K/mcL Hgb 10.3 L (12.9-16.9) g/dL Hct 31.2 L (37.5-50.1) % Plt Count 301 (140-400) K/mcL Neutrophils # 8.7 (1.6-8.9) K/mcL BMP 05/13/18 04:14 Sodium 136 Potassium 4.4 Chloride 97 L Carbon Dioxide 28 BUN 54 H Creatinine 6.88 H Glucose 171 H Calcium 9.3 Liver Function 05/13/18 Range/Units 04:14 Total Bilirubin 0.3 (0.3-1.0) mg/dL AST 14 (13-39) Units/L ALT 12 (7-52) Units/L Alkaline Phosphatase 51 (34-104) Units/L Albumin 3.2 L (3.5-5.7) g/dL - Impressions Impressions Guidance Ultrasound 05/12/18 00:00 IMPRESSION: Successful ultrasound guided non-tunneled right IJ temporary hemodialysis catheter placement. D/ /12/2018 15:32:05 Ashley Wynn MD / tomas Interpreting Provider: Ashley Wynn MD Insertion Non-Tunneled Catheter 05/12/18 00:00 IMPRESSION: Successful ultrasound guided non-tunneled right IJ temporary hemodialysis catheter placement. D/ /12/2018 15:32:05 Ashley Wynn MD / tomas Interpreting Provider: Ashley Wynn MD Consult Discharge Plan - Plan Referrals: Sobeida Dasilva, ANCILLARY SERVICES MANAGER [Primary Care Provider] - (1) Jwcck-bw-zjcfkam kidney injury Qualifiers: Acute renal failure type: unspecified Chronic kidney disease stage: unspecified stage Qualified Code(s): N17.9 - Acute kidney failure, unspecified; N18.9 - Chronic kidney disease, unspecified (2) Leukocytosis Qualifiers: Leukocytosis type: unspecified Qualified Code(s): D72.829 - Elevated white blood cell count, unspecified
[2018-05-14 05:17] LABS: Basophils # 0.1 K/mcL (0.0-0.2); Basophils % 0.6 %; Eosinophils # 0.2 K/mcL (0.0-0.6); Eosinophils % 1.5 %; Hematocrit 30.6 % (37.5-50.1); Hemoglobin 10.2 g/dL (12.9-16.9); Immature Granulocytes % 1.1 % (0-4); Lymphocytes # 1.5 K/mcL (0.6-4.6); Lymphocytes % 15.2 %; Mean Corpuscular HGB Conc 33.3 g/dL (31.6-35.5); Mean Corpuscular Hemoglobin 31.9 pg (28.0-33.3); Mean Corpuscular Volume 95.6 fL (83.0-100.0); Mean Platelet Volume 10.9 fL (9.4-12.4); Monocytes # 1.1 K/mcL (0.0-1.3); Monocytes % 11.2 %; Platelet Count 268 K/mcL (140-400); Red Cell Distribution Width 11.7 % (11.5-14.5); Segmented Neutrophils % 70.4 %
[2018-05-14] MEDS: *HR* Heparin 5,000 UNIT/ML VIAL SQ SCH ×2 (05:28→17:24)
[2018-05-14 05:32] LABS: Calcium 8.6 mg/dL (8.6-10.3); Potassium 3.9 mEq/L (3.5-5.1)
[2018-05-14] MEDS ORDERED: 0.9 % Sodium Chloride 1,000 ML ONE (07:14)
[2018-05-14] MEDS ORDERED: 0.9 % Sodium Chloride 250 ML IVC PRN (07:49)
[2018-05-14] MEDS: Insulin LISPRO 300 UNITS/3 ML VIAL SQ SCH ×4 (07:55→21:54)
[2018-05-14] MEDS ORDERED: 0.9 % Sodium Chloride 2,000 ML ONE (08:09)
--- NOTE | 2018-05-14 10:46 | Nephrology Progress Note ---
Date of Encounter: 05/14/18 Time of Encounter: 08:42 - Assessment and Plan (1) Hvcqr-pe-qmtwpwx kidney injury Current Visit: Yes Status: Acute Acute on chronic kidney injury with elevated creatinine and poor urine output. Evidence of acute tubular necrosis as there is granular casts in the urinalysis. This is likely prerenal and intrinsic having decreased oral intake of fluids, vomiting, diarrhea for 2 days. He takes nephrotoxic medications such as hydrochlorothiazide, lisinopril, metformin. He denied recent imaging with contrast. -creatinine 4.78, at admission 8.13 (baseline 1.1-1.4) -GFR 8 (baseline 50-57) -I/O:1160/1000 appropriate urine output -normalized calcium and phosphorus levels -urinalysis significant for granular casts, leukocyte esterase, WBC, protein -retroperitoneal ultrasound demonstrated no hydronephrosis, left simple cyst 2.2 cm. Right kidney atrophy. Plan: -plan to take patient to hemodialysis today. This will be the last HD for total of 3 treatments. Tomorrow creatinine should be lowered due to HD however the next day will show if the patient will have renal recovery. -patient has appropriate urine output and serum creatinine continues to be lowered by dialysis. Post renal obstruction has been ruled out via retroperitoneal ultrasound demonstrating no hydronephrosis. However there is right kidney atrophy with differential including renal artery stenosis, infection. The etiology for acute on chronic kidney injury is likely both prerenal and acute tubular necrosis. -continue Owusu catheter in place for strict I&O -recommended to avoid nephrotoxic agents, renal dose medications -continue to monitor serum creatinine and GFR Qualifiers: Acute renal failure type: unspecified Chronic kidney disease stage: unspecified stage Qualified Code(s): N17.9 - Acute kidney failure, unspecified; N18.9 - Chronic kidney disease, unspecified (2) Hyperkalemia Current Visit: Yes Status: Acute Hyperkalemia at admission potassium 5.4. Secondary to acute kidney injury. -Resolved as potassium is now within normal limits since receiving hemodialysis (3) Anemia Current Visit: Yes Status: Acute Anemia likely secondary to iron deficiency as evidenced by iron panel study hemoglobin 10.2 (baseline 10-11) MCV normocytic iron 57, 22% saturation, transferrin 186, ferritin 98 -may benefit from iron supplementation Qualifiers: Qualified Code(s): D64.9 - Anemia, unspecified (4) Hypercalcemia Current Visit: Yes Status: Acute Hypercalcemia likely secondary to acute kidney injury -resolved, calcium within normal limits since receiving dialysis (5) Serum phosphate elevated Current Visit: Yes Status: Acute Elevated serum phosphate level likely secondary to acute kidney injury phosphorus 5.6 -Will recheck phosphorus tomorrow Subjective Principal diagnosis: Acute on chronic kidney injury Interval history: Patient seen and examined at bedside. He is alert and oriented times 3. He feels improved from admission and just about back at baseline. He denies fever, chills, nausea, vomiting, abdominal pain, shortness of breath, chest pain. He has no complaints at this time. Objective - Vital Signs Vital signs: Vital Signs Temp Pulse Resp BP Pulse Ox 05/14/18 06:59 99.5 F 105 19 107/58 94 05/14/18 03:39 99.5 F 67 16 130/67 91 05/13/18 23:18 99.1 F 78 16 131/65 97 05/13/18 19:18 98.3 F 91 16 116/62 96 05/13/18 15:53 99.3 F 88 17 115/61 94 05/13/18 12:45 97.9 F 18 134/55 05/13/18 12:30 116/56 05/13/18 12:15 117/54 05/13/18 12:00 118/55 05/13/18 11:45 115/56 05/13/18 11:30 112/56 05/13/18 11:15 118/55 05/13/18 11:00 119/54 05/13/18 10:45 120/55 05/13/18 10:30 119/55 05/13/18 10:15 119/56 05/13/18 10:00 97.6 F 18 108/50 Intake and Output 05/13/18 05/14/18 05/14/18 23:59 07:59 15:59 Intake Total 200 / 200 300 / 300 Output Total 800 / 800 Balance 200 / 200 -800 / -800 300 / 300 Intake: Oral 200 / 200 300 / 300 Output: Catheter 800 / 800 Other: Meal Breakfast Percent of Meal Consumed 90% Weight 85 kg Blood Glucose* 162 - General Appearance General appearance: Present: well-developed, well-nourished, appears started age EENT: Present: mucous membranes moist Neck: Present: no JVD, supple Respiratory: Present: clear Cardiology: Present: no rub, no gallops, no edema, regular rate, regular rhythm Dialysis Vascular Access: Venous Catheter (Right-sided permit cath) Gastrointestinal: Present: normoactive bowel sounds, no tenderness, no guarding Integumentary: Present: no rash, warm and dry Neurologic: Present: alert and oriented x3, CN 3-12 intact Musculoskeletal: Present: no erythema, no cyanosis, no clubbing Psychiatric: Present: mood/affect appropriate, cooperative - Lab 05/14/18 04:54 05/14/18 04:54 Most recent lab results Calcium 8.6 mg/dL (8.6-10.3) 05/14/18 04:54 Phosphorus 3.0 mg/dL (2.7-4.5) 05/14/18 04:54 Urine Creatinine 92 mg/dL 05/11/18 21:35 Urine Sodium 24.2 mEq/L 05/11/18 21:35 Consult Discharge Plan - Plan Referrals: Sobeida Dasilva THIRD LOADER [Primary Care Provider] -
--- NOTE | 2018-05-14 10:59 | Internal Med Progress Note ---
Hospitalist Progress Note - Encounter Date of Encounter: 05/14/18 Time of Encounter: 09:00 - Subjective Interval History: Pt feels better. Denies N/V/fever. No other complaints. Encourage pt to ambulate. - Exam Vitals: Temp Pulse Resp BP Pulse Ox 97.3 F L 105 18 139/65 94 05/14/18 09:10 05/14/18 06:59 05/14/18 09:10 05/14/18 10:10 05/14/18 06:59 Exam: Pt is AAO x3, in NAD HEENT: NC/AT, PERRL Neck: supple, no JVD Lungs: CTA b/l Heart: S1S2, RRR, no murmurs. Abd: Soft, NT, CVAT negative B/L Ext: No pedal edema Neuro: No focal deficit. - Assessment and Plan (1) Svvjo-xm-fclosyn kidney injury Current Visit: Yes Status: Acute Assessment and Plan: Etiology is undetermined. - Nephro consult on case. HD started. - US retroperitoneal shows no hydronephrosis. - Cont strict I/O, avoid nephrotoxic medications. (2) Leukocytosis Current Visit: Yes Status: Acute Assessment and Plan: Improved, WBC wnl today. (3) DVT prophylaxis Current Visit: No Status: Acute Assessment and Plan: Heparin SC (4) Hypercalcemia Current Visit: Yes Status: Acute Assessment and Plan: Possibly due to JEFFREY, improved after HD. (5) Hyperkalemia Current Visit: Yes Status: Acute Assessment and Plan: Improved after HD (6) Serum phosphate elevated Current Visit: Yes Status: Acute Assessment and Plan: Possibly due to JEFFREY, nephro on case and started HD. Improved after HD (7) Diabetes Current Visit: No Status: Chronic Assessment and Plan: Cont SSI. (8) HTN (hypertension) Current Visit: No Status: Chronic Assessment and Plan: Resume home meds amlodipine, hold HCTZ and lisinopril b/o JEFFREY. Closely monitor BP DVT Prophylaxis: Heparin SC - Time Spent with Patient Total time spent is greater than 50% in coordination of care (as documented) at patient's floor/unit and/or counseling patient: 30 min 25 - 35 minutes Plan of Care Discussed with: patient Internal Medicine: Result - Labs CBC & Chem 7: 05/14/18 04:54 10/25/18 04:54 Labs: Short CBC 05/14/18 Range/Units 04:54 WBC 10.0 (4.3-11.1) K/mcL Hgb 10.2 L (12.9-16.9) g/dL Hct 30.6 L (37.5-50.1) % Plt Count 268 (140-400) K/mcL Neutrophils # 7.0 (1.6-8.9) K/mcL BMP 05/14/18 04:54 Sodium 136 Potassium 3.9 Chloride 99 Carbon Dioxide 29 BUN 31 H Creatinine 4.78 H Glucose 200 H Calcium 8.6 Consult Discharge Plan - Plan Referrals: Sobeida Dasilva, POCKETED SPRING ASSEMBLER [Primary Care Provider] - (1) Cuhrm-fg-bmqurnd kidney injury Qualifiers: Acute renal failure type: unspecified Chronic kidney disease stage: unspecified stage Qualified Code(s): N17.9 - Acute kidney failure, unspecified; N18.9 - Chronic kidney disease, unspecified (2) Leukocytosis Qualifiers: Leukocytosis type: unspecified Qualified Code(s): D72.829 - Elevated white blood cell count, unspecified (7) Diabetes Qualifiers: Diabetes mellitus type: type 2 Diabetes mellitus kitchen food server insulin use: without fdc use Diabetes mellitus complication status: without complication Qualified Code(s): E11.9 - Type 2 diabetes mellitus without complications (8) HTN (hypertension) Qualifiers: Hypertension type: essential hypertension Qualified Code(s): I10 - Essential (primary) hypertension
[2018-05-14] MEDS: amLODIPine 5 MG TABLET PO SCH (11:24)
[2018-05-15] MEDS: *HR* Heparin 5,000 UNIT/ML VIAL SQ SCH ×2 (05:13→17:22)
[2018-05-15 05:35] LABS: Calcium 8.2 mg/dL (8.6-10.3); Potassium 3.8 mEq/L (3.5-5.1)
[2018-05-15] MEDS: Insulin LISPRO 300 UNITS/3 ML VIAL SQ SCH ×4 (08:55→20:20)
[2018-05-15] MEDS: amLODIPine 5 MG TABLET PO SCH (08:56)
--- NOTE | 2018-05-15 09:42 | Nephrology Progress Note ---
Date of Encounter: 05/15/18 Time of Encounter: 09:42 - Assessment and Plan (1) Vhorz-as-jxvkzfz kidney injury Current Visit: Yes Status: Acute Acute on chronic kidney injury with elevated creatinine and poor urine output. Evidence of acute tubular necrosis as there is granular casts in the urinalysis. This is likely prerenal and intrinsic having decreased oral intake of fluids, vomiting, diarrhea for 2 days. He takes nephrotoxic medications such as hydrochlorothiazide, lisinopril, metformin. He denied recent imaging with contrast. -Post renal obstruction has been ruled out via retroperitoneal ultrasound demonstrating no hydronephrosis. However there is right kidney atrophy with differential including renal artery stenosis, infection. The etiology for acute on chronic kidney injury is likely both prerenal and acute tubular necrosis. -creatinine 3.34, at admission 8.13 (baseline 1.1-1.4) -GFR 18 (baseline 50-57) -I/O: 1050/1900 appropriate urine output -normalized calcium and phosphorus levels -urinalysis significant for granular casts, leukocyte esterase, WBC, protein -retroperitoneal ultrasound demonstrated no hydronephrosis, left simple cyst 2.2 cm. Right kidney atrophy. Plan: -Patient has completed 3 rounds of dialysis. Will not do anymore dialysis. Tomorrow's creatinine will show if the patient will have renal recovery. We are hopeful that he will have renal recovery since he has good urine output. -patient has appropriate urine output and serum creatinine continues to be lowered by dialysis. -continue Owusu catheter in place for strict I&O -recommended to avoid nephrotoxic agents, renal dose medications -continue to monitor serum creatinine and GFR Qualifiers: Acute renal failure type: unspecified Chronic kidney disease stage: unspecified stage Qualified Code(s): N17.9 - Acute kidney failure, unspecified; N18.9 - Chronic kidney disease, unspecified (2) Hyperkalemia Current Visit: Yes Status: Acute Hyperkalemia at admission potassium 5.4. Secondary to acute kidney injury. -Resolved as potassium is now within normal limits since receiving hemodialysis (3) Anemia Current Visit: Yes Status: Acute Anemia likely secondary to iron deficiency as evidenced by iron panel study hemoglobin 10.2 (baseline 10-11) MCV normocytic iron 57, 22% saturation, transferrin 186, ferritin 98 -may benefit from iron supplementation Qualifiers: Qualified Code(s): D64.9 - Anemia, unspecified (4) Hypercalcemia Current Visit: Yes Status: Acute Hypercalcemia likely secondary to acute kidney injury -resolved, calcium within normal limits since receiving dialysis (5) Serum phosphate elevated Current Visit: Yes Status: Acute Resolved. Elevated serum phosphate level likely secondary to acute kidney injury. At admission phosphorus 5.6 -phosphorus level within normal limits since receiving dialysis Subjective Principal diagnosis: Acute on chronic kidney injury Interval history: Patient seen and examined at bedside. He is alert and oriented times 3. He denies fever, chills, nausea, vomiting, abdominal pain, shortness of breath, chest pain. He has no complaints at this time. Objective - Vital Signs Vital signs: Vital Signs Temp Pulse Resp BP Pulse Ox 05/15/18 07:12 99.3 F 82 19 136/72 96 05/15/18 04:13 99.1 F 83 16 139/73 95 05/14/18 23:17 98.8 F 82 16 128/72 96 05/14/18 19:15 98.4 F 77 16 118/68 97 05/14/18 15:33 97.7 F 72 19 131/70 97 05/14/18 12:56 98.0 F 18 138/64 05/14/18 12:10 133/63 05/14/18 11:55 131/66 05/14/18 11:40 130/63 05/14/18 11:25 127/69 05/14/18 11:10 141/68 05/14/18 10:55 139/51 05/14/18 10:40 137/63 05/14/18 10:25 136/69 05/14/18 10:10 139/65 05/14/18 09:55 133/61 Intake and Output 05/14/18 05/15/18 05/15/18 23:59 07:59 15:59 Intake Total 150 / 150 550 / 550 Output Total 1650 / 1650 Balance 150 / 150 -1650 / -1650 550 / 550 Intake: Oral 150 / 150 Free Water 550 / 550 Output: Catheter 1650 / 1650 Other: Weight 86.9 kg Blood Glucose* 240 170 Patient Weight 05/15/18 23:59 Weight 86.9 kg - General Appearance General appearance: Present: well-developed, well-nourished, appears started age EENT: Present: mucous membranes moist Neck: Present: supple Respiratory: Present: clear Cardiology: Present: no rub, no edema, regular rate, regular rhythm Dialysis Vascular Access: Venous Catheter (Right temporary hemodialysis catheter) Gastrointestinal: Present: normoactive bowel sounds, no tenderness, no guarding Integumentary: Present: no rash, warm and dry Neurologic: Present: alert and oriented x3, CN 3-12 intact Musculoskeletal: Present: no erythema, no cyanosis Psychiatric: Present: mood/affect appropriate, cooperative - Lab 05/14/18 04:54 05/15/18 04:56 Most recent lab results Calcium 8.2 mg/dL (8.6-10.3) L 05/15/18 04:56 Phosphorus 3.0 mg/dL (2.7-4.5) 05/14/18 04:54 Urine Creatinine 92 mg/dL 05/11/18 21:35 Urine Sodium 24.2 mEq/L 05/11/18 21:35 Consult Discharge Plan - Plan Referrals: Sobeida Dasilva, COW TENDER [Primary Care Provider] - (web request sent on 05/14/18)
--- NOTE | 2018-05-15 16:13 | Electrocardiograph Report ---
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
--- NOTE | 2018-05-15 19:22 | Internal Med Progress Note ---
Hospitalist Progress Note - Encounter Date of Encounter: 05/15/18 Time of Encounter: 09:00 - Subjective Interval History: Pt feels better. Denies N/V/fever. No other complaints. State good urine output. - Exam Vitals: Temp Pulse Resp BP Pulse Ox 98.9 F 64 19 104/53 96 05/15/18 11:14 05/15/18 11:14 05/15/18 11:14 05/15/18 11:14 05/15/18 11:14 Exam: Pt is AAO x3, in NAD HEENT: NC/AT, PERRL Neck: supple, no JVD Lungs: CTA b/l Heart: S1S2, RRR, no murmurs. Abd: Soft, NT, CVAT negative B/L Ext: No pedal edema Neuro: No focal deficit. - Assessment and Plan (1) Tjkap-gi-pwaenft kidney injury Current Visit: Yes Status: Acute Assessment and Plan: Etiology is undetermined. - Nephro consult on case. HD started. - US retroperitoneal shows no hydronephrosis. - Cont strict I/O, avoid nephrotoxic medications. - Will follow nephro further recommendation. (2) Leukocytosis Current Visit: Yes Status: Acute Assessment and Plan: Resolved w/o abx, consider reactive. (3) DVT prophylaxis Current Visit: No Status: Acute Assessment and Plan: Heparin SC (4) Hypercalcemia Current Visit: Yes Status: Acute Assessment and Plan: Possibly due to JEFFREY, improved after HD. (5) Hyperkalemia Current Visit: Yes Status: Acute Assessment and Plan: Improved after HD (6) Serum phosphate elevated Current Visit: Yes Status: Acute Assessment and Plan: Possibly due to JEFFREY, nephro on case and started HD. Improved after HD (7) Diabetes Current Visit: No Status: Chronic Assessment and Plan: Cont SSI. (8) HTN (hypertension) Current Visit: No Status: Chronic Assessment and Plan: Resume home meds amlodipine, hold HCTZ and lisinopril b/o JEFFREY. Closely monitor BP DVT Prophylaxis: Heparin SC - Time Spent with Patient Total time spent is greater than 50% in coordination of care (as documented) at patient's floor/unit and/or counseling patient: 30 min 25 - 35 minutes Plan of Care Discussed with: patient Internal Medicine: Result - Labs CBC & Chem 7: 05/14/18 04:54 05/15/18 04:56 Labs: BMP 05/15/18 04:56 Sodium 135 L Potassium 3.8 Chloride 99 Carbon Dioxide 28 BUN 17 Creatinine 3.34 H Glucose 178 H Calcium 8.2 L Consult Discharge Plan - Plan Referrals: Sobeida Dasilva, ARTURO [Primary Care Provider] - (web request sent on 05/14/18) (1) Dhjaa-zh-enpgegd kidney injury Qualifiers: Acute renal failure type: unspecified Chronic kidney disease stage: unspecified stage Qualified Code(s): N17.9 - Acute kidney failure, unspecified; N18.9 - Chronic kidney disease, unspecified (2) Leukocytosis Qualifiers: Leukocytosis type: unspecified Qualified Code(s): D72.829 - Elevated white blood cell count, unspecified (7) Diabetes Qualifiers: Diabetes mellitus type: type 2 Diabetes mellitus rn long term care insulin use: without rn long term care use Diabetes mellitus complication status: without complication Qualified Code(s): E11.9 - Type 2 diabetes mellitus without complications (8) HTN (hypertension) Qualifiers: Hypertension type: essential hypertension Qualified Code(s): I10 - Essential (primary) hypertension
[2018-05-16] MEDS: *HR* Heparin 5,000 UNIT/ML VIAL SQ SCH ×2 (05:42→17:48)
[2018-05-16 06:17] LABS: Calcium 8.1 mg/dL (8.6-10.3); Potassium 3.8 mEq/L (3.5-5.1)
[2018-05-16] MEDS ORDERED: 0.9 % Sodium Chloride 250 ML IVC PRN (07:00)
[2018-05-16] MEDS: amLODIPine 5 MG TABLET PO SCH (07:13)
[2018-05-16] MEDS: Insulin LISPRO 300 UNITS/3 ML VIAL SQ SCH ×4 (07:13→20:28)
[2018-05-16] MEDS ORDERED: 0.9 % Sodium Chloride 1,000 ML ONE (07:42)
--- NOTE | 2018-05-16 10:34 | Nephrology Progress Note ---
Date of Encounter: 05/16/18 Time of Encounter: 10:33 - Assessment and Plan (1) Zquig-bs-wkihpaf kidney injury Current Visit: Yes Status: Acute appears to have dialysis dep JEFFREY. Rec HD today (Friday) for clearance. Rec TDC on Friday, with NPO on Friday night. Will need a SW for HD outpatient chair. Qualifiers: Acute renal failure type: unspecified Chronic kidney disease stage: unspecified stage Qualified Code(s): N17.9 - Acute kidney failure, unspecified; N18.9 - Chronic kidney disease, unspecified Subjective Principal diagnosis: Acute on chronic kidney injury Interval history: Pt was s/e while on dialysis. He did not affirm N/V/D but affirmed having a diminished appetite and fatigue. Objective - Vital Signs Vital signs: Vital Signs Temp Pulse Resp BP Pulse Ox 05/16/18 06:52 98.6 F 81 17 142/70 94 05/16/18 04:02 97.6 F 79 18 139/69 97 05/15/18 23:39 97.7 F 82 17 119/73 97 05/15/18 18:59 97.3 F L 79 18 123/64 96 05/15/18 17:02 98.2 F 76 18 136/77 96 05/15/18 11:14 98.9 F 64 19 104/53 96 Intake and Output 05/15/18 05/16/18 05/16/18 23:59 07:59 15:59 Intake Total 500 / 500 240 / 240 Output Total 500 / 500 2675 / 2675 125 / 125 Balance -500 / -500 -2175 / -2175 115 / 115 Intake: Oral 500 / 500 240 / 240 Output: Urine 1000 / 1000 Catheter 500 / 500 1675 / 1675 125 / 125 Other: Meal Breakfast Percent of Meal Consumed 80% Blood Glucose* 244 158 - General Appearance General appearance: Present: appears started age, fatigue, frail EENT: Present: ATNC, PERRL, mucous membranes moist Neck: Present: supple Respiratory: Present: clear Cardiology: Present: no edema, regular rate, regular rhythm, normal S1, normal S2 Dialysis Vascular Access: Venous Catheter (temporary HD catheter was in place with good flows during dialysis.) Gastrointestinal: Present: normoactive bowel sounds, no tenderness, no guarding Integumentary: Present: warm and dry Neurologic: Present: no focal deficit, no asterixis, alert and oriented x3 Musculoskeletal: Present: deformities (hx of residual polio deformities. ) Psychiatric: Present: mood/affect appropriate, cooperative - Lab 05/18/18 07:20 05/18/18 07:20 Most recent lab results Calcium 8.1 mg/dL (8.6-10.3) L 05/16/18 05:25 Phosphorus 3.0 mg/dL (2.7-4.5) 05/14/18 04:54 Urine Creatinine 92 mg/dL 05/11/18 21:35 Urine Sodium 24.2 mEq/L 05/11/18 21:35 Consult Discharge Plan - Plan Referrals: Sobeida Dasilva, NATIONAL COVERAGE SPECIALIST [Primary Care Provider] - (web request sent on 05/14/18)
--- NOTE | 2018-05-16 11:40 | Internal Med Progress Note ---
Hospitalist Progress Note - Encounter Date of Encounter: 05/16/18 Time of Encounter: 09:00 - Subjective Interval History: Pt feels better. Denies N/V/fever. No other complaints. Cont HD per nephro. - Exam Vitals: Temp Pulse Resp BP Pulse Ox 98.6 F 81 17 142/70 94 05/16/18 06:52 05/16/18 06:52 05/16/18 06:52 05/16/18 06:52 05/16/18 06:52 Exam: Pt is AAO x3, in NAD HEENT: NC/AT, PERRL Neck: supple, no JVD Lungs: CTA b/l Heart: S1S2, RRR, no murmurs. Abd: Soft, NT, CVAT negative B/L Ext: No pedal edema Neuro: No focal deficit. - Assessment and Plan (1) Qxmnj-na-cpzehal kidney injury Current Visit: Yes Status: Acute Assessment and Plan: Etiology is undetermined. - Nephro consult on case. HD started. - US retroperitoneal shows no hydronephrosis. - Cont strict I/O, avoid nephrotoxic medications. - Will follow nephro further recommendation. (2) Leukocytosis Current Visit: Yes Status: Acute Assessment and Plan: Resolved w/o abx, consider reactive. (3) DVT prophylaxis Current Visit: No Status: Acute Assessment and Plan: Heparin SC (4) Diabetes Current Visit: No Status: Chronic Assessment and Plan: Cont SSI. (5) HTN (hypertension) Current Visit: No Status: Chronic Assessment and Plan: Resume home meds amlodipine, hold HCTZ and lisinopril b/o JEFFREY. Closely monitor BP DVT Prophylaxis: Heparin SC - Time Spent with Patient Total time spent is greater than 50% in coordination of care (as documented) at patient's floor/unit and/or counseling patient: 30 min 25 - 35 minutes Plan of Care Discussed with: patient Internal Medicine: Result - Labs CBC & Chem 7: 05/14/18 04:54 05/16/18 05:25 Labs: BMP 05/16/18 05:25 Sodium 137 Potassium 3.8 Chloride 98 Carbon Dioxide 27 BUN 30 H Creatinine 4.11 H Glucose 188 H Calcium 8.1 L Consult Discharge Plan - Plan Referrals: Sobeida Dasilva, COAT CHECKER [Primary Care Provider] - (web request sent on 05/14/18) (1) Wmeie-mf-czabbrk kidney injury Qualifiers: Acute renal failure type: unspecified Chronic kidney disease stage: unspecified stage Qualified Code(s): N17.9 - Acute kidney failure, unspecified; N18.9 - Chronic kidney disease, unspecified (2) Leukocytosis Qualifiers: Leukocytosis type: unspecified Qualified Code(s): D72.829 - Elevated white blood cell count, unspecified (4) Diabetes Qualifiers: Diabetes mellitus type: type 2 Diabetes mellitus penitentiary insulin use: without adjunct faculty for medical terminology use Diabetes mellitus complication status: without complication Qualified Code(s): E11.9 - Type 2 diabetes mellitus without complications (5) HTN (hypertension) Qualifiers: Hypertension type: essential hypertension Qualified Code(s): I10 - Essential (primary) hypertension
[2018-05-17 02:44] LABS: Hematocrit 29.8 % (37.5-50.1); Mean Corpuscular HGB Conc 33.6 g/dL (31.6-35.5); Mean Corpuscular Hemoglobin 31.5 pg (28.0-33.3); Mean Platelet Volume 10.7 fL (9.4-12.4); Platelet Count 243 K/mcL (140-400); Red Blood Count 3.17 M/mcL (4.19-5.50); Red Cell Distribution Width 11.3 % (11.5-14.5)
[2018-05-17 03:03] LABS: Calcium 8.2 mg/dL (8.6-10.3); Potassium 3.7 mEq/L (3.5-5.1)
[2018-05-17] MEDS: *HR* Heparin 5,000 UNIT/ML VIAL SQ SCH ×2 (04:41→17:17)
[2018-05-17] MEDS: amLODIPine 5 MG TABLET PO SCH (07:53)
[2018-05-17] MEDS: Insulin LISPRO 300 UNITS/3 ML VIAL SQ SCH ×4 (07:54→21:47)
--- NOTE | 2018-05-17 10:36 | Internal Med Progress Note ---
Hospitalist Progress Note - Encounter Date of Encounter: 05/17/18 Time of Encounter: 09:00 - Subjective Interval History: Pt feels fine. Denies N/V/fever. No other complaints. Cont HD per nephro. Plan for permacath tomorrow and cont HD as outpatient. - Exam Vitals: Temp Pulse Resp BP Pulse Ox 98.4 F 81 19 149/68 96 05/17/18 07:21 05/17/18 07:21 05/17/18 07:21 05/17/18 07:21 05/17/18 08:12 Exam: Pt is AAO x3, in NAD HEENT: NC/AT, PERRL Neck: supple, no JVD Lungs: CTA b/l Heart: S1S2, RRR, no murmurs. Abd: Soft, NT, CVAT negative B/L Ext: No pedal edema Neuro: No focal deficit. - Assessment and Plan (1) Cfsaj-ei-vihybuu kidney injury Current Visit: Yes Status: Acute Assessment and Plan: Etiology is undetermined. - Nephro consult on case. HD started. - US retroperitoneal shows no hydronephrosis. - Cont strict I/O, avoid nephrotoxic medications. - Will follow nephro further recommendation. (2) Leukocytosis Current Visit: Yes Status: Acute Assessment and Plan: Resolved w/o abx, consider reactive. (3) DVT prophylaxis Current Visit: No Status: Acute Assessment and Plan: Heparin SC (4) Diabetes Current Visit: No Status: Chronic Assessment and Plan: Cont SSI. (5) HTN (hypertension) Current Visit: No Status: Chronic Assessment and Plan: Resume home meds amlodipine, increase dose to 10mg po daily, hold HCTZ and lisinopril b/o JEFFREY. Closely monitor BP DVT Prophylaxis: Heparin SC - Time Spent with Patient Total time spent is greater than 50% in coordination of care (as documented) at patient's floor/unit and/or counseling patient: 30 min 25 - 35 minutes Plan of Care Discussed with: patient Internal Medicine: Result - Labs CBC & Chem 7: 05/17/18 02:30 05/17/18 02:30 Labs: Short CBC 05/17/18 Range/Units 02:30 WBC 9.6 (4.3-11.1) K/mcL Hgb 10.0 L (12.9-16.9) g/dL Hct 29.8 L (37.5-50.1) % Plt Count 243 (140-400) K/mcL [facility] 05/17/18 02:30 Sodium 138 Potassium 3.7 Chloride 100 Carbon Dioxide 27 BUN 16 Creatinine 2.23 H Glucose 150 H Calcium 8.2 L Consult Discharge Plan - Plan Referrals: Sobeida Dasilva, PATIENT RELATIONS DIRECTOR [Primary Care Provider] - (web request sent on 05/14/18) (1) Fgbqd-yd-xoboobo kidney injury Qualifiers: Acute renal failure type: unspecified Chronic kidney disease stage: unspecified stage Qualified Code(s): N17.9 - Acute kidney failure, unspecified; N18.9 - Chronic kidney disease, unspecified (2) Leukocytosis Qualifiers: Leukocytosis type: unspecified Qualified Code(s): D72.829 - Elevated white blood cell count, unspecified (4) Diabetes Qualifiers: Diabetes mellitus type: type 2 Diabetes mellitus skilled nursing insulin use: without long term care pharmacist use Diabetes mellitus complication status: without complication Qualified Code(s): E11.9 - Type 2 diabetes mellitus without complications (5) HTN (hypertension) Qualifiers: Hypertension type: essential hypertension Qualified Code(s): I10 - Essential (primary) hypertension
--- NOTE | 2018-05-17 12:19 | Event Note ---
Date of Encounter: 05/17/18 Time of Encounter: 12:17 Nephrology Chart Review Last completed HD yesterday (Friday) and no HD recommended for today. He appears to be headed into a dialysis dependent JEFFREY. I'll empirically make him NPO at [place] with an IR consult for a TDC, and provide a sign-out to my colleague. If his SCr is not worsened in AM, then I would stop the TDC placement. Thank you.
[2018-05-18] MEDS: *HR* Heparin 5,000 UNIT/ML VIAL SQ SCH ×2 (05:08→17:06)
[2018-05-18 07:44] LABS: Hematocrit 29.1 % (37.5-50.1); Hemoglobin 9.7 g/dL (12.9-16.9); Mean Corpuscular HGB Conc 33.3 g/dL (31.6-35.5); Mean Corpuscular Hemoglobin 31.5 pg (28.0-33.3); Mean Corpuscular Volume 94.5 fL (83.0-100.0); Mean Platelet Volume 10.6 fL (9.4-12.4); Platelet Count 254 K/mcL (140-400); Red Blood Count 3.08 M/mcL (4.19-5.50); Red Cell Distribution Width 11.5 % (11.5-14.5)
[2018-05-18 07:48] LABS: Potassium 3.6 mEq/L (3.5-5.1)
[2018-05-18 07:49] LABS: Calcium 8.4 mg/dL (8.6-10.3)
[2018-05-18] MEDS: amLODIPine 5 MG TABLET PO SCH (07:54)
[2018-05-18 07:56] LABS: Prothrombin Time 11.4 Seconds (9.4-12.1)
[2018-05-18] MEDS: Insulin LISPRO 300 UNITS/3 ML VIAL SQ SCH ×5 (07:56→21:20)
--- NOTE | 2018-05-18 13:01 | Internal Med Progress Note ---
Hospitalist Progress Note - Encounter Date of Encounter: 05/18/18 Time of Encounter: 09:00 - Subjective Interval History: Pt feels fine. Denies N/V/fever. No other complaints. Cont HD per nephro. Plan for permacath today. - Exam Vitals: Temp Pulse Resp BP Pulse Ox 98.6 F 73 16 151/72 96 05/18/18 10:48 05/18/18 10:48 05/18/18 10:48 05/18/18 10:48 05/18/18 10:48 Exam: Pt is AAO x3, in NAD HEENT: NC/AT, PERRL Neck: supple, no JVD Lungs: CTA b/l Heart: S1S2, RRR, no murmurs. Abd: Soft, NT, CVAT negative B/L Ext: No pedal edema Neuro: No focal deficit. - Assessment and Plan (1) Mnnmc-au-ahwiipx kidney injury Current Visit: Yes Status: Acute Assessment and Plan: Etiology is undetermined. - Nephro consult on case. HD started. - US retroperitoneal shows no hydronephrosis. - Cont strict I/O, avoid nephrotoxic medications. - Will have permacath today for outpatient HD. (2) Leukocytosis Current Visit: Yes Status: Acute Assessment and Plan: Resolved w/o abx, consider reactive. (3) DVT prophylaxis Current Visit: No Status: Acute Assessment and Plan: Heparin SC (4) Diabetes Current Visit: No Status: Chronic Assessment and Plan: Cont SSI. (5) HTN (hypertension) Current Visit: No Status: Chronic Assessment and Plan: Resume home meds amlodipine, increase dose to 10mg po daily, hold HCTZ and lisinopril b/o JEFFREY. Closely monitor BP DVT Prophylaxis: Heparin SC - Time Spent with Patient Total time spent is greater than 50% in coordination of care (as documented) at patient's floor/unit and/or counseling patient: 30 min 25 - 35 minutes Plan of Care Discussed with: patient Internal Medicine: Result - Labs CBC & Chem 7: 05/18/18 07:20 05/18/18 07:20 Labs: Short CBC 05/18/18 Range/Units 07:20 WBC 10.0 (4.3-11.1) K/mcL Hgb 9.7 L (12.9-16.9) g/dL Hct 29.1 L (37.5-50.1) % Plt Count 254 (140-400) K/mcL BMP 05/18/18 07:20 Sodium 137 Potassium 3.6 Chloride 101 Carbon Dioxide 28 BUN 26 H Creatinine 3.10 H Glucose 185 H Calcium 8.4 L - ABG Interpretation ABG results: PT/INR, D-dimer PT 11.4 Seconds (9.4-12.1) 05/18/18 07:20 Consult Discharge Plan - Plan Referrals: Sobeida Dasilva, INSURANCE TERRITORY MANAGER [Primary Care Provider] - (web request sent on 05/14/18) __ (1) Cgshw-tz-fluiunf kidney injury Qualifiers: Acute renal failure type: unspecified Chronic kidney disease stage: unspecified stage Qualified Code(s): N17.9 - Acute kidney failure, unspecified; N18.9 - Chronic kidney disease, unspecified (2) Leukocytosis Qualifiers: Leukocytosis type: unspecified Qualified Code(s): D72.829 - Elevated white blood cell count, unspecified (4) Diabetes Qualifiers: Diabetes mellitus type: type 2 Diabetes mellitus termite technician insulin use: without intermediate use Diabetes mellitus complication status: without complication Qualified Code(s): E11.9 - Type 2 diabetes mellitus without complications (5) HTN (hypertension) Qualifiers: Hypertension type: essential hypertension Qualified Code(s): I10 - Essential (primary) hypertension
--- NOTE | 2018-05-18 13:22 | Nephrology Progress Note ---
Date of Encounter: 05/18/18 Time of Encounter: 13:20 - Assessment and Plan (1) Xkzml-sj-yptvccm kidney injury Current Visit: Yes Status: Acute Patient presented with Acute on chronic kidney injury with elevated creatinine and poor urine output. Evidence of acute tubular necrosis as there is granular casts in the urinalysis. This is likely prerenal and intrinsic having decreased oral intake of fluids, vomiting, diarrhea for 2 days. He takes nephrotoxic medications such as hydrochlorothiazide, lisinopril, metformin. He denied recent imaging with contrast. -Post renal obstruction has been ruled out via retroperitoneal ultrasound demonstrating no hydronephrosis. However there is right kidney atrophy with differential including renal artery stenosis, infection. The etiology for acute on chronic kidney injury is likely both prerenal and acute tubular necrosis. -creatinine 3.10, at admission 8.13 (baseline 1.1-1.4) -GFR 20 (baseline 50-57) -I/O: 1100/1950 appropriate urine output -urinalysis significant for granular casts, leukocyte esterase, WBC, protein -retroperitoneal ultrasound demonstrated no hydronephrosis, left simple cyst 2.2 cm. Right kidney atrophy. Plan: -The patient has developed dialysis dependent acute kidney injury. Social work will set up for the patient have chair time for dialysis. Interventional radiology will place a temporary hemodialysis catheter. The patient will have HD tomorrow and then may be discharged afterwards. Patient has completed 4 rounds of dialysis. We are hopeful that he will have renal recovery since he has good urine output. This has been explained to the patient and he acknowledged understanding. All questions were answered -patient has appropriate urine output and serum creatinine continues to be lowered by dialysis. -continue Owusu catheter in place for strict I&O -recommended to avoid nephrotoxic agents, renal dose medications -continue to monitor serum creatinine and GFR Qualifiers: Acute renal failure type: unspecified Chronic kidney disease stage: unspecified stage Qualified Code(s): N17.9 - Acute kidney failure, unspecified; N18.9 - Chronic kidney disease, unspecified (2) Hyperkalemia Current Visit: Yes Status: Acute Hyperkalemia at admission potassium 5.4. Secondary to acute kidney injury. -Resolved as potassium is now within normal limits since receiving hemodialysis (3) Anemia Current Visit: Yes Status: Acute Anemia likely secondary to iron deficiency as evidenced by iron panel study hemoglobin 9.7 (baseline 10-11) MCV normocytic iron 57, 22% saturation, transferrin 186, ferritin 98 -Patient has been started on ferrous sulfate supplementation, recommended to continue Qualifiers: Qualified Code(s): D64.9 - Anemia, unspecified (4) Hypercalcemia Current Visit: Yes Status: Acute Hypercalcemia initially likely secondary to acute kidney injury. -resolved, calcium within normal limits since receiving dialysis (5) Serum phosphate elevated Current Visit: Yes Status: Acute Resolved. Elevated serum phosphate level likely secondary to acute kidney injur y. At admission phosphorus 5.6 -phosphorus level within normal limits since receiving dialysis Subjective Principal diagnosis: Acute on chronic kidney injury Interval history: Patient seen and examined at bedside. He is alert and oriented times 3. He denies fever, chills, nausea, vomiting, abdominal pain, shortness of breath, chest pain. He has no complaints at this time. Objective - Vital Signs Vital signs: Vital Signs Temp Pulse Resp BP Pulse Ox 05/18/18 10:48 98.6 F 73 16 151/72 96 05/18/18 07:59 97 05/18/18 07:11 98.2 F 88 16 134/66 97 05/18/18 04:21 98.5 F 77 16 115/54 98 05/17/18 23:42 98.4 F 73 18 120/66 98 05/17/18 18:54 97.9 F 85 15 136/70 99 05/17/18 16:29 98.3 F 88 17 123/66 97 Intake and Output 05/17/18 05/18/18 05/18/18 23:59 07:59 15:59 Intake Total 480 / 480 0 / 0 Output Total 800 / 800 400 / 400 Balance -320 / -320 -400 / -400 0 / 0 Intake: Oral 480 / 480 0 / 0 Output: Urine 350 / 350 Catheter 450 / 450 400 / 400 Other: Meal Dinner npo Percent of Meal Consumed 100% Weight 81.7 kg Blood Glucose* 262 208 212 Patient Weight 05/18/18 23:59 Weight 81.7 kg - General Appearance General appearance: Present: well-developed, well-nourished, appears started age EENT: Present: mucous membranes moist Neck: Present: no thyromegaly, supple Respiratory: Present: clear Cardiology: Present: no murmurs, no gallops, regular rate, regular rhythm Dialysis Vascular Access: Venous Catheter (right temporary dialysis catheter) Gastrointestinal: Present: normoactive bowel sounds, no tenderness, no guarding, no masses Integumentary: Present: no rash, warm and dry Neurologic: Present: alert and oriented x3, CN 3-12 intact Musculoskeletal: Present: no erythema, no cyanosis, no clubbing Psychiatric: Present: mood/affect appropriate, cooperative - Lab 05/18/18 07:20 05/18/18 07:20 Most recent lab results Calcium 8.4 mg/dL (8.6-10.3) L 05/18/18 07:20 Phosphorus 3.0 mg/dL (2.7-4.5) 05/14/18 04:54 Urine Creatinine 92 mg/dL 05/11/18 21:35 Urine Sodium 24.2 mEq/L 05/11/18 21:35 Consult Discharge Plan - Plan Referrals: Sobeida Dasilva ORIENTAL MEDICINE PRACTITIONER [Primary Care Provider] - (web request sent on 05/14/18)
[2018-05-19 04:21] LABS: Hematocrit 28.6 % (37.5-50.1); Hemoglobin 9.9 g/dL (12.9-16.9); Mean Corpuscular HGB Conc 34.6 g/dL (31.6-35.5); Mean Corpuscular Hemoglobin 31.7 pg (28.0-33.3); Mean Corpuscular Volume 91.7 fL (83.0-100.0); Mean Platelet Volume 10.4 fL (9.4-12.4); Platelet Count 274 K/mcL (140-400); Red Blood Count 3.12 M/mcL (4.19-5.50); Red Cell Distribution Width 11.4 % (11.5-14.5)
[2018-05-19 04:36] LABS: Calcium 8.1 mg/dL (8.6-10.3); Potassium 3.6 mEq/L (3.5-5.1)
[2018-05-19] MEDS: *HR* Heparin 5,000 UNIT/ML VIAL SQ SCH ×2 (04:40→18:09)
[2018-05-19] MEDS ORDERED: 0.9 % Sodium Chloride 250 ML IVC PRN (07:57)
[2018-05-19] MEDS ORDERED: *HR* Heparin 10,000 UNIT/10 ML VIAL IV PRN (07:57)
--- NOTE | 2018-05-19 09:26 | Nephrology Progress Note ---
Date of Encounter: 05/19/18 Time of Encounter: 09:00 - Assessment and Plan (1) Uhytz-px-whwkqcb kidney injury Current Visit: Yes Status: Acute Patient presented with Acute on chronic kidney injury with elevated creatinine and poor urine output. Evidence of acute tubular necrosis as there is granular casts in the urinalysis. This is likely prerenal and intrinsic having decreased oral intake of fluids, vomiting, diarrhea for 2 days. He takes nephrotoxic medications such as hydrochlorothiazide, lisinopril, metformin. He denied recent imaging with contrast. -Post renal obstruction has been ruled out via retroperitoneal ultrasound demonstrating no hydronephrosis. However there is right kidney atrophy with differential including renal artery stenosis, infection. The etiology for acute on chronic kidney injury is likely both prerenal and acute tubular necrosis. -creatinine 3.05, at admission 8.13 (baseline 1.1-1.4) -GFR 20 (baseline 50-57) -I/O: 400/1825 appropriate urine output -urinalysis significant for granular casts, leukocyte esterase, WBC, protein -retroperitoneal ultrasound demonstrated no hydronephrosis, left simple cyst 2.2 cm. Right kidney atrophy. Plan: -The patient has developed dialysis dependent acute kidney injury. He will have HD today. Social work will set up for the patient have chair time. He has been accepted to [facility] however we are still waiting time. Interventional radiology will place a tunneled dialysis catheter today. He may be discharged once chair time set and dialysis catheter placed. We are hopeful that he will have renal recovery since he has good urine output. This has been explained to the patient and he acknowledged understanding. All questions were answered -patient has appropriate urine output and serum creatinine continues to be lowered by dialysis. -continue Owusu catheter in place for strict I&O -recommended to avoid nephrotoxic agents, renal dose medications -continue to monitor serum creatinine and GFR Qualifiers: Acute renal failure type: unspecified Chronic kidney disease stage: unspecified stage Qualified Code(s): N17.9 - Acute kidney failure, unspecified; N18.9 - Chronic kidney disease, unspecified (2) Hyperkalemia Current Visit: Yes Status: Acute Resolved. Hyperkalemia at admission potassium 5.4. Secondary to acute kidney injury. (3) Anemia Current Visit: Yes Status: Acute Anemia likely secondary to iron deficiency as evidenced by iron panel study hemoglobin 9.9 (baseline 10-11) MCV normocytic iron 57, 22% saturation, transferrin 186, ferritin 98 -Patient has been started on ferrous sulfate supplementation, recommended to continue Qualifiers: Qualified Code(s): D64.9 - Anemia, unspecified (4) Hypercalcemia Current Visit: Yes Status: Acute Resolved. Hypercalcemia initially likely secondary to acute kidney injury. (5) Serum phosphate elevated Current Visit: Yes Status: Acute Resolved. Elevated serum phosphate level likely secondary to acute kidney injury. At admission phosphorus 5.6 Subjective Principal diagnosis: Acute on chronic kidney injury Interval history: Patient seen and examined at bedside during dialysis. He is alert and oriented times 3. He denies fever, chills, nausea, vomiting, abdominal pain, shortness of breath, chest pain. He has no complaints at this time. Objective - Vital Signs Vital signs: Vital Signs Temp Pulse Resp BP Pulse Ox 05/19/18 07:02 98.4 F 72 19 132/62 97 05/19/18 04:54 98.5 F 73 18 137/57 98 05/18/18 22:49 98.7 F 91 18 106/55 94 05/18/18 19:44 97.7 F 85 16 136/77 99 05/18/18 15:14 97.8 F 98 16 120/77 97 05/18/18 10:48 98.6 F 73 16 151/72 96 Intake and Output 05/18/18 05/19/18 05/19/18 23:59 07:59 15:59 Intake Total 400 / 400 Output Total 725 / 725 800 / 800 Balance -325 / -325 -800 / -800 Intake: Oral 400 / 400 Output: Catheter 725 / 725 800 / 800 Other: Meal Dinner Percent of Meal Consumed 40% Stool Size Moderate Stool Consistency formed # Bowel Movements 1 Blood Glucose* 266 183 - General Appearance General appearance: Present: well-developed, well-nourished, appears started age EENT: Present: mucous membranes moist Neck: Present: supple Cardiology: Present: mid-systolic murmur, regular rate, regular rhythm Dialysis Vascular Access: Venous Catheter (right side temp line) Gastrointestinal: Present: normoactive bowel sounds, no tenderness, no guarding, no masses Integumentary: Present: no rash, warm and dry Neurologic: Present: no asterixis, alert and oriented x3 Musculoskeletal: Present: no erythema, no clubbing Psychiatric: Present: mood/affect appropriate, cooperative - Lab 05/19/18 04:00 05/19/18 04:10 Most recent lab results Calcium 8.1 mg/dL (8.6-10.3) L 05/19/18 04:10 Phosphorus 3.0 mg/dL (2.7-4.5) 05/14/18 04:54 Urine Creatinine 92 mg/dL 05/11/18 21:35 Urine Sodium 24.2 mEq/L 05/11/18 21:35 Consult Discharge Plan - Plan Referrals: Sobeida Dasilva, CELLULAR EQUIPMENT REPAIRER [Primary Care Provider] - (web request sent on 05/14/18)
[2018-05-19] MEDS: Insulin LISPRO 300 UNITS/3 ML VIAL SQ SCH ×4 (09:53→20:35)
[2018-05-19] MEDS ORDERED: Heparin 1,000 UNITS/500 mL 500 ML ONE (11:35)
[2018-05-19] MEDS: amLODIPine 5 MG TABLET PO SCH (11:45)
[2018-05-19] MEDS ORDERED: *HR* FentaNYL (PF) 100 MCG/2 ML VIAL IVP ONE (11:52)
[2018-05-19] MEDS ORDERED: ceFAZolin 2,000 MG in 0.9 % Sodium Chloride 100 ML IVPB ONE (11:52)
[2018-05-19] MEDS ORDERED: *HR* Midazolam HCl 2 MG/2 ML VIAL IVP ONE (11:52)
--- NOTE | 2018-05-19 12:02 | Pre-Sedation Evaluation ---
Pre-sedation evaluation - Pre-sedation checklist Date of procedure: 05/12/18 Procedure: tunneled dialysis catheter Recent Vitals: Last Vital Signs Temp 98.1 F 05/19/18 08:10 Pulse 72 05/19/18 07:02 Resp 18 05/19/18 08:10 BP 121/65 05/19/18 11:25 Pulse Ox 97 05/19/18 07:02 H&P (including ROS) documented in medical record: Yes Previous reaction to sedatives/anesthetics: No Dietary Status: NPO after Midnight Airway Assessment: Patient can open mouth completely, TMJ function normal Possible difficult airway: No ASA Classification *see protocol: CLASS II-Mild systemic disease Plan of Care: Pt appropriate candidate for procedure/moderate/conscious sedation, Risks/benefits of procedure/sedation discussed w/ patient/family
[2018-05-19] MEDS ORDERED: 0.9 % Sodium Chloride 500 ML ONE (12:11)
[2018-05-19] MEDS ORDERED: CeFAZolin Premix DUPLEX 2,000 MG/50 ML BAG IVPB ONE (12:15)
[2018-05-19] MEDS ORDERED: *HR* Heparin 5,000 UNIT/ML VIAL ONE (12:40)
--- NOTE | 2018-05-19 12:51 | IR Procedure Note ---
Date of procedure: 05/19/18 Consent Obtained: Verbal consent, Written consent Timeout: Correct patient and procedure verified, Correct site verified, Time out performed, Skin prep completed Indications: half-way dialysis Procedure Performed: right IJ tunneled dialysis catheter Was there an materials assistant present: No Site/Technique: right IJ Results/Findings: successful right IJ permacath, removed right tempcath Estimated blood loss (cc): 0 Complications: None; Tolerated procedure well Post Procedure Treatment Plan: ok to use catheter Specimen: NA
--- NOTE | 2018-05-19 16:14 | Internal Med Progress Note ---
Hospitalist Progress Note - Encounter Date of Encounter: 05/19/18 Time of Encounter: 15:10 - Subjective Interval History: Mr. Chavarria is a 77 year old male Patient presented to the ER with complaints of feeling tired. He states that ever since his PCP placed him on a new diabetic medication (Trullicity) he has felt weak. Initially this was changed as his PCP was concerned about possible harm to his kidneys. He states that he has also had diarrhea with vomiting today, as well as a loss of appetite. He denies chest and abdominal pain, dysuria, but has had decreased urine output. He has a history of chronic kidney disease stage III. In the ER His potassium was 5.4, BUN was 98 and creatinine was 8.13. He was admitted on 05/11, nephrology was consulted and started on HD on 05/12. His kidney function did not improve, became HD dependent. patient had Permacath placed today, discussed with nephrology, they are ok to discharge when OP HD chair set up. I discussed with case hardener, OP chair is not ready for today yet. - Exam Vitals: Temp Pulse Resp BP Pulse Ox 97.8 F 90 17 127/65 97 05/19/18 11:50 05/19/18 12:36 05/19/18 12:36 05/19/18 12:36 05/19/18 12:36 Exam: Pt is AAO x3, in NAD HEENT: NC/AT, PERRL Neck: supple, no JVD Lungs: CTA b/l Heart: S1S2, RRR, no murmurs. Abd: Soft, NT, CVAT negative B/L Ext: No pedal edema Neuro: No focal deficit. - Assessment and Plan (1) Wwbat-py-invhwzc kidney injury Current Visit: Yes Status: Acute Assessment and Plan: - Nephro consult on case. HD started. - US retroperitoneal shows no hydronephrosis. - Cont strict I/O, avoid nephrotoxic medications. - permacath today on 05/19 await for OP HD chair, discussed with case hardener and nephrology (2) HTN (hypertension) Current Visit: Yes Status: Chronic Assessment and Plan: continue amlodipine, hold HCTX, lisinopril (3) Diabetes Current Visit: Yes Status: Chronic Assessment and Plan: on SSI (4) Hyperlipidemia Current Visit: No Status: Chronic (5) Leukocytosis Current Visit: Yes Status: Acute DVT Prophylaxis: Heparin SC - Time Spent with Patient Total time spent is greater than 50% in coordination of care (as documented) at patient's floor/unit and/or counseling patient: 25 - 35 minutes Plan of Care Discussed with: patient Internal Medicine: Result - Labs CBC & Chem 7: 05/19/18 04:00 05/19/18 04:10 Labs: Short CBC 05/19/18 Range/Units 04:00 WBC 11.3 H (4.3-11.1) K/mcL Hgb 9.9 L (12.9-16.9) g/dL Hct 28.6 L (37.5-50.1) % Plt Count 274 (140-400) K/mcL BMP 05/19/18 04:10 Sodium 138 Potassium 3.6 Chloride 100 Carbon Dioxide 27 BUN 31 H Creatinine 3.05 H Glucose 163 H Calcium 8.1 L - ABG Interpretation ABG results: PT/INR, D-dimer PT 11.4 Seconds (9.4-12.1) 05/18/18 07:20 - Impressions Impressions Guidance Ultrasound 05/19/18 00:00 IMPRESSION: Successful ultrasound and fluoroscopy guided tunneled catheter placement . D/ / Clint Zuniga / Clint Zuniga Interpreting Provider: Clint Zuniga Insertion Tunneled Catheter 05/19/18 00:00 IMPRESSION: Successful ultrasound and fluoroscopy guided tunneled catheter placement . D/ / Clint Zuniga / Clint Zuniga Interpreting Provider: Clint Zuniga Consult Discharge Plan - Plan Referrals: Sobeida Dasilva, SOCIAL MEDIA MANAGER [Primary Care Provider] - (web request sent on 05/14/18) (1) Arxtb-gc-awyplgv kidney injury Qualifiers: Acute renal failure type: unspecified Chronic kidney disease stage: unspecified stage Qualified Code(s): N17.9 - Acute kidney failure, unspecified; N18.9 - Chronic kidney disease, unspecified (2) HTN (hypertension) Qualifiers: Hypertension type: essential hypertension Qualified Code(s): I10 - Essential (primary) hypertension (3) Diabetes Qualifiers: Diabetes mellitus type: type 2 Diabetes mellitus log haul operator insulin use: without log haul operator use Diabetes mellitus complication status: without complication Qualified Code(s): E11.9 - Type 2 diabetes mellitus without complications (4) Hyperlipidemia Qualifiers: Hyperlipidemia type: Pure hypercholesterolemia (5) Leukocytosis Qualifiers: Leukocytosis type: unspecified Qualified Code(s): D72.829 - Elevated white blood cell count, unspecified
[2018-05-20 04:25] LABS: Hematocrit 29.2 % (37.5-50.1); Hemoglobin 9.9 g/dL (12.9-16.9); Mean Corpuscular HGB Conc 33.9 g/dL (31.6-35.5); Mean Corpuscular Hemoglobin 32.2 pg (28.0-33.3); Mean Corpuscular Volume 95.1 fL (83.0-100.0); Mean Platelet Volume 10.6 fL (9.4-12.4); Platelet Count 250 K/mcL (140-400); Red Blood Count 3.07 M/mcL (4.19-5.50); Red Cell Distribution Width 11.6 % (11.5-14.5)
[2018-05-20 04:44] LABS: Calcium 7.9 mg/dL (8.6-10.3); Potassium 3.5 mEq/L (3.5-5.1)
[2018-05-20] MEDS: *HR* Heparin 5,000 UNIT/ML VIAL SQ SCH ×2 (05:08→17:00)
[2018-05-20] MEDS: amLODIPine 5 MG TABLET PO SCH (07:48)
[2018-05-20] MEDS: Insulin LISPRO 300 UNITS/3 ML VIAL SQ SCH ×4 (07:48→20:36)
--- NOTE | 2018-05-20 08:53 | Nephrology Progress Note ---
Date of Encounter: 05/20/18 Time of Encounter: 08:49 - Assessment and Plan (1) Idkne-kj-ytojtpj kidney injury Current Visit: Yes Status: Acute Patient presented with Acute on chronic kidney injury with elevated creatinine and poor urine output. Evidence of acute tubular necrosis as there is granular casts in the urinalysis. This is likely prerenal and intrinsic having decreased oral intake of fluids, vomiting, diarrhea for 2 days. He takes nephrotoxic medications such as hydrochlorothiazide, lisinopril, metformin. He denied recent imaging with contrast. -Post renal obstruction has been ruled out via retroperitoneal ultrasound demonstrating no hydronephrosis. However there is right kidney atrophy with differential including renal artery stenosis, infection. The etiology for acute on chronic kidney injury is likely both prerenal and acute tubular necrosis. -creatinine 2.06, at admission 8.13 (baseline 1.1-1.4) -GFR 31 (baseline 50-57) -I/O: 770/3090 appropriate urine output -urinalysis significant for granular casts, leukocyte esterase, WBC, protein -retroperitoneal ultrasound demonstrated no hydronephrosis, left simple cyst 2.2 cm. Right kidney atrophy. Plan: -The patient has developed dialysis dependent acute kidney injury. He will have HD today. Social work will set up for the patient have chair time. He has been accepted to [facility] however we are still waiting time. Patient has a tunneled dialysis catheter in place. He may be discharged once chair time set and dialysis catheter placed. We are hopeful that he will have renal recovery since he has good urine output. This has been explained to the patient and he acknowledged understanding. All questions were answered -patient has appropriate urine output and serum creatinine continues to be lowered by dialysis. -may discontinue Owusu catheter however continue to monitor I&O -recommended to avoid nephrotoxic agents, renal dose medications -continue to monitor serum creatinine and GFR Qualifiers: Acute renal failure type: unspecified Chronic kidney disease stage: unspecified stage Qualified Code(s): N17.9 - Acute kidney failure, unspecified; N18.9 - Chronic kidney disease, unspecified (2) Hyperkalemia Current Visit: Yes Status: Acute Resolved. Hyperkalemia at admission potassium 5.4. Secondary to acute kidney injury. (3) Leukocytosis Current Visit: Yes Status: Acute Mild Elevated white blood cell count WBC 12.9. He is afebrile and meets no other SIRS criteria. -He denies dysuria, hematuria, cough, shortness of breath, fever, chill -patient does have a Owusu catheter in place for strict I&O -will discontinue Owusu catheter -ordered incentive spirometry -PT OT consulted for increased activity Qualifiers: Leukocytosis type: unspecified Qualified Code(s): D72.829 - Elevated white blood cell count, unspecified (4) Anemia Current Visit: Yes Status: Acute Anemia likely secondary to iron deficiency as evidenced by iron panel study hemoglobin 9.9 (baseline 10-11) MCV normocytic iron 57, 22% saturation, transferrin 186, ferritin 98 -Patient has been started on ferrous sulfate supplementation, recommended to continue Qualifiers: Qualified Code(s): D64.9 - Anemia, unspecified (5) Hypercalcemia Current Visit: Yes Status: Acute Resolved. Hypercalcemia initially likely secondary to acute kidney injury. (6) Serum phosphate elevated Current Visit: Yes Status: Acute Resolved. Elevated serum phosphate level likely secondary to acute kidney injury. At admission phosphorus 5.6 Subjective Principal diagnosis: Acute on chronic kidney injury Interval history: Patient seen and examined at bedside. He is alert and oriented times 3. He denies fever, chills, nausea, vomiting, abdominal pain, shortness of breath, chest pain. He has no complaints at this time. Still awaiting hepatitis B core test before [facility] dialysis center will accept patient for chair time. Objective - Vital Signs Vital signs: Vital Signs Temp Pulse Resp BP Pulse Ox 05/20/18 07:03 98.6 F 74 17 125/63 99 05/20/18 03:29 99.8 F H 83 18 123/60 97 05/19/18 23:44 98.1 F 80 16 120/65 97 05/19/18 20:42 99 05/19/18 19:46 97.9 F 87 16 123/61 97 05/19/18 17:12 98.7 F 99 15 132/71 99 05/19/18 12:36 90 17 127/65 97 05/19/18 12:15 90 15 139/64 05/19/18 11:50 97.8 F 18 126/63 05/19/18 11:40 115/62 05/19/18 11:25 121/65 05/19/18 11:10 111/63 05/19/18 10:55 138/74 05/19/18 10:40 115/68 05/19/18 10:25 122/66 05/19/18 10:10 130/66 05/19/18 09:55 124/65 05/19/18 09:40 115/63 05/19/18 09:25 128/63 05/19/18 09:10 124/62 05/19/18 08:55 128/66 Intake and Output 05/19/18 05/20/18 05/20/18 23:59 07:59 15:59 Intake Total 170 / 170 480 / 480 Output Total 275 / 275 425 / 425 Balance -105 / -105 -425 / -425 480 / 480 Intake: IV Fluids 50 / 50 Ancef Premix DUPLEX 2,000 mg In 50 / 50 50 ml @ 100 mls/hr IVPB ONCE ONE Rx#:[id number] Oral 120 / 120 480 / 480 Output: Catheter 275 / 275 425 / 425 Urethral (Owusu) 75 / 75 Other: Meal Dinner Breakfast Percent of Meal Consumed 5% 100% Weight 88.5 kg Blood Glucose* 243 173 - General Appearance General appearance: Present: well-developed, well-nourished, appears started age EENT: Present: mucous membranes moist Neck: Present: supple Respiratory: Present: clear Cardiology: Present: mid-systolic murmur, no edema, regular rate, regular rhythm Dialysis Vascular Access: Venous Catheter (right side dialysis catheter) Gastrointestinal: Present: normoactive bowel sounds, no tenderness, no guarding Integumentary: Present: no rash, warm and dry Neurologic: Present: no focal deficit, no asterixis, alert and oriented x3 Musculoskeletal: Present: no erythema, no clubbing Psychiatric: Present: mood/affect appropriate, cooperative - Lab 05/20/18 03:51 05/20/18 03:51 Most recent lab results Calcium 7.9 mg/dL (8.6-10.3) L 05/20/18 03:51 Phosphorus 3.0 mg/dL (2.7-4.5) 05/14/18 04:54 Urine Creatinine 92 mg/dL 05/11/18 21:35 Urine Sodium 24.2 mEq/L 05/11/18 21:35 Consult Discharge Plan - Plan Referrals: Sobeida Dasilva CNP [Primary Care Provider] - (web request sent on 05/14/18)
--- NOTE | 2018-05-20 11:42 | Internal Med Progress Note ---
Date of Encounter: 05/20/18 Time of Encounter: 11:39 - Time Spent With Patient - Assessment and Plan (1) Pmorg-mj-cyixcve kidney injury Current Visit: Yes Status: Acute Assessment and Plan: - Nephro consult on case. HD started. - US retroperitoneal shows no hydronephrosis. - Cont strict I/O, avoid nephrotoxic medications. - Permacath was placed yesterday. await for OP HD chair, discussed with nephrology (2) HTN (hypertension) Current Visit: Yes Status: Chronic Assessment and Plan: continue amlodipine, hold HCTZ, lisinopril (3) Diabetes Current Visit: Yes Status: Chronic Assessment and Plan: on SSI with Accu-Cheks. (4) Hyperlipidemia Current Visit: No Status: Chronic (5) Leukocytosis Current Visit: Yes Status: Acute Visions is no fever or other symptoms. A Owusu catheter has been DC'd. We will continue to monitor. DVT Prophylaxis: Heparin SC 25 - 35 minutes - Subjective Interval history: Mr. Chavarria is a 77 year old male who presented to the ER with complaints of feeling tired. He states that ever since his PCP placed him on a new diabetic medication (Trullicity) he has felt weak. Initially this was changed as his PCP was concerned about possible harm to his kidneys. He states that he has also had diarrhea with vomiting today, as well as a loss of appetite. He denies chest and abdominal pain, dysuria, but has had decreased urine output. He has a history of chronic kidney disease stage III. In the ER His potassium was 5.4, BUN was 98 and creatinine was 8.13. He was admitted on 05/11, nephrology was consulted and started on HD on 05/12. His kidney function did not improve, became HD dependent. patient had Permacath placed today, discussed with nephrology, they are ok to discharge when OP HD chair set up. This is pending due to hepatitis core antibody result being pendi ng. Patient seen and examined today. He has no complaints. He denies any pain. He has no dyspnea. He has no nausea vomiting or abdominal pain. He has no urinary complaints. - Constitutional Vitals: Temp Pulse Resp BP Pulse Ox 98.6 F 91 18 117/63 93 05/20/18 11:03 05/20/18 11:03 05/20/18 11:03 05/20/18 11:03 05/20/18 11:03 General appearance: Present: cooperative, A&O X 3, pleasant, no acute distress, answers questions appropriately Exam: Pt is AAO x3, in NAD Neck: supple, no JVD Lungs: CTA b/l Heart: S1S2, RRR, no murmurs. Abd: Soft, NT, CVAT negative B/L Ext: No pedal edema Neuro: No focal deficit. Internal Medicine: Result - Labs CBC & Chem 7: 05/20/18 03:51 05/20/18 03:51 Labs: Short CBC 05/20/18 Range/Units 03:51 WBC 12.9 H (4.3-11.1) K/mcL Hgb 9.9 L (12.9-16.9) g/dL Hct 29.2 L (37.5-50.1) % Plt Count 250 (140-400) K/mcL BMP 05/20/18 03:51 Sodium 136 Potassium 3.5 Chloride 95 L Carbon Dioxide 29 BUN 18 Creatinine 2.06 H Glucose 156 H Calcium 7.9 L - ABG Interpretation ABG results: PT/INR, D-dimer PT 11.4 Seconds (9.4-12.1) 05/18/18 07:20 - Impressions Impressions Guidance Ultrasound 05/19/18 00:00 IMPRESSION: Successful ultrasound and fluoroscopy guided tunneled catheter placement . D/ / Clint Zuniga / Clint Zuniga Interpreting Provider: Clint Zuniga Insertion Tunneled Catheter 05/19/18 00:00 IMPRESSION: Successful ultrasound and fluoroscopy guided tunneled catheter placement . D/ / Clint Zuniga / Clint Zuniga Interpreting Provider: Clint Zuniga Consult Discharge Plan - Plan Referrals: Sobeida Dasilva, PATTERN FITTER [Primary Care Provider] - (web request sent on 05/14/18)
[2018-05-21 04:53] LABS: Basophils # 0.1 K/mcL (0.0-0.2); Basophils % 0.4 %; Eosinophils # 0.2 K/mcL (0.0-0.6); Eosinophils % 1.3 %; Hematocrit 29.6 % (37.5-50.1); Hemoglobin 9.8 g/dL (12.9-16.9); Immature Granulocytes % 0.9 % (0-4); Lymphocytes # 1.7 K/mcL (0.6-4.6); Lymphocytes % 9.8 %; Mean Corpuscular HGB Conc 33.1 g/dL (31.6-35.5); Mean Corpuscular Hemoglobin 31.5 pg (28.0-33.3); Mean Corpuscular Volume 95.2 fL (83.0-100.0); Monocytes # 1.6 K/mcL (0.0-1.3); Monocytes % 9.1 %; Neutrophils # 13.4 K/mcL (1.6-8.9); Platelet Count 272 K/mcL (140-400); Red Blood Count 3.11 M/mcL (4.19-5.50); Red Cell Distribution Width 11.6 % (11.5-14.5); Segmented Neutrophils % 78.5 %
[2018-05-21 05:10] LABS: Calcium 8.1 mg/dL (8.6-10.3); Potassium 3.4 mEq/L (3.5-5.1)
[2018-05-21] MEDS: *HR* Heparin 5,000 UNIT/ML VIAL SQ SCH ×2 (06:18→17:29)
[2018-05-21] MEDS ORDERED: *HR* Heparin 10,000 UNIT/10 ML VIAL IV PRN (06:53)
[2018-05-21] MEDS ORDERED: 0.9 % Sodium Chloride 250 ML IVC PRN (06:53)
[2018-05-21] MEDS ORDERED: 0.9 % Sodium Chloride 1,000 ML PRIME SCH (07:00)
[2018-05-21] MEDS ORDERED: 0.9 % Sodium Chloride 1,000 ML ONE (08:01)
--- NOTE | 2018-05-21 09:58 | Nephrology Progress Note ---
Date of Encounter: 05/21/18 Time of Encounter: 09:56 - Assessment and Plan (1) Dybtm-rf-jrzzaav kidney injury Current Visit: Yes Status: Acute HD today UOP 735 Scr 2.50, GFR 25 Getting chair time for [employer] Continue renal diet and strict I/Os Avoid nephrotoxins if possible Qualifiers: Acute renal failure type: unspecified Chronic kidney disease stage: unspecified stage Qualified Code(s): N17.9 - Acute kidney failure, unspecified; N18.9 - Chronic kidney disease, unspecified (2) Leukocytosis Current Visit: Yes Status: Acute WBC up to 17.1 from 12.9 Will draw blood cultures-HD nurse notified Qualifiers: Leukocytosis type: unspecified Qualified Code(s): D72.829 - Elevated white blood cell count, unspecified Subjective Principal diagnosis: Acute on chronic kidney injury Interval history: Patient seen and examined while in HD. States he is not feeling the best. Objective - Vital Signs Vital signs: Vital Signs Temp Pulse Resp BP Pulse Ox 05/21/18 09:30 132/67 05/21/18 09:15 140/70 05/21/18 09:00 144/66 05/21/18 08:45 144/62 05/21/18 08:30 146/63 05/21/18 08:15 143/66 05/21/18 08:00 97.7 F 18 146/69 05/21/18 03:31 97.7 F 88 14 129/58 98 05/21/18 00:02 98.2 F 82 16 113/49 95 05/20/18 20:20 98.4 F 82 16 124/66 99 05/20/18 15:38 99.0 F 91 17 124/64 100 05/20/18 11:03 98.6 F 91 18 117/63 93 Intake and Output 05/20/18 05/21/18 05/21/18 23:59 07:59 15:59 Intake Total 600 / 600 Output Total 310 / 310 650 / 650 Balance -310 / -310 -650 / -650 600 / 600 Intake: Oral 0 / 0 Intake, Rinseback and Flushes 600 / 600 Output: Urine 310 / 310 650 / 650 Other: # Voids 2 Blood Glucose* 284 Hemodialysis Net Fluid Removed 1105 (mL) - General Appearance General appearance: Present: well-developed, well-nourished EENT: Present: ATNC, mucous membranes moist, hearing intact, vision intact Neck: Present: supple Respiratory: Present: clear Cardiology: Present: no edema, normal S1, normal S2 Dialysis Vascular Access: Venous Catheter Gastrointestinal: Present: no tenderness, no guarding Integumentary: Present: cool/clammy Neurologic: Present: alert and oriented x3 Psychiatric: Present: mood/affect appropriate, cooperative - Lab 05/21/18 04:06 05/21/18 04:06 Most recent lab results Calcium 8.1 mg/dL (8.6-10.3) L 05/21/18 04:06 Phosphorus 3.0 mg/dL (2.7-4.5) 05/14/18 04:54 Urine Creatinine 92 mg/dL 05/11/18 21:35 Urine Sodium 24.2 mEq/L 05/11/18 21:35 Consult Discharge Plan - Plan Referrals: Sobeida Dasilva, OPTICAL GOODS DRILL OPERATOR [Primary Care Provider] - (web request sent on 05/14/18)
[2018-05-21] MEDS: Insulin LISPRO 300 UNITS/3 ML VIAL SQ SCH ×4 (10:26→21:16)
--- NOTE | 2018-05-21 10:31 | Internal Med Progress Note ---
Hospitalist Progress Note - Encounter Date of Encounter: 05/21/18 Time of Encounter: 10:28 - Subjective Interval History: Patient seen and examined this morning in dialysis. Complain of feeling sick, sweating and chest discomfort. Denies chest pain, sob, N/V/D. No overnight events. Tachycardic on monitor with HR High 90s and 100s. - Exam Vitals: Temp Pulse Resp BP Pulse Ox 97.7 F 88 18 132/67 98 05/21/18 08:00 05/21/18 03:31 05/21/18 08:00 05/21/18 09:30 05/21/18 03:31 Exam: Gen: AAO x3, in NAD. Diaphoretic HEENT: NC/AT, PERRL Neck: supple, no JVD Lungs: CTA b/l Heart: S1S2, RRR, tachycardic, no MRG Abd: Soft, NT, CVAT negative B/L Ext: No pedal edema - Assessment and Plan (1) HTN (hypertension) Current Visit: Yes Status: Chronic (2) Diabetes Current Visit: Yes Status: Chronic (3) DVT prophylaxis Current Visit: No Status: Acute (4) Znmvi-tm-ugwropz kidney injury Current Visit: Yes Status: Acute (5) Leukocytosis Current Visit: Yes Status: Acute - Summary of Assessment and Plan Summary of Assessment and Plan: Sepsis - Leukocytosis, Tachycardic. afebrile but diaphoretic. Significant increased in leukocytosis - f/u CXR and UA. - Line infection also in differential - Will collect blood culture from peripheral IV and dialysis access. - Will start empiric Vancomycin and Zosyn. Chest pressure - Vague symptoms of feeling sick. Without radiation. - EKG unchanged - f/u CXR and troponin Quvjk-uj-fcpnhxd kidney injury - Nephro on case. HD today - US retroperitoneal shows no hydronephrosis. - c/w strict I/O, avoid nephrotoxic medications. - Has Permacath was placed yesterday. - Hep serology negative. HTN continue amlodipine, hold HCTZ, lisinopril HLD - c/w atorvastatin Diabetes - on SSI with Accu-Cheks. - Time Spent with Patient Total time spent is greater than 50% in coordination of care (as documented) at patient's floor/unit and/or counseling patient: Internal Medicine: Result - Labs CBC & Chem 7: 05/21/18 04:06 05/21/18 04:06 Labs: Short CBC 05/21/18 Range/Units 04:06 WBC 17.1 H (4.3-11.1) K/mcL Hgb 9.8 L (12.9-16.9) g/dL Hct 29.6 L (37.5-50.1) % Plt Count 272 (140-400) K/mcL Neutrophils # 13.4 H (1.6-8.9) K/mcL BMP 05/21/18 04:06 Sodium 134 L Potassium 3.4 L Chloride 95 L Carbon Dioxide 24 BUN 27 H Creatinine 2.50 H Glucose 220 H Calcium 8.1 L - ABG Interpretation ABG results: PT/INR, D-dimer PT 11.4 Seconds (9.4-12.1) 05/18/18 07:20 Consult Discharge Plan - Plan Referrals: Sobeida Dasilva, [employer] AX DEVELOPER [Primary Care Provider] - (web request sent on 05/14/18) (1) HTN (hypertension) Qualifiers: Hypertension type: essential hypertension Qualified Code(s): I10 - Essential (primary) hypertension (2) Diabetes Qualifiers: Diabetes mellitus type: type 2 Diabetes mellitus mcc insulin use: without mcc use Diabetes mellitus complication status: without complication Qualified Code(s): E11.9 - Type 2 diabetes mellitus without complications (4) Fpwzc-es-zcusncg kidney injury Qualifiers: Acute renal failure type: unspecified Chronic kidney disease stage: unspecified stage Qualified Code(s): N17.9 - Acute kidney failure, unspecified; N18.9 - Chronic kidney disease, unspecified (5) Leukocytosis Qualifiers: Leukocytosis type: unspecified Qualified Code(s): D72.829 - Elevated white blood cell count, unspecified
[2018-05-21] MEDS ORDERED: Vancomycin 1 EACH in 0.9 % Sodium Chloride 250 ML IVPB SCH (11:00)
[2018-05-21] MEDS: Piperacillin/Tazobactam 3.375 GM in 0.9 % Sodium Chloride Mini Bag 100 ML IVPB SCH ×2 (12:27→21:15)
[2018-05-21] MEDS: amLODIPine 5 MG TABLET PO SCH (12:27)
--- NOTE | 2018-05-21 20:55 | Electrocardiograph Report ---
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
[2018-05-22 02:55] LABS: Basophils # 0.1 K/mcL (0.0-0.2); Basophils % 0.3 %; Eosinophils # 0.2 K/mcL (0.0-0.6); Eosinophils % 1.3 %; Hematocrit 26.8 % (37.5-50.1); Immature Granulocytes % 0.9 % (0-4); Lymphocytes # 1.5 K/mcL (0.6-4.6); Lymphocytes % 9.8 %; Mean Corpuscular HGB Conc 33.6 g/dL (31.6-35.5); Mean Corpuscular Hemoglobin 31.9 pg (28.0-33.3); Monocytes # 1.3 K/mcL (0.0-1.3); Monocytes % 8.8 %; Neutrophils # 11.8 K/mcL (1.6-8.9); Platelet Count 247 K/mcL (140-400); Red Blood Count 2.82 M/mcL (4.19-5.50); Red Cell Distribution Width 11.5 % (11.5-14.5); Segmented Neutrophils % 78.9 %
[2018-05-22 03:02] LABS: Calcium 7.9 mg/dL (8.6-10.3); Potassium 3.6 mEq/L (3.5-5.1)
[2018-05-22] MEDS: Piperacillin/Tazobactam 3.375 GM in 0.9 % Sodium Chloride Mini Bag 100 ML IVPB SCH ×3 (03:33→21:59)
[2018-05-22] MEDS: *HR* Heparin 5,000 UNIT/ML VIAL SQ SCH ×2 (03:34→17:07)
--- NOTE | 2018-05-22 07:29 | Nephrology Progress Note ---
Date of Encounter: 05/22/18 Time of Encounter: 11:00 - Assessment and Plan (1) Gjijs-rm-ztoshqy kidney injury Current Visit: Yes Status: Acute Prolonged hospitalization and it's not clear why he has been admitted so long, but nevertheless, he has dialysis-dependent JEFFREY s/p HD just yesterday. So no HD indicated today. He is okay to discharge anytime such as today, from a nephrology perspective. He already had an outpt HD chair arranged, during which he will be monitored in hopes to wean off dialysis. The HD chair has been arranged at [facility], [place]. I even contacted them today and placed HD orders: M/F 3.25hr, 3K, and weekly SCr with the goal of weaning off HD soon, if able. I spent about 35 min involved in his care including review of labs, vitals, med list, progress notes, prior imaging, and contacting other providers and making logistical arrangements for dialysis for the complex individual for his E/M and MDM. Continue renal diet and strict I/Os; Avoid nephrotoxins if possible Qualifiers: Acute renal failure type: unspecified Chronic kidney disease stage: unspecified stage Qualified Code(s): N17.9 - Acute kidney failure, unspecified; N18.9 - Chronic kidney disease, unspecified (2) Leukocytosis Current Visit: Yes Status: Acute Appears asymptomatic. Qualifiers: Leukocytosis type: unspecified Qualified Code(s): D72.829 - Elevated white blood cell count, unspecified Subjective Principal diagnosis: Acute on chronic kidney injury Interval history: Pt was seen/examined earlier today. He did not affirm N/V/D or new major complaints. He could not say why he's still hospitalized. Objective - Vital Signs Vital signs: Vital Signs Temp Pulse Resp BP Pulse Ox 05/22/18 06:59 98.7 F 84 16 123/57 94 05/22/18 04:32 98.7 F 89 17 106/63 93 05/22/18 00:17 98.6 F 89 17 111/58 95 05/21/18 20:09 98.6 F 89 17 125/65 95 05/21/18 17:28 98.2 F 98 20 119/68 96 05/21/18 12:11 97.6 F 93 16 120/74 98 05/21/18 11:56 98.0 F 20 133/61 05/21/18 11:30 125/54 05/21/18 11:15 129/58 05/21/18 11:00 126/63 05/21/18 10:45 113/59 05/21/18 10:30 113/59 05/21/18 10:15 131/64 05/21/18 10:00 128/64 05/21/18 09:45 129/70 05/21/18 09:30 132/67 05/21/18 09:15 140/70 05/21/18 09:00 144/66 05/21/18 08:45 144/62 05/21/18 08:30 146/63 05/21/18 08:15 143/66 05/21/18 08:00 97.7 F 18 146/69 Intake and Output 05/21/18 05/21/18 05/22/18 15:59 23:59 07:59 Intake Total 850 / 850 100 / 100 100 / 100 Output Total 1291 / 1291 100 / 100 550 / 550 Balance -441 / -441 0 / 0 -450 / -450 Intake: IV Fluids 250 / 250 100 / 100 100 / 100 Zosyn 3.375 GM In 0.9 % Sodium 100 / 100 100 / 100 Chloride (Mini-Bag +) 100 ML @ 25 mls/hr IVPB Q8H [facility] Rx#: [id number] Vancocin 1,250 MG In 0.9 % 250 / 250 Sodium Chloride 250 ML @ 166.67 mls/hr IVPB ONCE ONE Rx#: [id number] Oral 0 / 0 Intake, Rinseback and Flushes 600 / 600 Output: Urine 0 / 0 100 / 100 550 / 550 Total Dialysis (HD) Output 1291 / 1291 Other: Weight 82.5 kg Blood Glucose* 194 246 207 Hemodialysis Net Fluid Removed 691 (mL) Patient Weight 05/22/18 23:59 Weight 82.5 kg - General Appearance General appearance: Present: well-developed, well-nourished, appears started age EENT: Present: ATNC, mucous membranes moist Neck: Present: supple Respiratory: Present: clear Cardiology: Present: no edema, regular rate, regular rhythm, normal S1 Dialysis Vascular Access: Venous Catheter (Right Tunneled HD catheter with the dressing C/D/I) Gastrointestinal: Present: normoactive bowel sounds, no guarding Integumentary: Present: warm and dry Neurologic: Present: no asterixis Musculoskeletal: Present: deformities (right hemiatrophy noted (chronic)), no clubbing Psychiatric: Present: mood/affect appropriate, cooperative - Lab 05/22/18 02:20 05/22/18 02:20 Most recent lab results Calcium 7.9 mg/dL (8.6-10.3) L 05/22/18 02:20 Phosphorus 3.0 mg/dL (2.7-4.5) 05/14/18 04:54 Urine Creatinine 92 mg/dL 05/11/18 21:35 Urine Sodium 24.2 mEq/L 05/11/18 21:35 Consult Discharge Plan - Plan Referrals: Sobeida Dasilva, GREEN MEAT PACKER [Primary Care Provider] - (web request sent on 05/14/18)
[2018-05-22] MEDS: amLODIPine 5 MG TABLET PO SCH (08:58)
[2018-05-22] MEDS: Insulin LISPRO 300 UNITS/3 ML VIAL SQ SCH ×4 (08:59→21:49)
--- NOTE | 2018-05-22 11:47 | Internal Med Progress Note ---
Hospitalist Progress Note - Encounter Date of Encounter: 05/22/18 Time of Encounter: 11:46 - Subjective Interval History: Patient seen and examined this morning. Feeling better. No chest pain, sob, N/V/D. No overnight events. Occasionally HR over 90s. Afebirle. - Exam Vitals: Temp Pulse Resp BP Pulse Ox 98.7 F 93 20 110/45 96 05/22/18 11:00 05/22/18 11:00 05/22/18 11:00 05/22/18 11:00 05/22/18 11:00 Exam: Gen: AAO x3, in NAD. HEENT: NC/AT, PERRLA Neck: supple, no JVD Lungs: CTA b/l Heart: S1S2, RRR, HR in 90s, no MRG Abd: Soft, NT, CVAT negative B/L Ext: No pedal edema. - Assessment and Plan (1) HTN (hypertension) Current Visit: Yes Status: Chronic (2) Diabetes Current Visit: Yes Status: Chronic (3) DVT prophylaxis Current Visit: No Status: Acute (4) Vbffe-do-ohzcqzi kidney injury Current Visit: Yes Status: Acute (5) Leukocytosis Current Visit: Yes Status: Acute - Summary of Assessment and Plan Summary of Assessment and Plan: Sepsis - Leukocytosis, Tachycardic. afebrile but diaphoretic. Significant increased in leukocytosis - CXR unremarkable. UA not collected. Ask nurse to collect UA. - Line infection also in differential - blood culture 05/21 without any growth - c/w empiric Vancomycin and Zosyn. Chest pressure - Vague symptoms of feeling sick. Without radiation. - EKG unchanged - CXR and troponin unremarkable Xoclq-dy-eevmtim kidney injury - Nephro on case. s/p permacath 05/19. HD per nephro - US retroperitoneal shows no hydronephrosis. - c/w strict I/O, avoid nephrotoxic medications. - Hep serology negative. HTN continue amlodipine, hold HCTZ, lisinopril HLD - c/w atorvastatin Diabetes - on SSI with Accu-Cheks. - Time Spent with Patient Total time spent is greater than 50% in coordination of care (as documented) at patient's floor/unit and/or counseling patient: Internal Medicine: Result - Labs CBC & Chem 7: 05/22/18 02:20 05/22/18 02:20 Labs: Short CBC 05/22/18 Range/Units 02:20 WBC 14.9 H (4.3-11.1) K/mcL Hgb 9.0 L (12.9-16.9) g/dL Hct 26.8 L (37.5-50.1) % Plt Count 247 (140-400) K/mcL Neutrophils # 11.8 H (1.6-8.9) K/mcL BMP 05/22/18 02:20 Sodium 134 L Potassium 3.6 Chloride 95 L Carbon Dioxide 29 BUN 17 Creatinine 1.92 H Glucose 216 H Calcium 7.9 L Cardiac Enzymes 05/21/18 05/21/18 Range/Units 10:38 16:35 Troponin I 0.03 < 0.03 (< 0.04) ng/mL - ABG Interpretation ABG results: PT/INR, D-dimer PT 11.4 Seconds (9.4-12.1) 05/18/18 07:20 - Impressions Impressions Chest X-Ray 05/21/18 10:24 IMPRESSION: No acute cardiopulmonary findings. 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
[2018-05-22 13:41] LABS: Bilirubin,Urine Negative (Negative); Blood,Urine Negative (Negative); Clarity,Urine Clear (Clear); Color,Urine Yellow (Yellow); Glucose,Urine (UA) 500 mg/dL (Normal); Ketones,Urine Trace mg/dL (Negative); Leukocyte Esterase,Urine Small (Negative); Nitrite,Urine Negative (Negative); Protein,Urine 30 mg/dL (Neg-Trace); Specific Gravity,Urine 1.005 (1.010-1.025); Urobilinogen,Urine Normal (Normal)
[2018-05-22 13:44] LABS: Hyaline Casts,Urine None Seen per lpf (None-Few); Squamous Epithelial Cell,Urine Moderate per lpf (None-Few); WBC,Urine 15-30 per hpf (0-3)
[2018-05-22 14:01] LABS: Bacteria,Urine Few per hpf (None-Few); RBC,Urine 0-3 per hpf (0-3)
[2018-05-22] MEDS ORDERED: Lactulose Oral Soln 20 GM/30 ML UDC PO ONE (17:02)
[2018-05-22 18:18] LABS: Adenovirus Not Detected (Not Detect); Bordetella Pertussis Not Detected (Not Detect); Chlamydophila pneumoniae Not Detected (Not Detect); Coronavirus 229E Not Detected (Not Detect); Coronavirus HKU1 Not Detected (Not Detect); Coronavirus NL63 Not Detected (Not Detect); Coronavirus OC43 Not Detected (Not Detect); Human Metapneumovirus Not Detected (Not Detect); Human Rhinovirus/Enterovirus Not Detected (Not Detect); Influenza A Subtype 2009 H1 Not Detected (Not Detect); Influenza A Untypeable Not Detected (Not Detect); Influenza B Not Detected (Not Detect); Mycoplasma pneumoniae Not Detected (Not Detect); Parainfluenza Virus 1 Not Detected (Not Detect); Parainfluenza Virus 2 Not Detected (Not Detect); Parainfluenza Virus 3 Not Detected (Not Detect); Parainfluenza Virus 4 Not Detected (Not Detect); Respiratory Syncytial Virus Not Detected (Not Detect)
[2018-05-23 05:03] LABS: Basophils # 0.1 K/mcL (0.0-0.2); Basophils % 0.4 %; Eosinophils # 0.2 K/mcL (0.0-0.6); Eosinophils % 1.3 %; Hematocrit 25.5 % (37.5-50.1); Hemoglobin 8.7 g/dL (12.9-16.9); Immature Granulocytes % 1.3 % (0-4); Lymphocytes # 1.3 K/mcL (0.6-4.6); Lymphocytes % 9.1 %; Mean Corpuscular HGB Conc 34.1 g/dL (31.6-35.5); Mean Corpuscular Hemoglobin 32.1 pg (28.0-33.3); Mean Corpuscular Volume 94.1 fL (83.0-100.0); Mean Platelet Volume 11.4 fL (9.4-12.4); Monocytes # 1.4 K/mcL (0.0-1.3); Neutrophils # 11.1 K/mcL (1.6-8.9); Platelet Count 267 K/mcL (140-400); Red Blood Count 2.71 M/mcL (4.19-5.50); Red Cell Distribution Width 11.6 % (11.5-14.5); Segmented Neutrophils % 77.9 %
[2018-05-23 05:24] LABS: Potassium 3.5 mEq/L (3.5-5.1)
[2018-05-23] MEDS: *HR* Heparin 5,000 UNIT/ML VIAL SQ SCH ×2 (05:57→16:42)
[2018-05-23] MEDS: Piperacillin/Tazobactam 3.375 GM in 0.9 % Sodium Chloride Mini Bag 100 ML IVPB SCH (05:58)
--- NOTE | 2018-05-23 07:34 | Nephrology Progress Note ---
Date of Encounter: 05/23/18 Time of Encounter: 08:35 - Assessment and Plan (1) Kfwgq-ba-egiuvsh kidney injury Current Visit: Yes Status: Acute Prolonged hospitalization and it's not clear why he has been admitted so long: He is okay to discharge anytime from a nephrology perspective. He already had an outpt HD chair arranged, during which he will be monitored in hopes to wean off dialysis. Last HD was and renal function not severe enough for HD today (Friday). If he remains hospitalized then would tentatively plan for dialysis on Friday. The HD chair has been arranged at [facility]. I even contacted them today and placed HD orders: M/F 3.25hr, 3K, and weekly SCr with the goal of weaning off HD soon, if able. Continue renal diet and strict I/Os; Avoid nephrotoxins if possible. I will be available tomorrow (Friday) if needed. My colleague will be on-call starting on Friday. Thank you. Qualifiers: Acute renal failure type: unspecified Chronic kidney disease stage: un specified stage Qualified Code(s): N17.9 - Acute kidney failure, unspecified; N18.9 - Chronic kidney disease, unspecified Subjective Principal diagnosis: Acute on chronic kidney injury Interval history: Pt was seen/examined and he did reported some ongoing discomfort at the site of the Permacath but no F/C or bleeding / ozzing was reported. He did not affirm N/V/D or new major complaints. Objective - Vital Signs Vital signs: Vital Signs Temp Pulse Resp BP Pulse Ox 05/23/18 06:50 99.4 F 84 18 129/64 97 05/23/18 04:43 98.7 F 86 17 129/63 96 05/23/18 00:35 98.8 F 85 16 118/63 98 05/22/18 21:32 97.6 F 92 17 119/64 95 05/22/18 16:28 99.6 F 95 16 121/66 97 05/22/18 11:00 98.7 F 93 20 110/45 96 Intake and Output 05/22/18 05/22/18 05/23/18 15:59 23:59 07:59 Intake Total 1190 / 1190 340 / 340 100 / 100 Output Total 220 / 220 300 / 300 650 / 650 Balance 970 / 970 40 / 40 -550 / -550 Intake: IV Fluids 450 / 450 100 / 100 100 / 100 Zosyn 3.375 GM In 0.9 % Sodium 100 / 100 100 / 100 100 / 100 Chloride (Mini-Bag +) 100 ML @ 25 mls/hr IVPB Q8H [facility] Rx#: [id number] Vancocin 1,250 MG In 0.9 % 250 / 250 Sodium Chloride 250 ML @ 166. 667 mls/hr IVPB ONCE ONE Rx#: [id number] Vancocin 250 MG In 0.9 % Sodium 100 / 100 Chloride 100 ML @ 100 mls/hr IVPB ONCE ONE Rx#:[id number] Oral 740 / 740 240 / 240 Output: Urine 220 / 220 300 / 300 650 / 650 Other: Meal Breakfast Percent of Meal Consumed 100% Weight 82 kg Blood Glucose* 350 345 268 Patient Weight 05/23/18 23:59 Weight 82 kg - General Appearance Exam: General appearance: Present: well-developed, well-nourished, appears started age EENT: Present: ATNC, mucous membranes moist Neck: Present: supple Respiratory: Present: clear Cardiology: Present: no edema, regular rate, regular rhythm, normal S1 Dialysis Vascular Access: Venous Catheter (Right Tunneled HD catheter with the dressing C/D/I) Gastrointestinal: Present: normoactive bowel sounds, no guarding Integumentary: Present: warm and dry Neurologic: Present: no asterixis Musculoskeletal: Present: deformities (right hemiatrophy noted (chronic)), no clubbing Psychiatric: Present: mood/affect appropriate, cooperative - Lab 05/23/18 04:17 05/23/18 04:17 Most recent lab results Calcium 8.0 mg/dL (8.6-10.3) L 05/23/18 04:17 Phosphorus 3.0 mg/dL (2.7-4.5) 05/14/18 04:54 Urine Creatinine 92 mg/dL 05/11/18 21:35 Urine Sodium 24.2 mEq/L 05/11/18 21:35 Consult Discharge Plan - Plan Referrals: Sobeida Dasilva, ACCOUNTING PROFESSIONAL [Primary Care Provider] - (web request sent on 05/14/18)
[2018-05-23] MEDS: amLODIPine 5 MG TABLET PO SCH (08:47)
[2018-05-23] MEDS: Insulin LISPRO 300 UNITS/3 ML VIAL SQ SCH ×4 (08:48→20:44)
--- NOTE | 2018-05-23 09:44 | Internal Med Progress Note ---
Hospitalist Progress Note - Encounter Date of Encounter: 05/23/18 Time of Encounter: 09:42 - Subjective Interval History: Patient seen and examined this morning. No overnight events. Feeling better. No fever, chills, N/V/D, chest pain, sob. Had BM yesterday. No urinary complains. - Exam Vitals: Temp Pulse Resp BP Pulse Ox 99.4 F 84 18 129/64 97 05/23/18 06:50 05/23/18 06:50 05/23/18 06:50 05/23/18 06:50 05/23/18 06:50 Exam: Gen: AAO x3, in NAD. HEENT: NC/AT, PERRLA Neck: supple, no JVD Lungs: CTA b/l Heart: S1S2, RRR, no MRG Abd: Soft, NT, CVAT negative B/L Ext: No pedal edema. - Assessment and Plan (1) HTN (hypertension) Current Visit: Yes Status: Chronic (2) Diabetes Current Visit: Yes Status: Chronic (3) DVT prophylaxis Current Visit: No Status: Acute (4) Aryqu-zt-xyerbjm kidney injury Current Visit: Yes Status: Acute (5) Leukocytosis Current Visit: Yes Status: Acute - Summary of Assessment and Plan Summary of Assessment and Plan: Sepsis - Will SIRS criteria( Leukocytosis, Tachycardic). now resolved. - CXR unremarkable. Blood and Urine culture no growth to doae. - Line infection also in differential - RIP Unremarkable. KUB unremarkable - No sign/symptoms of meningitis - Will stop antibiotics and monitor. Received 3 days of Vancomcin and zosyn. Chest pressure - Vague symptoms of feeling sick. Without radiation. - EKG unchanged - CXR and troponin unremarkable - Now resolved. Jjaou-wn-yzkiwxf kidney injury - Nephro on case. s/p permacath 05/19. HD per nephro - US retroperitoneal shows no hydronephrosis. - c/w strict I/O, avoid nephrotoxic medications. - Hep serology negative. - Has chair time for dialysis setup. HTN - c/w amlodipine. Resume HCTZ, lisinopril HLD - c/w atorvastatin Diabetes - on SSI with Accu-Cheks. - Time Spent with Patient Total time spent is greater than 50% in coordination of care (as documented) at patient's floor/unit and/or counseling patient: Internal Medicine: Result - Labs CBC & Chem 7: 05/23/18 04:17 05/23/18 04:17 Labs: Short CBC 05/23/18 Range/Units 04:17 WBC 14.2 H (4.3-11.1) K/mcL Hgb 8.7 L (12.9-16.9) g/dL Hct 25.5 L (37.5-50.1) % Plt Count 267 (140-400) K/mcL Neutrophils # 11.1 H (1.6-8.9) K/mcL BMP 05/23/18 04:17 Sodium 134 L Potassium 3.5 Chloride 97 L Carbon Dioxide 27 BUN 22 Creatinine 2.37 H Glucose 286 H Calcium 8.0 L Urine 05/22/18 Range/Units 12:17 Urine Color Yellow (Yellow) Urine Clarity Clear (Clear) Urine pH 6.0 (5.0-8.0) pH Units Ur Specific [place] 1.005 L (1.010-1.025) Urine Protein 30 H (Neg-Trace) mg/dL Urine Glucose (UA) 500 H (Normal) mg/dL - ABG Interpretation ABG results: PT/INR, D-dimer PT 11.4 Seconds (9.4-12.1) 05/18/18 07:20 - Impressions Impressions KUB X-Ray 05/22/18 17:02 IMPRESSION: 1. Unremarkable bowel gas pattern. D/ / 05/22/2018 22:57:05 Maria De Jesus Berry MD / [facility] Interpreting Provider: Maria De Jesus Berry MD Consult Discharge Plan - Plan Referrals: Sobeida Dasilva, BUSINESS SERVICES SPECIALIST SALES [Primary Care Provider] - (web request sent on 05/14/18) (1) HTN (hypertension) Qualifiers: Hypertension type: essential hypertension Qualified Code(s): I10 - Essential (primary) hypertension (2) Diabetes Qualifiers: Diabetes mellitus type: type 2 Diabetes mellitus mcc insulin use: without mcc use Diabetes mellitus complication status: without complication Qualified Code(s): E11.9 - Type 2 diabetes mellitus without complications (4) Gmxcw-ve-jwdvjdv kidney injury Qualifiers: Acute renal failure type: unspecified Chronic kidney disease stage: unspecified stage Qualified Code(s): N17.9 - Acute kidney failure, unspecified; N18.9 - Chronic kidney disease, unspecified (5) Leukocytosis Qualifiers: Leukocytosis type: unspecified Qualified Code(s): D72.829 - Elevated white blood cell count, unspecified
[2018-05-23] MEDS ORDERED: Aminoglycoside Consult 1 EACH MC ONE (16:14)
[2018-05-24] MEDS ORDERED: Insulin LISPRO 300 UNITS/3 ML VIAL SQ ONE (01:03)
[2018-05-24 03:28] LABS: Basophils # 0.1 K/mcL (0.0-0.2); Basophils % 0.5 %; Eosinophils # 0.3 K/mcL (0.0-0.6); Eosinophils % 1.7 %; Hematocrit 24.8 % (37.5-50.1); Hemoglobin 8.3 g/dL (12.9-16.9); Immature Granulocytes % 1.9 % (0-4); Lymphocytes # 1.7 K/mcL (0.6-4.6); Lymphocytes % 11.4 %; Mean Corpuscular HGB Conc 33.5 g/dL (31.6-35.5); Mean Corpuscular Hemoglobin 31.8 pg (28.0-33.3); Mean Platelet Volume 10.9 fL (9.4-12.4); Monocytes # 1.6 K/mcL (0.0-1.3); Monocytes % 10.4 %; Neutrophils # 11.3 K/mcL (1.6-8.9); Platelet Count 293 K/mcL (140-400); Red Blood Count 2.61 M/mcL (4.19-5.50); Red Cell Distribution Width 11.6 % (11.5-14.5); Segmented Neutrophils % 74.1 %
[2018-05-24 03:45] LABS: Calcium 8.2 mg/dL (8.6-10.3); Potassium 3.3 mEq/L (3.5-5.1)
[2018-05-24] MEDS: *HR* Heparin 5,000 UNIT/ML VIAL SQ SCH (05:53)
[2018-05-24] MEDS: amLODIPine 5 MG TABLET PO SCH (07:30)
[2018-05-24] MEDS: Insulin LISPRO 300 UNITS/3 ML VIAL SQ SCH ×2 (07:30→11:45)
[2018-05-24 07:36] VITALS: BP 116/55
--- NOTE | 2018-05-24 09:57 | Discharge Summary ---
- NOTES TO OUTPATIENT PROVIDER Notes to Outpatient Provider: Please follow patient's CBC for leukocytosis within as well as hemoglobin 1-2 weeks. Monitor for any focal signs of infection. Orders not resulted at time of discharge: Pending orders 05/21/18 16:50 Culture,Blood [BC] Routine Culture,Blood [BC] Routine 05/25/18 04:00 BMP [Basic Metabolic Panel] AM 0400 Date of Encounter: 05/24/18 Time of Encounter: 09:55 - Discharge Diagnosis (1) HTN (hypertension) Priority: Secondary Status: Chronic Qualifiers: Hypertension type: essential hypertension Qualified Code(s): I10 - Essential (primary) hypertension (2) Diabetes Priority: Secondary Status: Chronic Qualifiers: Diabetes mellitus type: type 2 Diabetes mellitus senior care insulin use: without intermediate accountant use Diabetes mellitus complication status: without complication Qualified Code(s): E11.9 - Type 2 diabetes mellitus without complications (3) DVT prophylaxis Priority: Secondary Status: Acute (4) Xgvqf-hm-huvcjhm kidney injury Priority: Primary Status: Acute Qualifiers: Acute renal failure type: unspecified Chronic kidney disease stage: unspecified stage Qualified Code(s): N17.9 - Acute kidney failure, unspecified; N18.9 - Chronic kidney disease, unspecified (5) Leukocytosis Priority: Secondary Status: Acute Qualifiers: Leukocytosis type: unspecified Qualified Code(s): D72.829 - Elevated white blood cell count, unspecified (6) CKD (chronic kidney disease) Priority: Primary Status: Acute Qualifiers: Qualified Code(s): N18.6 - End stage renal disease; Z99.2 - Dependence on renal dialysis Hospital course: Mr. 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 Was found to be in JEFFREY on CKD. Also had leukocytosis on presentation which was thought to be reactive. Patient's retrograde ultrasound did not show hydronephrosis. Patient has to be started on dialysis. he became dialysis dependent. This was thought to be likely from ATN with combination of vomiting diarrhea and concomitant medications including HCTZ, lisinopril and metformin. Patient's hyperkalemia and azotemia resolved with dialysis. Patient had a permacath placed. His leukocytosis initially resolved however during one of the dialysis and he started having chills, nausea and perspiration and also had leukocytosis that morning. Suspicion of infection and possibly bacteremia arose. Blood cultures urine cultures were obtained which came out to be negative. Cultures from central access came negative. Chest x-ray unremarkable as well as UA. Patient's KUB was also unremarkable. His leukocytosis gradually trended down. Patient afebrile the entire time. Hemodynamically stable otherwise. Patient has his outpatient dialysis set up. Patient will be discharged as his progressing well even though he still has some leukocytosis and anemia. Patient would need to follow up with PCP within one week to continue monitoring it. His diabetes medications were stopped except pioglitazone. Started on Levemir and sliding scale insulin and was given education of the use it. - Time Spent with Patient Total time spent providing and/or coordinating discharge services: Greater than 30 minutes (45) - Discharge Medications Prescriptions: Insulin DETEMIR [Levemir Flextouch] 15 unit SQ HS 30 Days #1 insuln.pen Insulin LISPRO [HumaLOG] See Protocol SQ TIDAC #1 vial Home Medications: Pioglitazone [Actos] 45 mg PO DAILY 11/13/15 [History] Ferrous Sulfate [Iron] 325 mg PO DAILY 03/08/16 [History] GlipiZIDE XL (24 HR) [Glucotrol XL] 10 mg PO BID 09/05/17 [History] Lisinopril [Zestril] 10 mg PO DAILY 09/05/17 [History] Multivit-Min/FA/Lycopen/Lutein [A Thru Z Select Multivit Tab] 1 tab PO DAILY 09/05/17 [History] Pravastatin Sodium [Pravachol] 80 mg PO DAILY 09/05/17 [History] hydroCHLOROthiazide [Hydrochlorothiazide] 12.5 mg PO DAILY 09/05/17 [History] amLODIPine [Norvasc] 5 mg PO DAILY 05/11/18 [History] Insulin DETEMIR [Levemir Flextouch] 15 unit SQ HS 30 Days #1 insuln.pen 05/24/18 [Rx] Insulin LISPRO [HumaLOG] See Protocol SQ TIDAC #1 vial 05/24/18 [Rx] Allergies/Adverse Reactions: Allergy/AdvReac Type Severity Reaction Status Date / Time No Known Allergies Allergy Verified 05/11/18 19:41 Date of admission: 05/12/18 01:30 Primary care physician: Sobeida Dasilva CNP Consults: 05/11/18 21:20 Consult to Nephrology [CONS] Stat Consulting Provider: Kidney Margarita/JT/SANKET/NICOLE Reason for Consult: Acute on Chronic Kidney disease Call Completed: Yes 05/12/18 06:46 Consult to Interventional Radiology [CONS] Routine Consulting Provider: Radiology Interventional Cols Reason for Consult: Please evaluate for placement of a temporary HD catheter Call Completed: No 05/12/18 07:00 Consult to Dialysis [CONS] ONCE 05/13/18 07:30 Consult to Dialysis [CONS] ONCE 05/14/18 08:00 Consult to Dialysis [CONS] ONCE 05/16/18 07:00 Consult to Dialysis [CONS] ONCE 05/16/18 10:34 Consult to Open Source Developer [CONS] Routine Reason for SW Consult: Please arrange for an outpt HD chair for "dialysis- dependent JEFFREY" 05/18/18 05:00 Consult to Interventional Radiology [CONS] Routine Consulting Provider: Radiology Interventional Cols Reason for Consult: Please evaluate for placement of a Permacath on Friday for dialysis-dependent JEFFREY Call Completed: No 05/19/18 08:00 Consult to Dialysis [CONS] ONCE 05/20/18 10:48 Consult to Physical Therapy [CONS] Routine Comment: Evaluate, develop and implement POC Reason for Consult: Increased activity Does patient have active BEDREST order?: No Is patient medically & hemodynamically stable?: Yes 05/21/18 06:53 Consult to Dialysis [CONS] Stat Discharging clinician: Bacilio Herrera Constitutional Vitals: Temp Pulse Resp BP Pulse Ox 98.0 F 87 18 116/55 92 05/24/18 07:35 05/24/18 07:35 05/24/18 07:35 05/24/18 07:35 05/24/18 07:35 General appearance: Present: cooperative, A&O X 3, pleasant, no acute distress, answers questions appropriately Exam: Gen: AAO x3, in NAD. HEENT: NC/AT, PERRLA Neck: supple, no JVD Lungs: CTA b/l Heart: S1S2, RRR, no MRG Abd: Soft, NT, CVAT negative B/L Ext: No pedal edema. Skin: No skin rash noted - Patient Status Disposition: Home, Self-Care Condition: Fair - Discharge Instructions Instructions: Diabetic gastroparesis (DC), How to Check Your Blood Sugar (GEN), Diabetes Mellitus Type 1 in Adults (GEN), Diabetic Hypoglycemia (DC), Diabetes Mellitus Type 2 in Adults (GEN), Giving an Insulin Injection (GEN) Follow Up With: Sobeida Dasilva CNP [Primary Care Provider] - (web request sent on 05/14/18)
[2018-05-24 10:19] LABS: Albumin 3.1 g/dL (3.5-5.7); Albumin/Globulin Ratio 1.1 (1.1-2.2); Bilirubin,Direct 0.1 mg/dL (0.0-0.2); Bilirubin,Indirect 0.1 mg/dL (0.0-1.2); Bilirubin,Total 0.2 mg/dL (0.3-1.0); Globulin 2.7 g/dL (2.4-3.5); Total Protein 5.8 g/dL (6.4-8.9)
== END 2018-05-24 16:15 | disposition home or self-care (01) | DRG 682 ==
LOC: EMEROOARM 19:35 → 2ANU 19:35 → SUATTDRO 05-12 01:30
PROVIDERS: ADMIT Pediatrics; ATTEND Internal Medicine
PROC: IRPERMA (2018-05-19 13:00)

== ENCOUNTER 2019-04-04 01:57 | Observation (INO) ==
[2019-04-04] MEDS ORDERED: 0.9 % Sodium Chloride 1,000 ML IVC ONE (02:06)
[2019-04-04 02:28] LABS: Bilirubin,Urine Negative (Negative); Blood,Urine Negative (Negative); Clarity,Urine Clear (Clear); Color,Urine Yellow (Yellow); Glucose,Urine (UA) Normal (Normal); Ketones,Urine Trace mg/dL (Negative); Leukocyte Esterase,Urine Moderate (Negative); Nitrite,Urine Positive (Negative); Protein,Urine Trace mg/dL (Neg-Trace); Specific Gravity,Urine 1.018 (1.010-1.025); Urobilinogen,Urine Normal (Normal)
[2019-04-04 02:28] LABS: Basophils % 0.1 %; Hematocrit 30.7 % (37.5-50.1); Hemoglobin 10.2 g/dL (12.9-16.9); Immature Granulocytes % 1.8 % (0-4); Lymphocytes # 0.8 K/mcL (0.6-4.6); Lymphocytes % 2.8 %; Mean Corpuscular HGB Conc 33.2 g/dL (31.6-35.5); Mean Corpuscular Volume 99.4 fL (83.0-100.0); Mean Platelet Volume 11.3 fL (9.4-12.4); Monocytes # 2.3 K/mcL (0.0-1.3); Neutrophils # 25.1 K/mcL (1.6-8.9); Platelet Count 231 K/mcL (140-400); Red Blood Count 3.09 M/mcL (4.19-5.50); Red Cell Distribution Width 11.9 % (11.5-14.5); Segmented Neutrophils % 87.3 %; White Blood Count 28.7 K/mcL (4.3-11.1)
[2019-04-04 02:30] LABS: Bacteria,Urine Moderate per hpf (None-Few); Hyaline Casts,Urine None Seen per lpf (None-Few); RBC,Urine 0-3 per hpf (0-3); Squamous Epithelial Cell,Urine None Seen per lpf (None-Few); WBC,Urine 15-30 per hpf (0-3)
[2019-04-04] MEDS ORDERED: cefTRIAXone 1,000 MG in Water for inj. (sterile) 10 ML IVP ONE (02:42)
[2019-04-04 02:46] LABS: Platelet Estimate Normal (Normal)
[2019-04-04 02:49] LABS: Calcium 10.1 mg/dL (8.6-10.3); Potassium 4.6 mEq/L (3.5-5.1)
--- NOTE | 2019-04-04 02:55 | Emergency Department Note ---
Disposition Clinical Impression: Elevated troponin Sepsis Qualifiers: Sepsis type: sepsis due to unspecified organism Sepsis acute organ dysfunction status: without acute organ dysfunction Qualified Code(s): A41.9 - Sepsis, unspecified organism UTI (urinary tract infection) Qualifiers: Urinary tract infection type: acute cystitis Hematuria presence: without hematu trent Qualified Code(s): N30.00 - Acute cystitis without hematuria CKD (chronic kidney disease) Qualifiers: Chronic kidney disease stage: unspecified stage Qualified Code(s): N18.9 - Chronic kidney disease, unspecified Disposition: Admitted As Inpatient Condition: Fair Referrals: NONE,PCP [Primary Care Provider] - Time of Disposition: 03:01 General Adult HPI - General Chief complaint: ED General Medical Stated complaint: high sugar Time Seen by Provider: 04/04/19 01:57 Source: patient, EMS Mode of arrival: EMS Limitations: no limitations Nursing Notes Reviewed: Yes Vital Signs Reviewed: Yes - History of Present Illness HPI Narrative: Patient is a 78-year-old male with a past medical history of diabetes, hy pertension, renal disease presenting to the ED for evaluation of weakness and elevated blood sugars are running as high as a 400s. Patient states over the past 24 hours he has felt generally weak and this evening he was checking his blood sugar prior to going to bed and there were in the high 300s to low 400s and his daughter was also home with him so she called the squad. He denies any fevers, chills, cough, congestion, chest pain, shortness of breath, abdominal pain, nausea, vomiting or diarrhea. Pain Scale: 0 - Related Data Home Medications Medication Instructions Recorded Confirmed Pioglitazone [Actos] 45 mg PO DAILY 11/13/15 05/11/18 Ferrous Sulfate [Iron] 325 mg PO DAILY 03/08/16 05/11/18 GlipiZIDE XL (24 HR) [Glucotrol XL] 10 mg PO BID 09/05/17 05/11/18 Lisinopril [Zestril] 10 mg PO DAILY 09/05/17 05/11/18 Multivit-Min/FA/Lycopen/Lutein [A 1 tab PO DAILY 09/05/17 05/11/18 Thru Z Select Multivit Tab] Pravastatin Sodium [Pravachol] 80 mg PO DAILY 09/05/17 05/11/18 hydroCHLOROthiazide 12.5 mg PO DAILY 09/05/17 05/11/18 [Hydrochlorothiazide] amLODIPine [Norvasc] 5 mg PO DAILY 05/11/18 05/11/18 Previous Rx's Medication Instructions Recorded Insulin LISPRO [HumaLOG] See Protocol SQ Q6HR #1 vial 05/24/18 Allergies Allergy/AdvReac Type Severity Reaction Status Date / Time No Known Allergies Allergy Verified 05/11/18 19:41 All systems ED: reviewed and negative except as stated. Review of Systems: As Per HPI Constitutional: Denies: fever, chills Cardiovascular: Denies: chest pain Respiratory: Denies: cough, dyspnea, wheezes Gastrointestinal: Denies: abdominal pain, nausea, vomiting Integumentary: Denies: rash Neurological: Denies: headache, weakness, numbness, paresthesias, confusion Past Medical History - Past Medical History Attestation: Yes The following information was validated with the patient. Medical history: Reports: arthritis, diabetes, hyperlipidemia, hypertension, renal disease, other Surgical history: Reports: cataract, orthopedic, other Psychiatric history: Reports: no psych history - Social History Smoking Status: Former smoker Smokeless Tobacco Status: No Alcohol use: Reports: none Drug use: Reports: none Physical Exam CONSTITUTIONAL: Alert and oriented X3, well-nourished, well appearing, in no apparent distress HEAD: Normocephalic; atraumatic. EYES: PERRL, no scleral icterus. NOSE: The nose is normal in appearance without rhinorrhea RESP: Normal chest excursion with respiration; breath sounds clear and equal bilaterally; no wheezes, rhonchi, or rales CARD: Regular rhythm, without murmurs, rub or gallop ABD: Non-distended; non-tender, soft,without rigidity, rebound or guarding SKIN: Normal for age and race; warm and dry; no apparent lesions NEUROLOGICAL: Patient is alert and oriented times three. Cranial nerves III- XII are intact. Sensory and motor functions are intact. Strength is 5/5 for flexion and extension in all 4 extremities. Finger to nose testing is equal and normal bilaterally. - General Limitations: no limitations General appearance: alert Course Course Narrative: Patient was tachycardic on arrival and had a blood high temperature of 100.1 reported by squad he will undergo evaluation with a sepsis workup as well as evaluation for his generalized fatigue with an EKG and cardiac workup. Given that he is tachycardic and borderline high temperature old go ahead with cultures and lactic acid. - Reevaluation(s) Reevaluation #1: Patient has significant leukocytosis findings of his chronic kidney disease on his lab work. He appears to have a urinary tract infection as a source of his sepsis. He is normotensive and his lactic is within normal levels does not require the sepsis bolus. He was given a dose of IV Rocephin for his UTI and will be admitted for further workup. He also has a mild elevation of his troponin of 0.04 which is suspect is due to demand ischemia given his ta chycardia secondary to sepsis. Time: 02:58 Vital Signs Temperature 99.9 F H 04/04/19 01:59 Pulse Rate 106 04/04/19 01:59 Respiratory Rate 18 04/04/19 01:59 Blood Pressure 145/55 04/04/19 01:59 O2 Sat by Pulse Oximetry 99 04/04/19 01:59 Temperature 99.9 F H 04/04/19 02:08 Pulse Rate 103 04/04/19 02:08 Respiratory Rate 17 04/04/19 02:08 Blood Pressure 145/55 04/04/19 01:59 O2 Sat by Pulse Oximetry 98 04/04/19 02:08 Oxygen Delivery Oxygen Delivery Room Air Medical Decision Making - Medical Records Medical records reviewed: Yes I reviewed the patient's medical records. - Lab Data Lab results reviewed: Yes I reviewed the patient's lab results. Result diagrams: 04/04/19 02:12 04/04/19 02:12 Lab Results 04/04/19 04/04/19 04/04/19 Range/Units 02:05 02:12 02:12 WBC 28.7 H (4.3-11.1) K/mcL RBC 3.09 L (4.19-5.50) M/mcL Hgb 10.2 L (12.9-16.9) g/dL Hct 30.7 L (37.5-50.1) % MCV 99.4 (83.0-100.0) fL MCH 33.0 (28.0-33.3) pg MCHC 33.2 (31.6-35.5) g/dL RDW 11.9 (11.5-14.5) % Plt Count 231 (140-400) K/mcL MPV 11.3 (9.4-12.4) fL Immature Gran % 1.8 (0-4) % Seg Neutrophils % 87.3 % Lymphocytes % 2.8 % Monocytes % 8.0 % Eosinophils % 0.0 % Basophils % 0.1 % Neutrophils # 25.1 H (1.6-8.9) K/mcL Lymphocytes # 0.8 (0.6-4.6) K/mcL Monocytes # 2.3 H (0.0-1.3) K/mcL Eosinophils # 0.0 (0.0-0.6) K/mcL Basophils # 0.0 (0.0-0.2) K/mcL Platelet Estimate Normal (Normal) Sodium 133 L (136-145) mEq/L Potassium 4.6 (3.5-5.1) mEq/L Chloride 103 (98-107) mEq/L Carbon Dioxide 22 L (23-29) mEq/L BUN 69 H (8-23) mg/dL Creatinine 2.14 H (0.70-1.30) mg/dL Est GFR ( Amer) 36 L (> 60) Est GFR (Non-Af Amer) 30 L (> 60) BUN/Creatinine Ratio 32 H (6-26) Glucose 280 H (70-105) mg/dL POC Glucose 285 H (70-99) mg/dL Calculated Osmolality 306 H (280-300) Lactic Acid (0.5-2.2) mmol/L Calcium 10.1 (8.6-10.3) mg/dL Troponin I 0.04 H* (< 0.04) ng/mL Urine Color (Yellow) Urine Clarity (Clear) Urine pH (5.0-8.0) pH Units Ur Specific [place] (1.010-1.025) Urine Protein (Neg-Trace) mg/dL Urine Glucose (UA) (Normal) mg/dL Urine Ketones (Negative) mg/dL Urine Blood (Negative) Urine Nitrite (Negative) Urine Bilirubin (Negative) Urine Urobilinogen (Normal) mg/dL Ur Leukocyte Esterase (Negative) Urine Microscopic RBC (0-3) per hpf Urine Microscopic WBC (0-3) per hpf Ur Squamous Epith Cells (None-Few) per lpf Urine Bacteria (None-Few) per hpf Hyaline Casts (None-Few) per lpf Ur Culture Indicated? (NO) 04/04/19 04/04/19 Range/Units 02:12 02:17 WBC (4.3-11.1) K/mcL RBC (4.19-5.50) M/mcL Hgb (12.9-16.9) g/dL Hct (37.5-50.1) % MCV (83.0-100.0) fL MCH (28.0-33.3) pg MCHC (31.6-35.5) g/dL RDW (11.5-14.5) % Plt Count (140-400) K/mcL MPV (9.4-12.4) fL Immature Gran % (0-4) % Seg Neutrophils % % Lymphocytes % % Monocytes % % Eosinophils % % Basophils % % Neutrophils # (1.6-8.9) K/mcL Lymphocytes # (0.6-4.6) K/mcL Monocytes # (0.0-1.3) K/mcL Eosinophils # (0.0-0.6) K/mcL Basophils # (0.0-0.2) K/mcL Platelet Estimate (Normal) Sodium (136-145) mEq/L Potassium (3.5-5.1) mEq/L Chloride (98-107) mEq/L Carbon Dioxide (23-29) mEq/L BUN (8-23) mg/dL Creatinine (0.70-1.30) mg/dL Est GFR ( Amer) (> 60) Est GFR (Non-Af Amer) (> 60) BUN/Creatinine Ratio (6-26) Glucose (70-105) mg/dL POC Glucose (70-99) mg/dL Calculated Osmolality (280-300) Lactic Acid 0.8 (0.5-2.2) mmol/L Calcium (8.6-10.3) mg/dL Troponin I (< 0.04) ng/mL Urine Color Yellow (Yellow) Urine Clarity Clear (Clear) Urine pH 6.0 (5.0-8.0) pH Units Ur Specific [place] 1.018 (1.010-1.025) Urine Protein Trace (Neg-Trace) mg/dL Urine Glucose (UA) Normal (Normal) mg/dL Urine Ketones Trace H (Negative) mg/dL Urine Blood Negative (Negative) Urine Nitrite Positive A (Negative) Urine Bilirubin Negative (Negative) Urine Urobilinogen Normal (Normal) mg/dL Ur Leukocyte Esterase Moderate H (Negative) Urine Microscopic RBC 0-3 (0-3) per hpf Urine Microscopic WBC 15-30 H (0-3) per hpf Ur Squamous Epith Cells None Seen (None-Few) per lpf Urine Bacteria Moderate H (None-Few) per hpf Hyaline Casts None Seen (None-Few) per lpf Ur Culture Indicated? YES A (NO) - Radiology Data Radiology results reviewed: Yes I reviewed the patient's radiology results. CXR shows no acute pneumonia. - EKG Data EKG #1 EKG attestation: Yes I reviewed and interpreted this EKG. EKG results narrative: EKG done at 2:09 shows sinus rhythm at a rate of 97 bpm. Normal axis. Intervals within normal limits. No ST elevation, ST depression or Q waves present.
[2019-04-04 02:56] LABS: Troponin I 0.04 ng/mL (< 0.04)
--- NOTE | 2019-04-04 03:51 | Emergency Department Note ---
Disposition Clinical Impression: Elevated troponin Sepsis Qualifiers: Sepsis type: sepsis due to unspecified organism Sepsis acute organ dysfunction status: without acute organ dysfunction Qualified Code(s): A41.9 - Sepsis, unspecified organism UTI (urinary tract infection) Qualifiers: Urinary tract infection type: acute cystitis Hematuria presence: without hematu trent Qualified Code(s): N30.00 - Acute cystitis without hematuria CKD (chronic kidney disease) Qualifiers: Chronic kidney disease stage: unspecified stage Qualified Code(s): N18.9 - Chronic kidney disease, unspecified Disposition: Admitted As Inpatient Condition: Fair Referrals: NONE,PCP [Primary Care Provider] - Time of Disposition: 03:01 General Adult HPI - General Chief complaint: ED General Medical Stated complaint: high sugar Time Seen by Provider: 04/04/19 01:57 Source: patient, EMS Mode of arrival: EMS Limitations: no limitations Nursing Notes Reviewed: Yes Vital Signs Reviewed: Yes - History of Present Illness Pain Scale: 0 - Related Data Home Medications Medication Instructions Recorded Confirmed Pioglitazone [Actos] 45 mg PO DAILY 11/13/15 05/11/18 Ferrous Sulfate [Iron] 325 mg PO DAILY 03/08/16 05/11/18 GlipiZIDE XL (24 HR) [Glucotrol XL] 10 mg PO BID 09/05/17 05/11/18 Lisinopril [Zestril] 10 mg PO DAILY 09/05/17 05/11/18 Multivit-Min/FA/Lycopen/Lutein [A 1 tab PO DAILY 09/05/17 05/11/18 Thru Z Select Multivit Tab] Pravastatin Sodium [Pravachol] 80 mg PO DAILY 09/05/17 05/11/18 hydroCHLOROthiazide 12.5 mg PO DAILY 09/05/17 05/11/18 [Hydrochlorothiazide] amLODIPine [Norvasc] 5 mg PO DAILY 05/11/18 05/11/18 Previous Rx's Medication Instructions Recorded Insulin LISPRO [HumaLOG] See Protocol SQ Q6HR #1 vial 05/24/18 Allergies Allergy/AdvReac Type Severity Reaction Status Date / Time No Known Allergies Allergy Verified 05/11/18 19:41 Constitutional: Denies: fever, chills Cardiovascular: Denies: chest pain Respiratory: Denies: cough, dyspnea, wheezes Gastrointestinal: Denies: abdominal pain, nausea, vomiting Integumentary: Denies: rash Neurological: Denies: headache, weakness, numbness, paresthesias, confusion Past Medical History - Past Medical History Medical history: Reports: arthritis, diabetes, hyperlipidemia, hypertension, renal disease, other Surgical history: Reports: cataract, orthopedic, other Psychiatric history: Reports: no psych history - Social History Smoking Status: Former smoker Smokeless Tobacco Status: No Alcohol use: Reports: none Drug use: Reports: none Physical Exam - General Limitations: no limitations General appearance: alert Course Vital Signs Temperature 99.9 F H 04/04/19 01:59 Pulse Rate 106 04/04/19 01:59 Respiratory Rate 18 04/04/19 01:59 Blood Pressure 145/55 04/04/19 01:59 O2 Sat by Pulse Oximetry 99 04/04/19 01:59 Temperature 99.9 F H 04/04/19 02:08 Pulse Rate 103 04/04/19 02:08 Respiratory Rate 17 04/04/19 02:08 Blood Pressure 145/55 04/04/19 01:59 O2 Sat by Pulse Oximetry 98 04/04/19 02:08 Oxygen Delivery Oxygen Delivery Room Air Medical Decision Making - Medical Records Medical records reviewed: Yes I reviewed the patient's medical records. - Lab Data Lab results reviewed: Yes I reviewed the patient's lab results. Result diagrams: 04/04/19 02:12 04/04/19 02:12 Lab Results 04/04/19 04/04/19 04/04/19 Range/Units 02:05 02:12 02:12 WBC 28.7 H (4.3-11.1) K/mcL RBC 3.09 L (4.19-5.50) M/mcL Hgb 10.2 L (12.9-16.9) g/dL Hct 30.7 L (37.5-50.1) % MCV 99.4 (83.0-100.0) fL MCH 33.0 (28.0-33.3) pg MCHC 33.2 (31.6-35.5) g/dL RDW 11.9 (11.5-14.5) % Plt Count 231 (140-400) K/mcL MPV 11.3 (9.4-12.4) fL Immature Gran % 1.8 (0-4) % Seg Neutrophils % 87.3 % Lymphocytes % 2.8 % Monocytes % 8.0 % Eosinophils % 0.0 % Basophils % 0.1 % Neutrophils # 25.1 H (1.6-8.9) K/mcL Lymphocytes # 0.8 (0.6-4.6) K/mcL Monocytes # 2.3 H (0.0-1.3) K/mcL Eosinophils # 0.0 (0.0-0.6) K/mcL Basophils # 0.0 (0.0-0.2) K/mcL Platelet Estimate Normal (Normal) Sodium 133 L (136-145) mEq/L Potassium 4.6 (3.5-5.1) mEq/L Chloride 103 (98-107) mEq/L Carbon Dioxide 22 L (23-29) mEq/L BUN 69 H (8-23) mg/dL Creatinine 2.14 H (0.70-1.30) mg/dL Est GFR ( Amer) 36 L (> 60) Est GFR (Non-Af Amer) 30 L (> 60) BUN/Creatinine Ratio 32 H (6-26) Glucose 280 H (70-105) mg/dL POC Glucose 285 H (70-99) mg/dL Calculated Osmolality 306 H (280-300) Lactic Acid (0.5-2.2) mmol/L Calcium 10.1 (8.6-10.3) mg/dL Troponin I 0.04 H* (< 0.04) ng/mL Urine Color (Yellow) Urine Clarity (Clear) Urine pH (5.0-8.0) pH Units Ur Specific [place] (1.010-1.025) Urine Protein (Neg-Trace) mg/dL Urine Glucose (UA) (Normal) mg/dL Urine Ketones (Negative) mg/dL Urine Blood (Negative) Urine Nitrite (Negative) Urine Bilirubin (Negative) Urine Urobilinogen (Normal) mg/dL Ur Leukocyte Esterase (Negative) Urine Microscopic RBC (0-3) per hpf Urine Microscopic WBC (0-3) per hpf Ur Squamous Epith Cells (None-Few) per lpf Urine Bacteria (None-Few) per hpf Hyaline Casts (None-Few) per lpf Ur Culture Indicated? (NO) 04/04/19 04/04/19 Range/Units 02:12 02:17 WBC (4.3-11.1) K/mcL RBC (4.19-5.50) M/mcL Hgb (12.9-16.9) g/dL Hct (37.5-50.1) % MCV (83.0-100.0) fL MCH (28.0-33.3) pg MCHC (31.6-35.5) g/dL RDW (11.5-14.5) % Plt Count (140-400) K/mcL MPV (9.4-12.4) fL Immature Gran % (0-4) % Seg Neutrophils % % Lymphocytes % % Monocytes % % Eosinophils % % Basophils % % Neutrophils # (1.6-8.9) K/mcL Lymphocytes # (0.6-4.6) K/mcL Monocytes # (0.0-1.3) K/mcL Eosinophils # (0.0-0.6) K/mcL Basophils # (0.0-0.2) K/mcL Platelet Estimate (Normal) Sodium (136-145) mEq/L Potassium (3.5-5.1) mEq/L Chloride (98-107) mEq/L Carbon Dioxide (23-29) mEq/L BUN (8-23) mg/dL Creatinine (0.70-1.30) mg/dL Est GFR ( Amer) (> 60) Est GFR (Non-Af Amer) (> 60) BUN/Creatinine Ratio (6-26) Glucose (70-105) mg/dL POC Glucose (70-99) mg/dL Calculated Osmolality (280-300) Lactic Acid 0.8 (0.5-2.2) mmol/L Calcium (8.6-10.3) mg/dL Troponin I (< 0.04) ng/mL Urine Color Yellow (Yellow) Urine Clarity Clear (Clear) Urine pH 6.0 (5.0-8.0) pH Units Ur Specific [place] 1.018 (1.010-1.025) Urine Protein Trace (Neg-Trace) mg/dL Urine Glucose (UA) Normal (Normal) mg/dL Urine Ketones Trace H (Negative) mg/dL Urine Blood Negative (Negative) Urine Nitrite Positive A (Negative) Urine Bilirubin Negative (Negative) Urine Urobilinogen Normal (Normal) mg/dL Ur Leukocyte Esterase Moderate H (Negative) Urine Microscopic RBC 0-3 (0-3) per hpf Urine Microscopic WBC 15-30 H (0-3) per hpf Ur Squamous Epith Cells None Seen (None-Few) per lpf Urine Bacteria Moderate H (None-Few) per hpf Hyaline Casts None Seen (None-Few) per lpf Ur Culture Indicated? YES A (NO) - Radiology Data Radiology results reviewed: Yes I reviewed the patient's radiology results. Chest X-Ray 04/04/19 03:44 IMPRESSION: No acute cardiopulmonary process. D/ / Bright Peña MD / Bright Peña MD Interpreting Provider: Bright Peña MD - EKG Data EKG #1 EKG attestation: Yes I reviewed and interpreted this EKG. EKG results narrative: EKG shows normal sinus rhythm with ventricular rate of 97. No significant ST segment elevation or depression. No arrhythmia or ectopy. Critical Care Time Critical Care Time: Yes Total Critical Care Time: 35 Attestation: Critical care performed: Time is exclusive of separately billable procedures. Time includes: direct patient care, patient reassessment, coordination of patient care, interpretation of data (laboratory data, radiology data, and respiratory data), review of patient's medical records, medical consultation and documentation of patient care. Procedures included in critical care time: Procedures excluded from critical care time: Attestation Statement - Attestation Attestation: IShelton MD, personally evaluated this patient and discussed their management with the resident physician. I reviewed the resident's note and agree with the documented findings, medical decision making, and plan of care. I reviewed the residents documentation and agree with the residents assessment and plan of care. I have personally had face to face time with the patient. I personally supervised and was present for the cross/critical portions of the following procedures completed by the resident: EKG interpretation. 78-year-old male presents to the emergency department by EMS with a complaint of an elevated blood sugar which started earlier this evening. Patient complains of some generalized weakness but no other specific complaints. He denies any fever. EMS reported a temperature of 100.1. On arrival here his temp is 99.9. He denies any increased cough. He does have a chronic cough but no worse or different than usual. No chest pain or shortness of breath and no abdominal pain. Some mild nausea but no vomiting or diarrhea. No dysuria or gross hematuria. On examination patient is a well-developed well-nourished elderly male in no acute distress. He is alert and oriented. No cyanosis or diaphoresis. Breath sounds are clear and equal bilaterally. Heart regular rate and rhythm. Abdomen soft and nontender with normal bowel sounds. Labs reviewed. WBC 28.7. UTI. Lactic acid 0.8. Chest x-ray negative. EKG shows normal sinus rhythm with ventricular rate of 97. No significant ST segment elevation or depression. No arrhythmia or ectopy. The hospitalist, Dr. Skinner, was consulted and accepted admission of the patient.
[2019-04-04] MEDS ORDERED: Acetaminophen 325 MG TABLET PO PRN (04:14)
[2019-04-04] MEDS ORDERED: Naloxone 0.4 MG/ML INJ IVP PRN (04:14)
[2019-04-04] MEDS ORDERED: Ondansetron 4 MG/2 ML VIAL IVP PRN (04:14)
[2019-04-04] MEDS ORDERED: 0.9 % Sodium Chloride 1,000 ML IVC SCH (04:15)
--- NOTE | 2019-04-04 04:28 | Internal Med History&Physical ---
Date of Encounter: 04/04/19 Time of Encounter: 04:25 Internal Medicine - H&P: HPI Chief complaint: Weakness/Hyperglycemia History of present illness: Mr. Chavarria is a 78 year old male with a past medical history of IDDM, hypertension, renal disease presenting to the ED for evaluation of weakness, malaise and elevated blood sugars are running as high as a 400s for the past day. On arrival patient was tachycardic with a low-grade fever 100.1. Was found to have a significant leukocytosis of 28.7 and evidence of acute on chronic kidney injury. Lactic acid within normal limits. Troponin was mildly elevated at 0.04. EKG otherwise showed sinus rhythm with a heart rate of 97 in the absence of any ST or T-wave changes concerning for ischemia. UA suggestive of possible UTI. Chest x-ray showed no acute cardiopulmonary process. Patient denies fever, chills, cough, SOB, chest pain, N,V,D. Patient was started on IV fluids and ceftriaxone. Past Med Surg Social Fam HX - Past Medical History Medical history: arthritis, diabetes, hyperlipidemia, hypertension, renal disease, other Additional medical history: polio, cataract, hx dialysis Psychiatric history: no psych history - Past Surgical History Surgical History: cataract, orthopedic, other Additional surgical history: repair of right femur status post fall - Social History Smoking Status: Former smoker Smokeless Tobacco Status: No Alcohol use: none Drug use: none Internal Medicine - H&P: Meds Pioglitazone [Actos] 45 mg PO DAILY 11/13/15 [History] Lisinopril [Zestril] 10 mg PO HS 09/05/17 [History] Multivit-Min/FA/Lycopen/Lutein [A Thru Z Select Multivit Tab] 1 tab PO DAILY 09/05/17 [History] Pravastatin Sodium [Pravachol] 80 mg PO DAILY 09/05/17 [History] amLODIPine [Norvasc] 5 mg PO DAILY 05/11/18 [History] Aspirin [Adult Aspirin] 81 mg PO DAILY 04/04/19 [History] Ca/D3/Mag#11/Zinc/Head Porter Baggage/Giles/Bor [Caltrate 600+D Plus Tablet] 1 tab PO DAILY 04/04/19 [History] Cholecalciferol (Vitamin D3) [Dialyvite Vitamin D] 5,000 units PO DAILY 04/04/19 [History] Ferrous Sulfate 325 mg PO BID 04/04/19 [History] Insulin ASPART [Novolog Flexpen] 5 units SQ TIDWM 04/04/19 [History] Insulin DETEMIR [Levemir] 15 unit SQ HS 04/04/19 [History] Allergy/AdvReac Type Severity Reaction Status Date / Time No Known Allergies Allergy Verified 04/04/19 16:11 All Systems PM: A 10-system review of systems was performed and is negative for pertinent findings except as documented above in the HPI. - Constitutional Constitutional: no chills, no fever(s), no night sweats - EENT Eyes: no change in vision, no discharge, no pain, no photophobia Ears: no ear discharge, no ear pain, no tinnitus Nose, mouth and throat: no dysphagia, no nasal discharge, no neck pain, no sore throat - Cardiovascular Cardiovascular ROS IM: no chest pain, no diaphoresis, no dyspnea, no lightheadedness, no palpitations, no syncope - Respiratory Respiratory: no cough, no dyspnea, no wheezing, no excessive phlegm production - Gastrointestinal Gastrointestinal: no abdominal pain, no diarrhea, no hematemesis, no hematochezia, no melena, no nausea, no vomiting - Musculoskeletal Musculoskeletal ROS IM: no numbness, no tingling - Integumentary Integumentary IM: no rash, no unusual bruising - Neurological Neurological ROS: no confusion, no convulsions, no focal weakness, no numbness, no tingling, no tremor(s) - Hematologic/Lymphatic Hematologic/Lymphatic: no easy bruising - Constitutional Vitals: Temp Pulse Resp BP Pulse Ox 99.4 F 101 24 135/62 94 04/04/19 04:16 04/04/19 04:16 04/04/19 04:16 04/04/19 04:16 04/04/19 04:16 Exam: General: Alert and oriented x3 Skin:Normal color, no rash, no lesions. HEENT:EOM, pupils equal, round and reactive. Cardiovascular:Normal S1 & S2, no rubs, murmurs or gallops. No JVD. Pulse regular. Lungs:Normal breath sounds, no wheezes or crackles. Abdomen:Soft, non-tender, no rigidity. Extremities:No deformity, no edema or tenderness, no joint swelling or clubbing. Neurological:Normal cognition and motor skills. Pulses:Carotid and radial pulses normal +2. Rest of the physical exam is non contributory Internal Med - H&P Results - Labs CBC & Chem 7: 04/05/19 02:39 04/05/19 02:39 Labs: Short CBC 04/04/19 Range/Units 02:12 WBC 28.7 H (4.3-11.1) K/mcL Hgb 10.2 L (12.9-16.9) g/dL Hct 30.7 L (37.5-50.1) % Plt Count 231 (140-400) K/mcL Neutrophils # 25.1 H (1.6-8.9) K/mcL BMP 04/04/19 02:12 Sodium 133 L Potassium 4.6 Chloride 103 Carbon Dioxide 22 L BUN 69 H Creatinine 2.14 H Glucose 280 H Calcium 10.1 Cardiac Enzymes 04/04/19 Range/Units 02:12 Troponin I 0.04 H* (< 0.04) ng/mL Urine 04/04/19 Range/Units 02:17 Urine Color Yellow (Yellow) Urine Clarity Clear (Clear) Urine pH 6.0 (5.0-8.0) pH Units Ur Specific [place] 1.018 (1.010-1.025) Urine Protein Trace (Neg-Trace) mg/dL Urine Glucose (UA) Normal (Normal) mg/dL - Impressions ITS Impressions Chest X-Ray 04/04/19 03:44 IMPRESSION: No acute cardiopulmonary process. D/ / Bright Peña MD / Bright Peña MD Interpreting Provider: Bright Peña MD - Assessment and Plan (1) UTI (urinary tract infection) Current Visit: Yes Status: Acute Assessment and plan: Patient presenting with weakness and generalized malaise with low-grade fever. Found to have significant leukocytosis. Urinalysis positive for nitrites and moderate leukocyte esterase though patient denies dysuria per se. Concern for underlying UTI. -Continue ceftriaxone -Follow-up urine cultures Qualifiers: Urinary tract infection type: acute cystitis Hematuria presence: without hematuria Qualified Code(s): N30.00 - Acute cystitis without hematuria (2) Sepsis Current Visit: Yes Status: Acute Assessment and plan: Patient presenting with tachycardia and a significant leukocytosis. Lactic acid within normal limits. Suspect secondary to UTI. -Patient received 1 L fluid bolus in the ED. We will continue maintenance fluids and bolus as needed -Continue antibiotics -Follow blood and urine cultures Qualifiers: Sepsis type: sepsis due to unspecified organism Sepsis acute organ dysfunction status: without acute organ dysfunction Qualified Code(s): A41.9 - Sepsis, unspecified organism (3) Elevated troponin Current Visit: Yes Status: Acute Assessment and plan: Patient found to have an elevated troponin of 0.04. No reports of chest pain per se or prior Hx of heart disease. EKG otherwise shows sinus rhythm with no evidence of ST or T-wave changes concerning for ischemia. Suspect demand ischemia in the setting of underlying infectious etiology/sepsis at this time suspected to be UTI. -Telemetry -We will trend troponin -We will obtain echocardiogram for further assessment (4) Bmzxm-[id number] kidney injury Current Visit: Yes Status: Acute Assessment and plan: Creatinine 2.14. Most recent baseline appears to be around 1.75. Suspect prerenal etiology in the setting of underlying infection/sepsis. -Continue supportive fluids -We will reassess kidney function in the morning Qualifiers: Acute renal failure type: unspecified Chronic kidney disease stage: unspeci fied stage Qualified Code(s): N17.9 - Acute kidney failure, unspecified; N18.9 - Chronic kidney disease, unspecified (5) Hyperglycemia Current Visit: No Status: Acute Assessment and plan: Patient presenting with reports of hyperglycemia with blood sugars at home as high as 400. On arrival patient's blood sugar was 285. No evidence of anion gap. No reports of medication noncompliance. Daughter at bedside provided log of blood sugar which patient checks twice a day. BS have been in the 120's and began rising last night no reports of increased carb intake Patient currently basal plus premeal insulin. Hyperglycemia may be stress response to infection -We will start patient on basal plus sliding scale. (6) Diabetes Current Visit: Yes Status: Chronic Qualifiers: Diabetes mellitus type: type 2 Diabetes mellitus long goods drier insulin use: without retirement use Diabetes mellitus complication status: without complication Qualified Code(s): E11.9 - Type 2 diabetes mellitus without complications (7) DVT prophylaxis Current Visit: Yes Status: Acute Assessment and plan: Subcutaneous heparin - Time Spent With Patient Total time spent is greater than 50% in coordination of care (as documented) at patient's floor/unit and/or counseling patient:
[2019-04-04] MEDS ORDERED: D5% in Water 1,000 ML IVC PRN (04:54)
[2019-04-04] MEDS ORDERED: Dextrose Gel 15 GM/37.5 ML TUBE PO PRN ×2 (04:54)
[2019-04-04] MEDS ORDERED: *HR* Dextrose 50 % in Water (Syg) 50 ML SYRINGE IVP PRN (04:54)
[2019-04-04] MEDS: *HR* Heparin 5,000 UNIT/ML VIAL SQ SCH ×3 (06:12→22:25)
[2019-04-04] MEDS: Aspirin Enteric Coated 81 MG Tablet PO SCH (08:29)
[2019-04-04] MEDS: Insulin LISPRO 300 UNITS/3 ML VIAL SQ SCH ×3 (08:29→16:11)
[2019-04-04 09:50] LABS: Mean Platelet Volume 11.3 fL (9.4-12.4); Monocytes % 6.2 %
[2019-04-04 09:51] LABS: Basophils # 0.1 K/mcL (0.0-0.2); Basophils % 0.3 %; Hematocrit 28.4 % (37.5-50.1); Hemoglobin 9.3 g/dL (12.9-16.9); Immature Granulocytes % 2.8 % (0-4); Lymphocytes # 1.2 K/mcL (0.6-4.6); Lymphocytes % 3.9 %; Mean Corpuscular HGB Conc 32.7 g/dL (31.6-35.5); Mean Corpuscular Hemoglobin 33.6 pg (28.0-33.3); Mean Corpuscular Volume 102.5 fL (83.0-100.0); Monocytes # 1.9 K/mcL (0.0-1.3); Platelet Count 211 K/mcL (140-400); Red Blood Count 2.77 M/mcL (4.19-5.50); Red Cell Distribution Width 11.9 % (11.5-14.5); Segmented Neutrophils % 86.8 %
[2019-04-04 10:04] LABS: INR 1.2; Prothrombin Time 13.7 Seconds (9.4-12.1)
[2019-04-04 10:07] LABS: Activated Partial Thrombo Time 31.9 Seconds (26.0-36.0)
[2019-04-04 10:13] LABS: Albumin 3.2 g/dL (3.5-5.7); Albumin/Globulin Ratio 1.1 (1.1-2.2); Bilirubin,Total 0.3 mg/dL (0.3-1.0); Globulin 2.9 g/dL (2.4-3.5); Potassium 4.1 mEq/L (3.5-5.1); Total Protein 6.1 g/dL (6.4-8.9); Troponin I 0.03 ng/mL (< 0.04)
[2019-04-04 10:38] LABS: Platelet Estimate Normal (Normal)
[2019-04-04] MEDS: Ringers Solution, Lactated 1,000 ML IVC SCH ×2 (11:33→22:13)
[2019-04-04] MEDS ORDERED: cefTRIAXone 2,000 MG in Water for inj. (sterile) 20 ML IVP SCH (12:00)
--- NOTE | 2019-04-04 12:36 | Internal Med Progress Note ---
Hospitalist Progress Note - Encounter Date of Encounter: 04/04/19 Time of Encounter: 11:30 - Subjective Interval History: Mr. Chavarria does report increased urinary frequency and nocturia denies any history of prior BPH. He did state that he has had history of polio resulting in lower extremity deformity GEN: reports fever, chills or malaise HEENT: Denies headache blurriness, or dysphagia RESP: Denies SOB or cough CV: Denies chest pain or palpitations GI: Denies Nausea, vomiting, diarrhea or constipation reports urinary frequency but denies dysuria Reviewed current in hospital medications with modifications see orders Reviewed Routine labs - Exam Vitals: Temp Pulse Resp BP Pulse Ox 98.6 F 95 14 125/65 95 04/04/19 11:46 04/04/19 11:46 04/04/19 11:46 04/04/19 11:46 04/04/19 11:46 Exam: GEN: NAD, A&O x 3, Pleasant and conversant SKIN: Warner warm acyanotic not jaundice HEART: RRR, no murmurs LUNGS: CTA no wheeze or crackles, overall non labored ABDOMEN; Soft, non tender or distended, BS x 4 normactive EXT: Ankle edema noted 3+ on the right foot 2+ in the left , Pedal pulses 1+, radial pulses 2+ foot drop noted on the right foot foot deformity noted bilaterally PSYCH: Mood and affect is appropriate - Assessment and Plan (1) Sepsis Current Visit: Yes Status: Acute Assessment and Plan: Secondary to likely underlying UTI blood cultures and urine cultures pending le ukocytosis trended up to 30,000 patient denies any diarrhea but admits to urinary frequency but denies dysuria and tympanic treatment with ceftriaxone high-dose UA does reveal positive nitrites as such suspect gram-negative organism (2) UTI (urinary tract infection) Current Visit: Yes Status: Acute Assessment and Plan: UA revealed positive nitrites as well as leukocyte esterase high threshold for gram-negative organism continue ceftriaxone await sensitivity (3) Elevated troponin Current Visit: Yes Status: Acute Assessment and Plan: Patient found to have an elevated troponin of 0.04. No reports of chest pain per se or prior Hx of heart disease. EKG otherwise shows sinus rhythm with no evidence of ST or T-wave changes concerning for ischemia. Suspect demand ischemia in the setting of underlying infectious etiology/sepsis at this time suspected to be UTI. Troponin trended down to 0.03 continues to deny any chest pain no further ischemic workup indicated - (4) Mqyvq-[id number] kidney injury Current Visit: Yes Status: Acute Assessment and Plan: Serum creatinine last April 2018 ranged 3.34-8.92, most recent serum creatinines dating back to March and is here ranged from 1.17-1.86, we will obtain a bladder scan suspect urinary retention monitor strict I's and O's, will volume challenge patient (5) Diabetes Current Visit: Yes Status: Chronic Assessment and Plan: Insulin per protocol up to an A1c in the morning to evaluate glycemic control (6) Macrocytic anemia Current Visit: Yes Status: Acute Assessment and Plan: Would obtain workup check B12 folate also iron studies appears to have chronic a nemia dating back to 2013 (7) DVT prophylaxis Current Visit: Yes Status: Acute Assessment and Plan: Heparin subcutaneous - Time Spent with Patient Total time spent is greater than 50% in coordination of care (as documented) at patient's floor/unit and/or counseling patient: Internal Medicine: Result - Labs CBC & Chem 7: 04/04/19 09:39 04/04/19 09:39 Labs: Short CBC 04/04/19 04/04/19 Range/Units 02:12 09:39 WBC 28.7 H 30.0 H* (4.3-11.1) K/mcL Hgb 10.2 L 9.3 L (12.9-16.9) g/dL Hct 30.7 L 28.4 L (37.5-50.1) % Plt Count 231 211 (140-400) K/mcL Neutrophils # 25.1 H 26.0 H (1.6-8.9) K/mcL BMP 04/04/19 04/04/19 02:12 09:39 Sodium 133 L 133 L Potassium 4.6 4.1 Chloride 103 103 Carbon Dioxide 22 L 21 L BUN 69 H 57 H Creatinine 2.14 H 1.96 H Glucose 280 H 336 H Calcium 10.1 9.0 Cardiac Enzymes 04/04/19 04/04/19 Range/Units 02:12 09:39 Troponin I 0.04 H* 0.03 (< 0.04) ng/mL Liver Function 04/04/19 Range/Units 09:39 Total Bilirubin 0.3 (0.3-1.0) mg/dL AST 24 (13-39) Units/L ALT 26 (7-52) Units/L Alkaline Phosphatase 54 (34-104) Units/L Albumin 3.2 L (3.5-5.7) g/dL Urine 04/04/19 Range/Units 02:17 Urine Color Yellow (Yellow) Urine Clarity Clear (Clear) Urine pH 6.0 (5.0-8.0) pH Units Ur Specific [place] 1.018 (1.010-1.025) Urine Protein Trace (Neg-Trace) mg/dL Urine Glucose (UA) Normal (Normal) mg/dL - ABG Interpretation ABG results: PT/INR, D-dimer PT 13.7 Seconds (9.4-12.1) H 04/04/19 09:39 - Impressions Impressions Chest X-Ray 04/04/19 03:44 IMPRESSION: No acute cardiopulmonary process. D/ / Bright Peña MD / Bright Peña MD Interpreting Provider: Bright Peña MD Consult Discharge Plan - Plan Referrals: NONE,PCP [Primary Care Provider] - (1) Sepsis Qualifiers: Sepsis type: sepsis due to unspecified organism Sepsis acute organ dysfunction status: without acute organ dysfunction Qualified Code(s): A41.9 - Sepsis, unspecified organism (2) UTI (urinary tract infection) Qualifiers: Urinary tract infection type: acute cystitis Hematuria presence: without hematuria Qualified Code(s): N30.00 - Acute cystitis without hematuria (4) [id number] kidney injury Qualifiers: Acute renal failure type: unspecified Chronic kidney disease stage: unspecified stage Qualified Code(s): N17.9 - Acute kidney failure, unspecified; N18.9 - Chronic kidney disease, unspecified (5) Diabetes Qualifiers: Diabetes mellitus type: type 2 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
[2019-04-04] MEDS ORDERED: NON-FORMULARY MEDICATION 1 EACH EACH (Insulin Detemir 15 UNIT) SQ SCH (21:00)
[2019-04-04] MEDS ORDERED: Insulin DETEMIR 100 UNIT/ML X5UNITS SQ SCH ×2 (21:00)
[2019-04-05 03:22] LABS: Basophils # 0.1 K/mcL (0.0-0.2); Basophils % 0.3 %; Eosinophils # 0.1 K/mcL (0.0-0.6); Eosinophils % 0.2 %; Hematocrit 28.7 % (37.5-50.1); Hemoglobin 9.4 g/dL (12.9-16.9); Immature Granulocytes % 1.4 % (0-4); Lymphocytes # 1.4 K/mcL (0.6-4.6); Mean Corpuscular HGB Conc 32.8 g/dL (31.6-35.5); Mean Corpuscular Hemoglobin 32.6 pg (28.0-33.3); Mean Corpuscular Volume 99.7 fL (83.0-100.0); Mean Platelet Volume 11.8 fL (9.4-12.4); Monocytes # 1.5 K/mcL (0.0-1.3); Monocytes % 6.2 %; Neutrophils # 20.4 K/mcL (1.6-8.9); Platelet Count 227 K/mcL (140-400); Red Blood Count 2.88 M/mcL (4.19-5.50); Red Cell Distribution Width 11.9 % (11.5-14.5); Segmented Neutrophils % 85.9 %; White Blood Count 23.8 K/mcL (4.3-11.1)
[2019-04-05 04:12] LABS: BUN/Creatinine Ratio 27 (6-26); Blood Urea Nitrogen 44 mg/dL (8-23); Calcium 8.6 mg/dL (8.6-10.3); Carbon Dioxide 23 mEq/L (23-29); Chloride 105 mEq/L (98-107); Ferritin 518 ng/mL (20-250); Glucose 164 mg/dL (70-105); Iron < 10 mcg/dL (65-175); Magnesium 1.5 mg/dL (1.6-2.6); Osmolality,Calculated 295 (280-300); Potassium 4.4 mEq/L (3.5-5.1); Sodium 135 mEq/L (136-145); Transferrin 121 mg/dL (203-362); eGFR For African Americans 51 (> 60); eGFR For Non-African Americans 42 (> 60)
[2019-04-05 04:17] LABS: Folate > 22.3 ng/mL (3.0-16.0); Vitamin B12 548 pg/mL (250-1100)
[2019-04-05] MEDS: *HR* Heparin 5,000 UNIT/ML VIAL SQ SCH ×3 (06:44→21:44)
[2019-04-05] MEDS ORDERED: MAGNESIUM SULFATE IVPB ONE (08:00)
[2019-04-05] MEDS ORDERED: SODIUM CHLORIDE 0.9% IVPB ONE (08:00)
[2019-04-05] MEDS: Insulin LISPRO 300 UNITS/3 ML VIAL SQ SCH ×3 (08:15→15:58)
[2019-04-05] MEDS: Cholecalciferol (D-3) 1,000 UNIT (25MCG) TABLET PO SCH (08:16)
[2019-04-05] MEDS: Aspirin Enteric Coated 81 MG Tablet PO SCH (08:16)
[2019-04-05] MEDS: cefTRIAXone 2,000 MG in 0.9 % Sodium Chloride Mini Bag 100 ML IVPB SCH (08:46)
--- NOTE | 2019-04-05 13:01 | Internal Med Progress Note ---
Hospitalist Progress Note - Encounter Date of Encounter: 04/05/19 Time of Encounter: 09:00 - Subjective Interval History: Mr. Chavarria reports feeling better. GEN: Denies fever, chills or malaise HEENT: Denies headache blurriness, or dysphagia RESP: Denies SOB or cough CV: Denies chest pain or palpitations GI: Denies Nausea, vomiting, diarrhea or constipation Reviewed current in hospital medications with modifications see orders Reviewed Routine labs - Exam Vitals: Temp Pulse Resp BP Pulse Ox 98.6 F 91 18 126/60 95 04/05/19 10:38 04/05/19 10:38 04/05/19 10:38 04/05/19 10:38 04/05/19 10:38 Exam: GEN: NAD, A&O x 3, Pleasant and conversant SKIN: [place] warm acyanotic not jaundice HEART: RRR, no murmurs LUNGS: Slightly diminished but CTA no wheeze or crackles, overall non labored ABDOMEN; Soft, non tender or distended, BS x 4 normactive EXT: Ankle edema noted 3+ on the right foot 2+ in the left , Pedal pulses 1+, radial pulses 2+ foot drop noted on the right foot foot deformity noted bilaterally PSYCH: Mood and affect is appropriate - Assessment and Plan (1) Sepsis Current Visit: Yes Status: Acute Assessment and Plan: Secondary to likely underlying UTI, blood cultures pending and urine cultures reveals gram-negative samara leukocytosis trended down 30,000 to [address], patient denies any diarrhea but admits to urinary frequency but denies dysuria and empiric treatment with ceftriaxone high-dose pending sensitivities UA does reveal positive nitrites as such suspect gram-negative organism (2) UTI (urinary tract infection) Current Visit: Yes Status: Acute Assessment and Plan: UA revealed positive nitrites as well as leukocyte esterase high threshold for gram-negative organism which was revealed in urine culture so far continue ceftriaxone await sensitivity (3) Elevated troponin Current Visit: Yes Status: Acute Assessment and Plan: Patient found to have an elevated troponin of 0.04. No reports of chest pain per se or prior Hx of heart disease. EKG otherwise shows sinus rhythm with no evidence of ST or T-wave changes concerning for ischemia. Suspect demand ischemia in the setting of underlying infectious etiology/sepsis at this time suspected to be UTI. Troponin trended down to 0.03 continues to deny any chest pain no further ischemic workup indicated - (4) Aqlfj-zw-dwhylcv kidney injury Current Visit: Yes Status: Acute Assessment and Plan: Serum creatinine last April 2018 ranged 3.34-8.92, most recent serum creatinines dating back to March and is here ranged from 1.17-1.86, we will obtain a bladder scan suspect urinary retention monitor strict I's and O's, will volume challenge patient, now stated that patient is having some urinary incontinence as such measurement is not accurate serum creatinine trended down to 1.96-1.61 still at baseline, patient likely CKD III GFR ranged from 30-56 (5) Diabetes Current Visit: Yes Status: Chronic Assessment and Plan: Insulin per protocol up to an A1c in the morning to evaluate glycemic control, POC 168-285, would increase his Levemir from 15 units at bedtime to 25 (6) Macrocytic anemia Current Visit: Yes Status: Acute Assessment and Plan: Would obtain workup check B12 folate also iron studies appears to have chronic anemia dating back to 2013,work up reveals inflammatory anemia /anemia of chronic disease with elevated levels of folate B12 and ferritin. Hemoglobin today is 9.4 (7) DVT prophylaxis Current Visit: Yes Status: Acute Assessment and Plan: Heparin subcutaneous (8) Hypomagnesemia Current Visit: Yes Status: Acute Assessment and Plan: With supplement intravenously - Time Spent with Patient Total time spent is greater than 50% in coordination of care (as documented) at patient's floor/unit and/or counseling patient: Internal Medicine: Result - Labs CBC & Chem 7: 04/05/19 02:39 04/05/19 02:39 Labs: Short CBC 04/05/19 Range/Units 02:39 WBC 23.8 H (4.3-11.1) K/mcL Hgb 9.4 L (12.9-16.9) g/dL Hct 28.7 L (37.5-50.1) % Plt Count 227 (140-400) K/mcL Neutrophils # 20.4 H (1.6-8.9) K/mcL BMP 04/05/19 02:39 Sodium 135 L Potassium 4.4 Chloride 105 Carbon Dioxide 23 BUN 44 H Creatinine 1.61 H Glucose 164 H Calcium 8.6 Cardiac Enzymes 04/04/19 Range/Units 14:09 Troponin I 0.03 (< 0.04) ng/mL - ABG Interpretation ABG results: PT/INR, D-dimer PT 13.7 Seconds (9.4-12.1) H 04/04/19 09:39 Consult Discharge Plan - Plan Referrals: NONE,PCP [Primary Care Provider] - (1) Sepsis Qualifiers: Sepsis type: sepsis due to unspecified organism Sepsis acute organ dysfunction status: without acute organ dysfunction Qualified Code(s): A41.9 - Sepsis, unspecified organism (2) UTI (urinary tract infection) Qualifiers: Urinary tract infection type: acute cystitis Hematuria presence: without hematuria Qualified Code(s): N30.00 - Acute cystitis without hematuria (4) Fuurg-hf-qmyexla kidney injury Qualifiers: Acute renal failure type: unspecified Chronic kidney disease stage: unspec ified stage Qualified Code(s): N17.9 - Acute kidney failure, unspecified; N18.9 - Chronic kidney disease, unspecified (5) Diabetes Qualifiers: Diabetes mellitus type: type 2 Diabetes mellitus long term care administrator insulin use: [facility] long term care administrator use Diabetes mellitus complication status: without complication Qualified Code(s): E11.9 - Type 2 diabetes mellitus without complications
--- NOTE | 2019-04-05 13:06 | Electrocardiograph Report ---
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
[2019-04-05] MEDS ORDERED: Perflutren Lipid Microsphere 1.3 ML in 0.9 % Sodium Chloride 8.7 ML IVP ONE (13:28)
[2019-04-05] MEDS ORDERED: Insulin DETEMIR 100 UNIT/ML X5UNITS SQ SCH (21:00)
[2019-04-06] MEDS: *HR* Heparin 5,000 UNIT/ML VIAL SQ SCH (05:07)
[2019-04-06 05:20] LABS: Basophils # 0.1 K/mcL (0.0-0.2); Basophils % 0.6 %; Eosinophils # 0.3 K/mcL (0.0-0.6); Eosinophils % 2.6 %; Hematocrit 28.6 % (37.5-50.1); Hemoglobin 9.3 g/dL (12.9-16.9); Lymphocytes # 1.5 K/mcL (0.6-4.6); Lymphocytes % 12.5 %; Mean Corpuscular HGB Conc 32.5 g/dL (31.6-35.5); Mean Corpuscular Hemoglobin 33.1 pg (28.0-33.3); Mean Corpuscular Volume 101.8 fL (83.0-100.0); Mean Platelet Volume 11.3 fL (9.4-12.4); Monocytes % 8.5 %; Neutrophils # 8.7 K/mcL (1.6-8.9); Platelet Count 275 K/mcL (140-400); Red Blood Count 2.81 M/mcL (4.19-5.50); Red Cell Distribution Width 11.8 % (11.5-14.5); Segmented Neutrophils % 72.8 %
[2019-04-06 05:42] LABS: Calcium 8.3 mg/dL (8.6-10.3); Magnesium 1.9 mg/dL (1.6-2.6); Potassium 4.5 mEq/L (3.5-5.1)
[2019-04-06] MEDS: Aspirin Enteric Coated 81 MG Tablet PO SCH (08:44)
[2019-04-06] MEDS: Insulin LISPRO 300 UNITS/3 ML VIAL SQ SCH ×2 (08:44→12:15)
[2019-04-06] MEDS: cefTRIAXone 2,000 MG in 0.9 % Sodium Chloride Mini Bag 100 ML IVPB SCH (08:44)
[2019-04-06] MEDS: Cholecalciferol (D-3) 1,000 UNIT (25MCG) TABLET PO SCH (08:44)
--- NOTE | 2019-04-06 09:39 | Discharge Summary ---
- NOTES TO OUTPATIENT PROVIDER Notes to Outpatient Provider: Posthospital discharge for sepsis secondary to Escherichia coli UTI, patient will benefit from outpatient nephrology follow-up Orders not resulted at time of discharge: Pending orders 04/04/19 02:20 Culture,Blood [BC] Stat Date of Encounter: 04/06/19 Time of Encounter: 09:35 - Discharge Diagnosis (1) UTI (urinary tract infection) Priority: Primary Status: Acute Assessment and Plan: UA revealed positive nitrites as well as leukocyte esterase high threshold for gram-negative organism continue ceftriaxone await sensitivity report was pansensitive will discharge home on 7 day course of Cipro Qualifiers: Urinary tract infection type: acute cystitis Hematuria presence: without hematuria Qualified Code(s): N30.00 - Acute cystitis without hematuria (2) Sepsis Priority: Primary Status: Acute Assessment and Plan: Secondary to likely underlying UTI blood cultures negative 48 hours and urine cultures revealed Escherichia coli pansensitive will discharge him a seven-day course of ciprofloxacin, leukocytosis trended down from 30,000 to [id number] Qualifiers: Sepsis type: sepsis due to unspecified organism Sepsis acute organ dysfunction status: without acute organ dysfunction Qualified Code(s): A41.9 - Sepsis, unspecified organism (3) Elevated troponin Priority: Primary Status: Acute Assessment and Plan: Patient found to have an elevated troponin of 0.04. No reports of chest pain per se or prior Hx of heart disease. EKG otherwise shows sinus rhythm with no evidence of ST or T-wave changes concerning for ischemia. Suspect demand ischemia in the setting of underlying infectious etiology/sepsis at this time suspected to be UTI. Troponin trended down to 0.03, echocardiogram revealed EF 65-70% mild left ventricular diastolic dysfunction no significant valvular dysfunction continues to deny any chest pain no further ischemic workup indicated (4) Lzjns-mx-vwvthtk kidney injury Priority: Primary Status: Acute Assessment and Plan: Serum creatinine last April 2018 ranged 3.34-8.92, based on recent GFR did not back to 2018 patient likely CKD 3 at best with intermittent episode of acute renal failure. Most recent serum creatinines dating back to March and is here ranged from 1.17-1.86, we will obtain a bladder scan suspect urinary retention bladder scan was unremarkable, monitor strict I's and O's, will volume challenge patient which improved his serum creatinine from 2.14 on admission to 1.55 at discharge. He will benefit from been established and hoop expander as an outpatient Qualifiers: Acute renal failure type: unspecified Chronic kidney disease stage: unspecified stage Qualified Code(s): N17.9 - Acute kidney failure, unspecified; N18.9 - Chronic kidney disease, unspecified (5) Diabetes Priority: Primary Status: Chronic Assessment and Plan: Insulin per protocol up to an A1c was 6.4 indicative of prediabetes, however his POC 75-347, his Levemir was increased from 15 units at bedtime to 25, but based on day 6.4 A1c will switch back to his home dose of 15 units at discharge Qualifiers: Diabetes mellitus type: type 2 Diabetes 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 Chavarria is a 78 year old male hospitalized with sepsis workup revealed Escherichia coli UTI. Was initially treated with ceftriaxone empirically switched to ciprofloxacin at discharge additional 7 days blood cultures was negative. - Time Spent with Patient Total time spent providing and/or coordinating discharge services: - Discharge Medications Prescriptions: New Ciprofloxacin [Cipro] 500 mg PO BID 7 Days #14 tablet Continued Pioglitazone [Actos] 45 mg PO DAILY Lisinopril [Zestril] 10 mg PO HS Multivit-Min/FA/Lycopen/Lutein [A Thru Z Select Multivit Tab] 1 tab PO DAILY Pravastatin Sodium [Pravachol] 80 mg PO DAILY amLODIPine [Norvasc] 5 mg PO DAILY Aspirin [Adult Aspirin] 81 mg PO DAILY Insulin DETEMIR [Levemir] 15 unit SQ HS Ca/D3/Mag#11/Zinc/Production Superintendent/Giles/Bor [Caltrate 600+D Plus Tablet] 1 tab PO DAILY Cholecalciferol (Vitamin D3) [Dialyvite Vitamin D] 5,000 units PO DAILY Ferrous Sulfate 325 mg PO BID Insulin ASPART [Novolog Flexpen] 5 units SQ TIDWM Home Medications: Pioglitazone [Actos] 45 mg PO DAILY 11/13/15 [History] Lisinopril [Zestril] 10 mg PO HS 09/05/17 [History] Multivit-Min/FA/Lycopen/Lutein [A Thru Z Select Multivit Tab] 1 tab PO DAILY 09/05/17 [History] Pravastatin Sodium [Pravachol] 80 mg PO DAILY 09/05/17 [History] amLODIPine [Norvasc] 5 mg PO DAILY 05/11/18 [History] Aspirin [Adult Aspirin] 81 mg PO DAILY 04/04/19 [History] Ca/D3/Mag#11/Zinc/Production Superintendent/Giles/Bor [Caltrate 600+D Plus Tablet] 1 tab PO DAILY 04/04/19 [History] Cholecalciferol (Vitamin D3) [Dialyvite Vitamin D] 5,000 units PO DAILY 04/04/19 [History] Ferrous Sulfate 325 mg PO BID 04/04/19 [History] Insulin ASPART [Novolog Flexpen] 5 units SQ TIDWM 04/04/19 [History] Insulin DETEMIR [Levemir] 15 unit SQ HS 04/04/19 [History] Ciprofloxacin [Cipro] 500 mg PO BID 7 Days #14 tablet 04/06/19 [Rx] Allergies/Adverse Reactions: Allergy/AdvReac Type Severity Reaction Status Date / Time No Known Allergies Allergy Verified 04/04/19 16:11 Date of admission: 04/04/19 03:54 Primary care physician: PCP NONE Consults: 04/04/19 15:47 Consult to Medicare Interviewer [CONS] Routine Reason for SW Consult: family member called and asked for some help at home so she can get back to work, patient will not want inpatient rehab, Hx of polio and hip Fx(2016) has been wheelchair bound since 2016 but can transfer to wheelchair. interested in HH, have not ordered PT/OT yet due to not knowing if needed. Discharging clinician: Fatou Vela Anticipated date of discharge: 04/06/19 - Constitutional Vitals: Temp Pulse Resp BP Pulse Ox 99.2 F 83 17 128/47 95 04/06/19 06:49 04/06/19 06:49 04/06/19 06:49 04/06/19 06:49 04/06/19 06:49 Exam: GEN: NAD, A&O x 3, Pleasant and conversant SKIN: [place] warm acyanotic not jaundice HEART: RRR, no murmurs LUNGS: Slightly diminished but CTA no wheeze or crackles, overall non labored ABDOMEN; Soft, non tender or distended, BS x 4 normactive EXT: Ankle edema noted 3+ on the right foot 2+ in the left , Pedal pulses 1+, radial pulses 2+ foot drop noted on the right foot foot deformity noted bilaterally PSYCH: Mood and affect is appropriate - Patient Status Disposition: Home Health Service Condition: Fair Functional capacity at discharge: uses cane/walker Overall status at discharge: patient is progressing back to baseline - Discharge Instructions Follow Up With: NONE,PCP [Primary Care Provider] - - Diet and Activity Activity: as per physical therapy Diet: diabetic diet, low fat, low cholesterol, low salt diet
[2019-04-06 10:07] LABS: Estimated Average Glucose 137 mg/dl
[2019-04-06 11:00] VITALS: BP 131/58
--- NOTE | 2019-04-06 11:17 | Physician Discharge Referral ---
Home Health/Hosp Referral Info Transfer to: Home Health Provider in Charge Post Discharge: PCP - Diagnosis (1) UTI (urinary tract infection) Priority: Primary Status: Acute (2) Sepsis Priority: Primary Status: Acute (3) Elevated troponin Priority: Primary Status: Acute (4) Aoaho-qm-egcqxyz kidney injury Priority: Primary Status: Acute (5) Diabetes Priority: Primary Status: Chronic (6) DVT prophylaxis Priority: Secondary Status: Acute - Respiratory Orders Smoking Cessation: Smoking cessation has been advised. For more information, call the [place] [email or web address] Quit Line at [phone]-NOW. - Diet/Nutrition Diet/Nutrition Orders: Renal - Activity Activity Orders: Up ad zana, Ambulate - Services Needed Following services are medically necessary services: Nursing, Home Health Aide, Physical Therapy - Transfer Medications Prescriptions: Ciprofloxacin [Cipro] 500 mg PO BID 7 Days #14 tablet Transmission Status: Pending to [facility]/pharmacy #[id number] Home Medications: Pioglitazone [Actos] 45 mg PO DAILY 11/13/15 [History] Lisinopril [Zestril] 10 mg PO HS 09/05/17 [History] Multivit-Min/FA/Lycopen/Lutein [A Thru Z Select Multivit Tab] 1 tab PO DAILY 09/05/17 [History] Pravastatin Sodium [Pravachol] 80 mg PO DAILY 09/05/17 [History] amLODIPine [Norvasc] 5 mg PO DAILY 05/11/18 [History] Aspirin [Adult Aspirin] 81 mg PO DAILY 04/04/19 [History] Ca/D3/Mag#11/Zinc/Paintings Restorer/Giles/Bor [Caltrate 600+D Plus Tablet] 1 tab PO DAILY 04/04/19 [History] Cholecalciferol (Vitamin D3) [Dialyvite Vitamin D] 5,000 units PO DAILY 04/04/19 [History] Ferrous Sulfate 325 mg PO BID 04/04/19 [History] Insulin ASPART [Novolog Flexpen] 5 units SQ TIDWM 04/04/19 [History] Insulin DETEMIR [Levemir] 15 unit SQ HS 04/04/19 [History] Ciprofloxacin [Cipro] 500 mg PO BID 7 Days #14 tablet 04/06/19 [Rx] Allergies/Adverse Reactions: Allergy/AdvReac Type Severity Reaction Status Date / Time No Known Allergies Allergy Verified 04/04/19 16:11 Certification: Further, I certify that my clinical findings support that this patient is h omebound (i.e. absences from home require considerable and taxing effort and are for medical reasons or [employer] services or infrequently or short duration when for other reasons) because: Homebound Reason: Leaving home requires considerable and taxing effort due to condition Attestation: My signature below is to certify that this patient is under my care and that I, or nurse practitioner, or a physician's technical staff assistant working with me, has a [id number] encounter with this patient.
== END 2019-04-06 14:42 | disposition home health service (06) ==
LOC: 2ANU 01:57 → EMEROOARM 01:57 → SUATTDRO 03:54 → 2ANU 04:35
PROVIDERS: ADMIT Internal Medicine; ATTEND Pharmacist

== ENCOUNTER 2019-11-25 17:53 | Observation (INO) ==
[2019-11-25 19:00] LABS: Hematocrit 32.7 % (37.5-50.1); Hemoglobin 10.7 g/dL (12.9-16.9); Mean Corpuscular HGB Conc 32.7 g/dL (31.6-35.5); Mean Corpuscular Hemoglobin 32.6 pg (28.0-33.3); Mean Corpuscular Volume 99.7 fL (83.0-100.0); Mean Platelet Volume 11.3 fL (9.4-12.4); Platelet Count 247 K/mcL (140-400); Red Blood Count 3.28 M/mcL (4.19-5.50); Red Cell Distribution Width 11.9 % (11.5-14.5); White Blood Count 20.6 K/mcL (4.3-11.1)
[2019-11-25 19:08] LABS: Bilirubin,Urine Negative (Negative); Blood,Urine Negative (Negative); Clarity,Urine Clear (Clear); Color,Urine Yellow (Yellow); Glucose,Urine (UA) Normal (Normal); Ketones,Urine Negative (Negative); Leukocyte Esterase,Urine Negative (Negative); Nitrite,Urine Negative (Negative); Protein,Urine Negative (Neg-Trace); Specific Gravity,Urine 1.013 (1.010-1.025); Urobilinogen,Urine Normal (Normal)
[2019-11-25 19:24] LABS: Calcium 10.3 mg/dL (8.6-10.3); Potassium 4.5 mEq/L (3.5-5.1)
[2019-11-25 21:51] LABS: Basophils # 0.1 K/mcL (0.0-0.2); Basophils % 0.2 %; Eosinophils % 0.2 %; Immature Granulocytes % 0.7 % (0-4); Lymphocytes # 1.4 K/mcL (0.6-4.6); Lymphocytes % 6.7 %; Monocytes # 1.7 K/mcL (0.0-1.3); Monocytes % 8.2 %; Neutrophils # 17.3 K/mcL (1.6-8.9)
[2019-11-25] MEDS ORDERED: Naloxone 0.4 MG/ML INJ IVP PRN (22:47)
[2019-11-25] MEDS ORDERED: 0.9 % Sodium Chloride 1,000 ML IVC SCH (23:00)
[2019-11-25] MEDS ORDERED: *HR* Metoprolol 5 MG/5 ML VIAL IVP PRN (23:08)
[2019-11-25 23:34] LABS: INR 1.1; Prothrombin Time 12.6 Seconds (9.4-12.1)
[2019-11-25 23:48] LABS: Albumin 3.6 g/dL (3.5-5.7); Albumin/Globulin Ratio 1.1 (1.1-2.2); Bilirubin,Direct 0.1 mg/dL (0.0-0.2); Bilirubin,Indirect 0.3 mg/dL (0.0-1.0); Bilirubin,Total 0.4 mg/dL (0.3-1.0); Globulin 3.3 g/dL (2.4-3.5); Total Protein 6.9 g/dL (6.4-8.9)
[2019-11-26] MEDS: Insulin DETEMIR 100 UNIT/ML X5UNITS SQ SCH ×2 (00:25→20:52)
[2019-11-26] MEDS ORDERED: Vancomycin 1,500 MG/265 ML IV.SOLN IVPB ONE (02:00)
[2019-11-26] MEDS: Piperacillin/Tazobactam 3.375 GM in 0.9 % Sodium Chloride Mini Bag 100 ML IVPB SCH ×4 (02:22→23:40)
[2019-11-26] MEDS: *HR* Heparin 5,000 UNIT/ML VIAL SQ SCH ×2 (04:58→17:14)
[2019-11-26 05:20] LABS: Basophils % 0.2 %; Eosinophils # 0.1 K/mcL (0.0-0.6); Eosinophils % 0.5 %; Hematocrit 29.5 % (37.5-50.1); Hemoglobin 9.8 g/dL (12.9-16.9); Immature Granulocytes % 0.8 % (0-4); Lymphocytes # 1.4 K/mcL (0.6-4.6); Lymphocytes % 8.6 %; Mean Corpuscular HGB Conc 33.2 g/dL (31.6-35.5); Mean Corpuscular Hemoglobin 32.7 pg (28.0-33.3); Mean Corpuscular Volume 98.3 fL (83.0-100.0); Mean Platelet Volume 11.5 fL (9.4-12.4); Monocytes # 1.4 K/mcL (0.0-1.3); Monocytes % 8.5 %; Neutrophils # 13.7 K/mcL (1.6-8.9); Platelet Count 232 K/mcL (140-400); Red Cell Distribution Width 11.9 % (11.5-14.5); Segmented Neutrophils % 81.4 %; White Blood Count 16.8 K/mcL (4.3-11.1)
[2019-11-26 05:43] LABS: Calcium 9.3 mg/dL (8.6-10.3); Potassium 3.8 mEq/L (3.5-5.1)
[2019-11-26] MEDS: Insulin LISPRO 300 UNITS/3 ML VIAL SQ SCH ×3 (09:31→17:14)
[2019-11-26] MEDS ORDERED: Insulin LISPRO 300 UNITS/3 ML VIAL SQ SCH (21:00)
[2019-11-27] MEDS ORDERED: Vancomycin 1,250 MG/262.5 ML IV.SOLN IVPB SCH (02:00)
[2019-11-27 05:11] LABS: Basophils # 0.1 K/mcL (0.0-0.2); Basophils % 0.4 %; Eosinophils # 0.2 K/mcL (0.0-0.6); Eosinophils % 2.1 %; Hematocrit 29.7 % (37.5-50.1); Hemoglobin 9.7 g/dL (12.9-16.9); Lymphocytes # 1.3 K/mcL (0.6-4.6); Lymphocytes % 11.3 %; Mean Corpuscular HGB Conc 32.7 g/dL (31.6-35.5); Mean Corpuscular Hemoglobin 32.2 pg (28.0-33.3); Mean Corpuscular Volume 98.7 fL (83.0-100.0); Mean Platelet Volume 11.4 fL (9.4-12.4); Monocytes # 1.2 K/mcL (0.0-1.3); Monocytes % 10.3 %; Neutrophils # 8.6 K/mcL (1.6-8.9); Platelet Count 245 K/mcL (140-400); Red Blood Count 3.01 M/mcL (4.19-5.50); Red Cell Distribution Width 11.8 % (11.5-14.5); Segmented Neutrophils % 74.9 %; White Blood Count 11.5 K/mcL (4.3-11.1)
[2019-11-27 05:22] LABS: Potassium 3.6 mEq/L (3.5-5.1)
[2019-11-27] MEDS: *HR* Heparin 5,000 UNIT/ML VIAL SQ SCH (05:26)
[2019-11-27 07:16] VITALS: BP 127/57
[2019-11-27] MEDS ORDERED: D5% in Water 1,000 ML IVC PRN (07:21)
[2019-11-27] MEDS ORDERED: *HR* Dextrose 50 % in Water (Syg) 50 ML SYRINGE IVP PRN (07:21)
[2019-11-27] MEDS ORDERED: Dextrose Gel 15 GM/37.5 ML TUBE PO PRN ×2 (07:21)
[2019-11-27] MEDS: Insulin LISPRO 300 UNITS/3 ML VIAL SQ SCH (07:48)
[2019-11-27] MEDS: Piperacillin/Tazobactam 3.375 GM in 0.9 % Sodium Chloride Mini Bag 100 ML IVPB SCH (10:34)
== END 2019-11-27 13:14 | disposition home or self-care (01) ==
LOC: EMEROOARM 17:53 → 3BNU 17:53
PROVIDERS: ADMIT Student in an Organized Health Care Education/Training Program; ATTEND Student in an Organized Health Care Education/Training Program